=== PATIENT | male | born 1980 | race Caucasian/White ===

== ENCOUNTER 2017-05-15 09:42 | Inpatient (IN) | payer OTHER ==
--- NOTE | 2017-05-15 10:53 | Emergency Department Report ---
ED Headache HPI - General Chief Complaint: High BP Stated Complaint: HYPERTENSION,HEADACHE Time Seen by Provider: 05/15/17 10:36 Source: patient - History of Present Illness Timing/Duration: 4-6 hours Quality: moderate Head Injury Location: temporal, parietal Recent Head Trauma: frequent headaches, chronic headaches Associated Symptoms: weakness. denies: confusion, fatigue, facial pain, fever/ chills, flushing, loss of consciousness, nausea/vomiting, nasal congestion, nasal drainage, numbness in legs/feet, seizures, sinus infection, stiff neck, vision changes Allergies/Adverse Reactions: Allergies cefazolin Allergy (Severe, Verified 09/18/14 10:19) Anaphylaxis Home Medications: Ambulatory Orders Cinacalcet HCl [Sensipar] 90 mg PO HS 08/21/14 Labetalol [Normodyne TAB] 200 mg PO BID 08/21/14 Minoxidil [Loniten] 2.5 mg PO BID 08/21/14 NIFEdipine XL [Procardia Xl] 30 mg PO QDAY #30 tablet 11/19/14 cloNIDine [Catapres] 0.2 mg PO TID #90 tablet 11/19/14 Vancomycin/Ns 500 mg/100 ml 100 ml IV 3XW #1 bag 01/13/15 ED Review of Systems ROS: Stated complaint: HYPERTENSION,HEADACHE Other details as noted in HPI Comment: All other systems reviewed and negative ED Past Medical Hx - Past Medical History Previous Medical History?: Yes Hx Hypertension: Yes Hx Congestive Heart Failure: No Hx Diabetes: No Hx Liver Disease: No Hx Renal Disease: Yes (ESRD, dialysis T, Th, Sat) Hx Seizures: No Hx Asthma: No Hx COPD: No - Surgical History Past Surgical History?: Yes Additional Surgical History: Left upper extremity fistula (no longer uses). Vas -Cath (right subclavicular) - Social History Smoking Status: Current Some Day Smoker Substance Use Type: None - Medications Home Medications: Home Medications Medication Instructions Recorded Confirmed Last Taken Type Cinacalcet HCl [Sensipar] 90 mg PO HS 08/21/14 01/07/15 01/06/15 History Labetalol [Normodyne TAB] 200 mg PO BID 08/21/14 01/07/15 01/07/15 History Minoxidil [Loniten] 2.5 mg PO BID 08/21/14 01/07/15 01/07/15 History NIFEdipine XL [Procardia Xl] 30 mg PO QDAY #30 tablet 11/19/14 01/07/15 Rx cloNIDine [Catapres] 0.2 mg PO TID #90 tablet 11/19/14 01/07/15 01/07/15 Rx Vancomycin/Ns 500 mg/100 ml 100 ml IV 3XW #1 bag 01/13/15 Unknown Rx ED Physical Exam - General Limitations: No Limitations General appearance: alert, in no apparent distress - Head Head exam: Present: atraumatic, normocephalic - Eye Eye exam: Present: normal appearance, PERRL, EOMI - ENT ENT exam: Present: normal exam, mucous membranes moist - Neck Neck exam: Present: normal inspection - Respiratory Respiratory exam: Present: normal lung sounds bilaterally. Absent: respiratory distress, wheezes, rales, rhonchi, stridor, chest wall tenderness, accessory muscle use, decreased breath sounds - Cardiovascular Cardiovascular Exam: Present: regular rate, normal rhythm. Absent: systolic murmur, diastolic murmur, rubs, gallop - GI/Abdominal GI/Abdominal exam: Present: soft, normal bowel sounds. Absent: distended, tenderness, guarding, rebound - Rectal Rectal exam: Present: deferred - Extremities Exam Extremities exam: Present: full ROM, normal capillary refill, pedal edema. Absent: tenderness, calf tenderness - Back Exam Back exam: Present: normal inspection - Neurological Exam Neurological exam: Present: alert, oriented X3 - Psychiatric Psychiatric exam: Present: normal affect, normal mood - Skin Skin exam: Present: warm, dry, intact, normal color. Absent: rash ED Course Vital Signs 05/15/17 05/15/17 05/15/17 09:45 09:50 09:56 Temperature 97.9 F Pulse Rate 88 83 Respiratory 23 21 Rate Blood Pressure 250/136 250/136 250/136 O2 Sat by Pulse 95 97 Oximetry 05/15/17 05/15/17 05/15/17 10:00 10:10 10:20 Temperature Pulse Rate 68 66 68 Respiratory 23 25 H 23 Rate Blood Pressure 250/136 227/137 221/133 O2 Sat by Pulse 100 98 99 Oximetry 05/15/17 05/15/17 05/15/17 10:30 10:40 11:14 Temperature Pulse Rate 71 75 80 Respiratory 23 15 28 H Rate Blood Pressure 227/137 227/137 230/142 O2 Sat by Pulse 97 97 100 Oximetry 05/15/17 05/15/17 05/15/17 11:20 11:25 11:27 Temperature Pulse Rate 70 Respiratory 21 Rate Blood Pressure 212/126 230/142 230/142 O2 Sat by Pulse 96 Oximetry 05/15/17 05/15/17 05/15/17 11:30 11:40 11:50 Temperature Pulse Rate 67 67 72 Respiratory 22 20 23 Rate Blood Pressure 211/138 211/138 230/140 O2 Sat by Pulse 97 99 98 Oximetry ED Medical Decision Making - Lab Data Result diagrams: 05/15/17 10:36 05/15/17 10:36 - EKG Data Interpretation: unchanged when compared t - Radiology Data Radiology results: report reviewed, image reviewed - Medical Decision Making patient will need admission for emergent dialysis, i have given him labetalol and clonidine with not much success , discuss case with nephrology and IM and agree with plan for admission. Hyperkalemia , being treated with inuslin and albuterol, no HCO3 available , Mild volume overload and pulmonary edema. Critical care time in (mins) excluding proc time.: 35 Critical care attestation.: If time is entered above; I have spent that time in minutes in the direct care of this critically ill patient, excluding procedure time. ED Disposition Clinical Impression: Hypertension, ESRD (end stage renal disease) on dialysis, HTN (hypertension), malignant, Hyperkalemia, Pulmonary edema Disposition: OP ADMIT IP TO THIS HOSP Is pt being admited?: Yes Does the pt Need Aspirin: No Condition: Good Instructions: Hypertension (ED), Pulmonary Edema (ED) Referrals: PRIMARY CARE, [Primary Care Provider] - 3-5 Days Time of Disposition: 12:08
[2017-05-15 10:55] LABS: Hematocrit 27.9 % (35.5-45.6); Hemoglobin 9.3 gm/dl (11.8-15.2); Mean Corpuscular HGB Conc 34 % (32-34); Mean Corpuscular Hemoglobin 30 pg (28-32); Mean Corpuscular Volume 90 fl (84-94); Platelet Count 156 K/mm3 (140-440); Red Cell Distribution Width 14.9 % (13.2-15.2); White Blood Count 10.8 K/mm3 (4.5-11.0)
[2017-05-15] MEDS ORDERED: NORMODYNE IV ONE (10:56)
[2017-05-15] MEDS ORDERED: CATAPRES PO ONE (10:56)
[2017-05-15 11:10] LABS: Albumin 3.6 g/dL (3.9-5); Albumin/Globulin Ratio 1.1 %; Alkaline Phosphatase 74 units/L (35-129); Anion Gap 27 mmol/L; BUN/Creatinine Ratio 5.77; Blood Urea Nitrogen 71 mg/dL (9-20); Carbon Dioxide 20 mmol/L (22-30); Chloride 94.3 mmol/L (98-107); Glucose 98 mg/dL (75-100); Potassium 5.9 mmol/L (3.6-5.0); Sodium 135 mmol/L (137-145); Total Protein 6.8 g/dL (6.3-8.2)
[2017-05-15 11:16] LABS: Alanine Aminotransferase < 5 units/L (7-56)
--- NOTE | 2017-05-15 11:26 | Cat Scan Report ---
CT HEAD WITHOUT CONTRAST INDICATION: Headache. COMPARISON: None similar. FINDINGS: Noncontrast head CT demonstrates normal ventricles and sulci without acute or recent infarct, hemorrhage, mass effect or midline shift. No abnormal extra-axial fluid collections. Benign bilateral basal ganglia calcifications. Posterior fossa structures and basilar cisterns appear within normal limits. Symmetric eye globes. Nasal septal deviation. Clear paranasal sinuses and mastoid air cells. Intact calvarium. Normal overlying scalp soft tissues. CONCLUSION: No acute intracranial CT abnormality, as described. Thank you for the opportunity to participate in this patient's care.
[2017-05-15] MEDS ORDERED: PROVENTIL IH ONE (11:27)
--- NOTE | 2017-05-15 12:03 | XRay Report ---
PORTABLE CHEST INDICATION: Weakness. COMPARISON: 01/05/2015 FINDINGS: Portable, frontal chest radiograph demonstrates interval right sided central catheter removal. Stable cardiomediastinal silhouette. Subtle left pleural effusion now not excluded with new minimal fluid or thickening along the right minor fissure and mild bilateral bronchovascular prominence/redistribution. Intact bones. EKG leads. CONCLUSION: Mild pulmonary vascular congestion developing with few other findings, as above. Please correlate. Thank you for the opportunity to participate in this patient's care.
[2017-05-15] MEDS ORDERED: ZOFRAN IV PRN (12:10)
[2017-05-15] MEDS ORDERED: PROVENTIL IH PRN (12:10)
[2017-05-15] MEDS ORDERED: TYLENOL PO PRN (12:10)
[2017-05-15] MEDS ORDERED: DULCOLAX PR PRN (12:10)
--- NOTE | 2017-05-15 12:31 | History and Physical Report ---
<JT YANEZ - Last Filed: 05/15/17 14:40> History of Present Illness Date of examination: 05/15/17 Date of admission: 05/15/2017 Chief complaint: headache History of present illness: Patient is a 37 years old [place] male with the past medical history of hypertension and ESRD on Monday, and Monday. Patient complains a frequent bilateral headache since Monday (05/13/17).He described the pain as tightness and a gradual onset. The patient had difficulty of sleeping on Monday because of the pain. The pain continued to gradually increase in severity to an 8/10 today. The pain was exacerbated with movement, talking or working. Patient take Tylenol but was not significantly relieved. Patient states, he has a chronic headaches but not this intense. He denies confusion, fatigue, facial pain, fever/chills, flushing, loss of consciousness, nausea/vomiting, nasal congestion, nasal drainage, numbness in legs/feet, seizures, sinus infection, stiff neck, vision changes. Patient noncompliance with dialysis last hemodialysis that he had was on Monday05/15/17. CT of the head shows no acute intracranial abnormality. Chest x-ray reveals mild pulmonary vascular congestion. Past History Past Medical History: ESRD (on Hemodialysis), hypertension, other Past Surgical History: Other (Vascath placement) Social history: Lives alone Family history: hypertension Medications and Allergies Allergies Allergy/AdvReac Type Severity Reaction Status Date / Time cefazolin Allergy Severe Anaphylaxis Verified 09/18/14 10:19 Home Medications Medication Instructions Recorded Confirmed Last Taken Type Minoxidil [Loniten] 2.5 mg PO BID 08/21/14 05/15/17 05/14/17 History Cinacalcet [Sensipar] 30 mg PO QHS 05/15/17 05/15/17 05/14/17 History Clonidine HCl [Catapres] 0.3 mg PO TID 05/15/17 05/15/17 05/14/17 History Lisinopril [Zestril] 40 mg PO BID 05/15/17 05/15/17 05/14/17 History Vit B Cplx #11/FA/C/Biot/Zn Ox 1 each PO DAILY 05/15/17 05/15/17 05/14/17 History [Dialyvite with Zinc Tablet] amLODIPine [Norvasc] 10 mg PO QHS 05/15/17 05/15/17 05/14/17 History Active Meds: Active Medications Acetaminophen (Tylenol) 650 mg PO Q4H PRN PRN Reason: Pain MILD(1-3)/Fever >100.5/HOLLEY Albuterol (Proventil) 2.5 mg IH Q4HRT PRN PRN Reason: Shortness Of Breath Amlodipine Besylate (Norvasc) 10 mg PO QHS DAO Bisacodyl (Dulcolax) 10 mg [place] QDAY PRN PRN Reason: [place] [facility] [place]acalcet (Sensipar) 30 mg PO QHS DAO Clonidine HCl (Catapres) 0.2 mg PO TID DAO Clonidine HCl (Catapres) 0.1 mg PO TID DAO Lisinopril (Zestril) 40 mg PO BID DAO Minoxidil (Loniten) 2.5 mg PO BID DAO Multivit/Ca Carb/B Cmplx/FA/Prenat (Renal Caps) 1 cap PO QDAY DAO Ondansetron HCl (Zofran) 4 mg IV Q8H PRN PRN Reason: N/V unrelieved by Reglan Review of Systems Constitutional: no weight loss, no weight gain, no fever Ears, nose, mouth and throat: headache, no ear pain, no ear discharge, no tinnitis, no decreased hearing, no nose pain Cardiovascular: no chest pain, no orthopnea, no palpitations Respiratory: cough, no cough with sputum, no excessive sputum, no hemoptysis, no shortness of breath, no dyspnea on exertion Gastrointestinal: no abdominal pain, no nausea, no vomiting, no diarrhea Genitourinary Male: no dysuria, no hematuria, no flank pain, no discharge, no urinary frequency Rectal: no pain, no incontinence Musculoskeletal: no neck stiffness, no neck pain, no shooting arm pain, no arm numbness/tingling Integumentary: no rash, no pruritis, no redness, no sores Neurological: no transient paralysis, no paralysis, no weakness, no parathesias , no numbness Psychiatric: no anxiety, no memory loss, no change in sleep habits Endocrine: no cold intolerance, no heat intolerance, no polyphagia Hematologic/Lymphatic: no easy bruising, no easy bleeding Allergic/Immunologic: no urticaria, no allergic rhinitis Exam - Constitutional Vitals: Temp Pulse Resp BP Pulse Ox 97.9 F 72 23 230/140 98 05/15/17 09:56 05/15/17 11:50 05/15/17 11:50 05/15/17 11:50 05/15/17 11:50 General appearance: Present: no acute distress - EENT Eyes: Present: PERRL ENT: hearing intact - Respiratory Respiratory: bilateral: CTA - Cardiovascular Heart rate: 72 Rhythm: regular Heart Sounds: Present: S1 & S2 - Extremities Extremities: no ischemia Peripheral Pulses: within normal limits - Abdominal General gastrointestinal: Present: soft, non-tender Male genitourinary: Present: deferred - Rectal Rectal Exam: deferred - Integumentary Integumentary: Present: clear, warm, dry - Musculoskeletal Musculoskeletal: strength equal bilaterally - Psychiatric Psychiatric: appropriate mood/affect - Neurologic Neurologic: CNII-XII intact - Allied Health Allied health notes reviewed: nursing Results - Labs CBC & Chem 7: 05/15/17 10:36 05/15/17 10:36 Labs: Laboratory Last Values WBC 10.8 K/mm3 (4.5-11.0) 05/15/17 10:36 RBC 3.10 M/mm3 (3.65-5.03) L 05/15/17 10:36 Hgb 9.3 gm/dl (11.8-15.2) L 05/15/17 10:36 Hct 27.9 % (35.5-45.6) L 05/15/17 10:36 MCV 90 fl (84-94) 05/15/17 10:36 MCH 30 pg (28-32) 05/15/17 10:36 MCHC 34 % (32-34) 05/15/17 10:36 RDW 14.9 % (13.2-15.2) 05/15/17 10:36 Plt Count 156 K/mm3 (140-440) 05/15/17 10:36 Sodium 135 mmol/L (137-145) L 05/15/17 10:36 Potassium 5.9 mmol/L (3.6-5.0) H 05/15/17 10:36 Chloride 94.3 mmol/L (98-107) L 05/15/17 10:36 Carbon Dioxide 20 mmol/L (22-30) L 05/15/17 10:36 Anion Gap 27 mmol/L 05/15/17 10:36 BUN 71 mg/dL (9-20) H 05/15/17 10:36 Creatinine 12.3 mg/dL (0.8-1.5) H 05/15/17 10:36 Estimated GFR 5 ml/min 05/15/17 10:36 BUN/Creatinine Ratio 5.77 % 05/15/17 10:36 Glucose 98 mg/dL (75-100) 05/15/17 10:36 Calcium 11.0 mg/dL (8.4-10.2) H 05/15/17 10:36 Total Bilirubin 0.30 mg/dL (0.1-1.2) 05/15/17 10:36 AST 7 units/L (5-40) 05/15/17 10:36 ALT < 5 units/L (7-56) L 05/15/17 10:36 Alkaline Phosphatase 74 units/L (35-129) 05/15/17 10:36 Total Protein 6.8 g/dL (6.3-8.2) 05/15/17 10:36 Albumin 3.6 g/dL (3.9-5) L 05/15/17 10:36 Albumin/Globulin Ratio 1.1 % 05/15/17 10:36 - Imaging and Cardiology Chest x-ray: image reviewed (mild pulmonary vascular congestion) CT Scan - head: image reviewed Assessment and Plan Assessment and plan: ASSESSMENT/PLAN Patient is a 37 years old Finnish male with the past medical history of hypertension and ESRD on Monday, and Monday. Patient complains a frequent bilateral headache since Monday (05/13/17). CT of the head shows no acute intracranial abnormality. Chest x-ray reveals mild pulmonary vascular congestion. Patient have found that on hypertensive crisis, fluid overload, hyperkalemia and hyponatremia. Patient noncompliance with dialysis. Acute on chronic end-stage renal disease (ESRD) needing hemodialysis Patient will have emergent hemodialysis today Nephrology consulted Hyperkalemia Patient given Albuterol and insulin in the ED Patient will have dialysis that will correct potassium level We will repeat the BMP Closely monitor electrolytes Anemia related to chronic kidney disease Stable at this time Closely monitor CBC Noncompliance Discussed with patient about why the treatment plan and dialysis is important and Patient agreed upon course of action. Hypertension urgency We will resume home antihypertensive meds Hydralazine IV as needed for blood pressure systolic>160 Hyponatremia Most likely due to volume overload, patient will have Dialysis today that will be correct it. We will repeat BMP after HD Headache CT of the head shows no acute intracranial abnormality Most likely from hypertension DVT prophylaxis Heparin <SHAYLA IVORY M - Last Filed: 05/15/17 20:43> History of Present Illness Date of admission: 05/15/17 12:10 Medications and Allergies Active Meds: Active Medications Acetaminophen (Tylenol) 650 mg PO Q4H PRN PRN Reason: Pain MILD(1-3)/Fever >100.5/HOLLEY Last Admin: 05/15/17 18:00 Dose: 650 mg Albuterol (Proventil) 2.5 mg IH Q4HRT PRN PRN Reason: Shortness Of Breath Amlodipine Besylate (Norvasc) 10 mg PO QHS [facility] Last Admin: 05/15/17 20:17 Dose: 10 mg Bisacodyl (Dulcolax) 10 mg SC QDAY PRN PRN Reason: [place] [facility] [place]acalcet (Sensipar) 30 mg PO QHS [facility] Clonidine HCl (Catapres) 0.2 mg PO TID [facility] Last Admin: 05/15/17 20:16 Dose: 0.2 mg Clonidine HCl (Catapres) 0.1 mg PO TID [facility] Last Admin: 05/15/17 20:16 Dose: 0.1 mg Hydralazine HCl (Apresoline) 20 mg IV Q4HR PRN PRN Reason: BP >160/100 Lisinopril (Zestril) 40 mg PO BID [facility] Minoxidil (Loniten) 2.5 mg PO BID [facility] Multivit/Ca Carb/B Cmplx/FA/Prenat (Renal Caps) 1 cap PO QDAY [facility] Ondansetron HCl (Zofran) 4 mg IV Q8H PRN PRN Reason: N/V unrelieved by Reglan Exam - Constitutional Vitals: Temp Pulse Resp BP Pulse Ox 97.8 F 72 20 202/125 97 05/15/17 19:56 05/15/17 19:56 05/15/17 19:56 05/15/17 20:16 05/15/17 19:56 Results - Labs CBC & Chem 7: 05/15/17 10:36 05/15/17 10:36 Labs: Laboratory Last Values WBC 10.8 K/mm3 (4.5-11.0) 05/15/17 10:36 RBC 3.10 M/mm3 (3.65-5.03) L 05/15/17 10:36 Hgb 9.3 gm/dl (11.8-15.2) L 05/15/17 10:36 Hct 27.9 % (35.5-45.6) L 05/15/17 10:36 MCV 90 fl (84-94) 05/15/17 10:36 MCH 30 pg (28-32) 05/15/17 10:36 MCHC 34 % (32-34) 05/15/17 10:36 RDW 14.9 % (13.2-15.2) 05/15/17 10:36 Plt Count 156 K/mm3 (140-440) 05/15/17 10:36 Sodium 135 mmol/L (137-145) L 05/15/17 10:36 Potassium 5.9 mmol/L (3.6-5.0) H 05/15/17 10:36 Chloride 94.3 mmol/L (98-107) L 05/15/17 10:36 Carbon Dioxide 20 mmol/L (22-30) L 05/15/17 10:36 Anion Gap 27 mmol/L 05/15/17 10:36 BUN 71 mg/dL (9-20) H 05/15/17 10:36 Creatinine 12.3 mg/dL (0.8-1.5) H 05/15/17 10:36 Estimated GFR 5 ml/min 05/15/17 10:36 BUN/Creatinine Ratio 5.77 % 05/15/17 10:36 Glucose 98 mg/dL (75-100) 05/15/17 10:36 POC Glucose 105 (70-105) 05/15/17 12:59 Calcium 11.0 mg/dL (8.4-10.2) H 05/15/17 10:36 Total Bilirubin 0.30 mg/dL (0.1-1.2) 05/15/17 10:36 AST 7 units/L (5-40) 05/15/17 10:36 ALT < 5 units/L (7-56) L 05/15/17 10:36 Alkaline Phosphatase 74 units/L (35-129) 05/15/17 10:36 Total Protein 6.8 g/dL (6.3-8.2) 05/15/17 10:36 Albumin 3.6 g/dL (3.9-5) L 05/15/17 10:36 Albumin/Globulin Ratio 1.1 % 05/15/17 10:36
[2017-05-15] MEDS ORDERED: D50W (25GM) IV ONE (13:10)
--- NOTE | 2017-05-15 13:26 | Admit Criteria Form ---
Admission Criteria Documentation: HYPERTENSION Clinical Indications for Admission to Inpatient Care ( yurok/check or initial the applicable condition/criteria) Admission is indicated for 1 or more of the following(1)(2)(3)(4)(5)(6)(7)(8)(9) (10): []I. Hypertensive emergency, with evidence of acute and progressing target organ disease as indicated by 1 or more of the following: [ ]a) Hypertensive encephalopathy (e.g., confusion, altered mental status) (11) [ ]b) Cerebral infarction [ ]c) Intracranial hemorrhage [ ]d) Myocardial ischemia or infarction [ ]e) Heart failure (eg. Pulmonary edema) [ ]f) Aortic dissection [ ]g) Increased creatinine (new) with reduction of more than 50% in estimated glomerular filtration rate from baseline [ ]h) Seizure [ ]i) Papilledema [ ]j) Retinal hemorrhage [ ]k) Microangiopathic hemolytic anemia [ ]l) Other significant finding secondary to hypertension [ ]II. Adrenergic or sympathomimetic crisis (e.g., severe hypertension due to pheochromocytoma crisis, cocaine, phencyclindine, or amphetamine intoxication, or clonidine withdrawal) [X]III. Severe hypertension (SBP greater than 180 mmHg or DBP greater than 110 mmHg or greater than the 95th percentile for age, gender, and height in pediatric patients) that cannot be controlled (e.g., to SBP less than 160 mmHg and DBP less than 100 mmHg in adults) by treatment with oral medication in emergency department or observation care (12) Extended stay beyond goal length of staymay be needed for(21)(22): [ ]a) Persistent hypertensive encephalopathy [ ]b) Continuation of pulmonary edema [ ]c) Recurring or persistent severe hypertension [ ]d) Target organ damage (eg, angina, stroke, aortic dissection) The original [employer] content created by [employer] has been revised. The portions of the content which have been revised are identified through the use of italic text or in bold, and [employer] has neither reviewed nor approved the modified material. All other unmodified content is copyright [employer]. Please see references footnoted in the original [employer] edition 2016 Admission Criteria Met: Yes
[2017-05-15] MEDS ORDERED: NON-FORMULARY (Clonidine Hcl [Catapres] 0.3 MG) PO SCH (14:00)
[2017-05-15] MEDS: CATAPRES PO SCH ×4 (14:07→20:16)
[2017-05-15] MEDS ORDERED: NACL 0.9 (PRIMING MACHINE ONLY DIALYSIS) MC ONE (17:09)
[2017-05-15] MEDS: NORVASC PO SCH ×2 (20:17→21:50)
[2017-05-15] MEDS: LONITEN PO SCH (21:34)
[2017-05-15] MEDS: ZESTRIL PO SCH (21:49)
[2017-05-15] MEDS ORDERED: SENSIPAR PO SCH (22:00)
[2017-05-16] MEDS: APRESOLINE IV PRN ×2 (00:22→04:55)
[2017-05-16 04:12] LABS: Basophils % (Auto) 1.5 % (0.0-1.8); Hematocrit 29.3 % (35.5-45.6); Hemoglobin 10.1 gm/dl (11.8-15.2); Mean Corpuscular HGB Conc 34 % (32-34); Mean Corpuscular Hemoglobin 31 pg (28-32); Mean Corpuscular Volume 89 fl (84-94); Platelet Count 175 K/mm3 (140-440); Red Blood Count 3.29 M/mm3 (3.65-5.03); Red Cell Distribution Width 14.8 % (13.2-15.2); White Blood Count 9.5 K/mm3 (4.5-11.0)
[2017-05-16 04:26] LABS: BUN/Creatinine Ratio 4.92; Calcium 9.5 mg/dL (8.4-10.2); Chloride 91.3 mmol/L (98-107); Potassium 4.2 mmol/L (3.6-5.0)
[2017-05-16] MEDS: CATAPRES PO SCH ×4 (08:47→15:05)
--- NOTE | 2017-05-16 09:06 | Consultation ---
History of Present Illness - Reason for Consult Consult date: 05/16/17 end stage renal disease, hyperkalemia, accelerated hypertension Requesting physician: SHAYLA IVORY - History of Present Illness Patient is a 37 years old English male with the past medical history of hypertension and ESRD on Monday, and Monday. Patient complains a frequent bilateral headache since Monday (05/13/17).He described the pain as tightness and a gradual onset. The patient had difficulty of sleeping on Monday because of the pain. The pain continued to gradually increase in severity to an 8/10 today. The pain was exacerbated with movement, talking or working. Patient take Tylenol but was not significantly relieved. Patient states, he has a chronic headaches but not this intense. He denies confusion, fatigue, facial pain, fever/chills, flushing, loss of consciousness, nausea/vomiting, nasal congestion, nasal drainage, numbness in legs/feet, seizures, sinus infection, stiff neck, vision changes. Patient noncompliance with dialysis last hemodialysis that he had was on Monday05/15/17. CT of the head shows no acute intracranial abnormality. Chest x-ray reveals mild pulmonary vascular congestion. Past History Past Medical History: anemia, dialysis, ESRD (on Hemodialysis), hypertension, renal failure, other Past Surgical History: Other (Vascath placement) Social history: Lives alone Family history: hypertension Medications and Allergies Allergies Allergy/AdvReac Type Severity Reaction Status Date / Time cefazolin Allergy Severe Anaphylaxis Verified 09/18/14 10:19 Home Medications Medication Instructions Recorded Confirmed Last Taken Type Minoxidil [Loniten] 2.5 mg PO BID 08/21/14 05/15/17 05/14/17 History Cinacalcet [Sensipar] 30 mg PO QHS 05/15/17 05/15/17 05/14/17 History Clonidine HCl [Catapres] 0.3 mg PO TID 05/15/17 05/15/17 05/14/17 History Lisinopril [Zestril] 40 mg PO BID 05/15/17 05/15/17 05/14/17 History Vit B Cplx #11/FA/C/Biot/Zn Ox 1 each PO DAILY 05/15/17 05/15/17 05/14/17 History [Dialyvite with Zinc Tablet] amLODIPine [Norvasc] 10 mg PO QHS 05/15/17 05/15/17 05/14/17 History Active Meds: Active Medications Acetaminophen (Tylenol) 650 mg PO Q4H PRN PRN Reason: Pain MILD(1-3)/Fever >100.5/[place]OLLEY Last Admin: 05/15/17 18:00 Dose: 650 mg Albuterol (Proventil) 2.5 mg IH Q4HRT PRN PRN Reason: Shortness Of Breath Amlodipine Besylate (Norvasc) 10 mg PO QHS [facility] Last Admin: 05/15/17 21:50 Dose: Not Given Bisacodyl (Dulcolax) 10 mg [place] QDAY PRN PRN Reason: Constipation unrelieved by MOM Cinacalcet (Sensipar) 30 mg PO QHS [facility] Last Admin: 05/15/17 21:34 Dose: 30 mg Clonidine HCl (Catapres) 0.2 mg PO TID [facility] Last Admin: 05/16/17 08:47 Dose: 0.2 mg Clonidine HCl (Catapres) 0.1 mg PO TID [facility] Last Admin: 05/16/17 08:47 Dose: 0.1 mg Hydralazine HCl (Apresoline) 20 mg IV Q4HR PRN PRN Reason: BP >160/100 Last Admin: 05/16/17 04:55 Dose: 20 mg Lisinopril (Zestril) 40 mg PO BID [facility] Last Admin: 05/15/17 21:49 Dose: 40 mg Minoxidil (Loniten) 2.5 mg PO BID [facility] Last Admin: 05/15/17 21:34 Dose: 2.5 mg Multivit/Ca Carb/B Cmplx/FA/Prenat (Renal Caps) 1 cap PO QDAY [facility] Ondansetron HCl (Zofran) 4 mg IV Q8H PRN PRN Reason: N/V unrelieved by Reglan Review of Systems Constitutional: fatigue, weakness, malaise Exam - Vital Signs Vital signs: Vital Signs BP 250/136 05/15/17 09:45 - Physical Exam Narrative exam: General appearance: Present: no acute distress - EENT Eyes: Present: PERRL ENT: hearing intact - Respiratory Respiratory: bilateral: CTA - Cardiovascular Heart rate: 72 Rhythm: regular Heart Sounds: Present: S1 & S2 - Extremities Extremities: no ischemia Peripheral Pulses: within normal limits - Abdominal General gastrointestinal: Present: soft, non-tender Male genitourinary: Present: deferred - Rectal Rectal Exam: deferred - Integumentary Integumentary: Present: clear, warm, dry - Musculoskeletal Musculoskeletal: strength equal bilaterally - Psychiatric Psychiatric: appropriate mood/affect - Neurologic Neurologic: CNII-XII intact Results - Lab Results 05/16/17 03:37 05/16/17 03:37 Most recent lab results Calcium 9.5 mg/dL (8.4-10.2) 05/16/17 03:37 Assessment and Plan Impression: * ESRD * ACC HTN * hyperkalemia * anemia in esrd * Sec Hyperparathyroidism Plan: * s/p stat hd and HD TTHSAT * uf as tolerated * control bp * stress compliance with bp meds and dialysis * strict i/os * renal diet * fluid restriction * home after hd today from renal standpoint
--- NOTE | 2017-05-16 09:20 | Discharge Summary ---
Providers - Providers Date of Admission: 05/15/17 12:10 Attending physician: SHAYLA IVORY MD 05/15/17 12:25 Consult to Physician [CONS] Routine Consulting Provider: CLEVELAND DELGADO Reason For Exam: ESRD, on HD Place consult to:: yes Notified:: yes Phone number called:: yes Primary care physician: VIANEY MO MD Hospitalization Condition: Good Hospital course: 37-year-old male with a past medical history of uncontrolled hypertension, end- stage renal disease and admits to missing dialysis. Presented with headache and elevated blood pressure, he was found to have hyperkalemia and was taken to urgent hemodialysis. He was treated with IV blood pressure medications and his oral medications were restarted, he also admitted to poor compliance with them. After receiving hemodialysis patient improved, his blood pressure also improved. On hyperkalemia resolved. After being counseled about improving compliance was discharged home in an improved condition Discharge diagnoses Hypertensive urgency End-stage renal disease Hyperkalemia Metabolic acidosis Disposition: TO HOME OR SELFCARE Time spent for discharge: 33 minutes Core Measure Documentation - Palliative Care Palliative Care/ Comfort Measures: Not Applicable - Core Measures Any of the following diagnoses?: none Exam - Constitutional Vitals: Temp Pulse Resp BP Pulse Ox 97.9 F 80 21 179/111 98 05/16/17 04:43 05/16/17 06:00 05/16/17 04:43 05/16/17 04:55 05/16/17 04:43 General appearance: Present: no acute distress, well-nourished - EENT Eyes: Present: PERRL ENT: hearing intact, clear oral mucosa - Neck Neck: Present: supple, normal ROM - Respiratory Respiratory effort: normal Respiratory: bilateral: CTA - Cardiovascular Heart Sounds: Present: S1 & S2. Absent: rub, click - Extremities Extremities: pulses symmetrical, No edema Peripheral Pulses: within normal limits - Abdominal General gastrointestinal: Present: soft, non-tender, non-distended, normal bowel sounds Male genitourinary: Present: normal - Integumentary Integumentary: Present: clear, warm, dry - Musculoskeletal Musculoskeletal: gait normal, strength equal bilaterally - Psychiatric Psychiatric: appropriate mood/affect, intact judgment & insight - Neurologic Neurologic: CNII-XII intact, moves all extremities Plan Follow up with: PRIMARY CAREMD [Primary Care Provider] - 3-5 Days Prescriptions: Clonidine HCl [Catapres] 0.3 mg PO TID #90 tablet Lisinopril [Zestril] 40 mg PO DAILY #30 tablet Minoxidil [Loniten] 2.5 mg PO BID #60 tablet NIFEdipine XL [Procardia Xl] 60 mg PO Q12HR #60 tablet
[2017-05-16] MEDS ORDERED: NON-FORMULARY (Vit B Cplx #11/Fa/C/Biot/Zn Ox [Dialyvite With Zinc Tablet] 1 EACH) PO SCH (10:00)
[2017-05-16] MEDS ORDERED: Renal Caps PO SCH (10:00)
[2017-05-16] MEDS ORDERED: PROCARDIA XL PO SCH (10:00)
[2017-05-16 14:36] VITALS: BP 171/111
[2017-05-16] MEDS: LONITEN PO SCH (15:04)
[2017-05-16] MEDS: ZESTRIL PO SCH (15:05)
== END 2017-05-16 17:32 | disposition home or self-care (01) | DRG 682 ==
LOC: ED 09:42 → 4A 12:10
PROVIDERS: ADMIT Internal Medicine; ATTEND Internal Medicine
PROC: 5A1D60Z (ICD-10-PCS; principal; 2017-05-15)
DX: I12.0 Hypertensive chronic kidney disease with stage 5 chronic kidney disease or end stage renal disease (principal); N18.6 End stage renal disease; I16.1 Hypertensive emergency; E87.1 Hypo-osmolality and hyponatremia; I16.9 Hypertensive crisis, unspecified; E87.5 Hyperkalemia; Z60.2 Problems related to living alone; D63.1 Anemia in chronic kidney disease; I16.0 Hypertensive urgency; E87.70 Fluid overload, unspecified; E21.3 Hyperparathyroidism, unspecified; I87.8 Other specified disorders of veins; R09.89 Other specified symptoms and signs involving the circulatory and respiratory systems; Z88.1 Allergy status to other antibiotic agents; Z91.15 Patient's noncompliance with renal dialysis; Z99.2 Dependence on renal dialysis; Z71.89 Other specified counseling; Z82.49 Family history of ischemic heart disease and other diseases of the circulatory system
CPT/HCPCS: 36415; 70450; 71010; 80048; 80053; 82962; 85025; 85027; 93005; 93010; 94640; 96374; 96375; 99291; 99406; J0360; J1815; J7030

== ENCOUNTER 2017-07-15 11:47 | Emergency (ER) | payer SELFPAY ==
[2017-07-15 12:58] LABS: Hematocrit 40.1 % (35.5-45.6); Hemoglobin 13.1 gm/dl (11.8-15.2); Mean Corpuscular HGB Conc 33 % (32-34); Mean Corpuscular Hemoglobin 32 pg (28-32); Mean Corpuscular Volume 97 fl (84-94); Platelet Count 181 K/mm3 (140-440); Red Blood Count 4.15 M/mm3 (3.65-5.03); Red Cell Distribution Width 15.3 % (13.2-15.2); White Blood Count 7.1 K/mm3 (4.5-11.0)
[2017-07-15 13:46] LABS: Chloride 94.3 mmol/L (98-107)
[2017-07-15 14:31] LABS: Basophils % (Manual) 0 % (0.0-1.8); Blastocytes % (Manual) 0 %; Diff Status Complete; Platelet Estimate Consistent w Auto; Stomatocytes Few
[2017-07-15 14:32] LABS: Potassium 7.7 mmol/L (3.6-5.0)
[2017-07-15] MEDS ORDERED: CALCIUM GLUCONATE 2,000 MG in NACL 0.9% 100 ML IV ONE (14:52)
[2017-07-15] MEDS ORDERED: PROVENTIL IH ONE (14:52)
[2017-07-15] MEDS ORDERED: APRESOLINE IV ONE (15:01)
--- NOTE | 2017-07-15 15:15 | Emergency Department Report ---
ED General Adult HPI - General Chief complaint: Medical Clearance Stated complaint: missed hd today and Time Seen by Provider: 07/15/17 14:44 Source: patient, RN notes reviewed, old records reviewed Mode of arrival: Ambulatory Limitations: No Limitations - History of Present Illness -: Gradual Associated Symptoms: denies other symptoms. denies: confusion, chest pain, cough, diaphoresis, fever/chills, headaches, loss of appetite, malaise, nausea/ vomiting, rash, seizure, shortness of breath, syncope, weakness Treatments Prior to Arrival: none (missed hd today and . denies allergy to cefazolin. reports high k and on po kayex. for inc k. Production Engine Repairer is Dr Solitario.) - Related Data Home Medications Medication Instructions Recorded Confirmed Last Taken Cinacalcet [Sensipar] 30 mg PO QHS 05/15/17 05/15/17 05/14/17 Vit B Cplx #11/FA/C/Biot/Zn Ox 1 each PO DAILY 05/15/17 05/15/17 05/14/17 [Dialyvite with Zinc Tablet] Previous Rx's Medication Instructions Recorded Last Taken Type Clonidine HCl [Catapres] 0.3 mg PO TID #90 tablet 05/16/17 Unknown Rx Lisinopril [Zestril] 40 mg PO DAILY #30 tablet 05/16/17 Unknown Rx Minoxidil [Loniten] 2.5 mg PO BID #60 tablet 05/16/17 Unknown Rx NIFEdipine XL [Procardia Xl] 60 mg PO Q12HR #60 tablet 05/16/17 Unknown Rx Allergies Allergy/AdvReac Type Severity Reaction Status Date / Time cefazolin Allergy Severe Anaphylaxis Verified 09/18/14 10:19 ED Review of Systems ROS: Stated complaint: DYALISIS Other details as noted in HPI Comment: Unobtainable due to pts medical conditions Constitutional: no symptoms reported, see HPI Eyes: as per HPI ENT: as per HPI Respiratory: no symptoms reported, see HPI Cardiovascular: as per HPI Endocrine: no symptoms reported, see HPI Gastrointestinal: as per HPI Genitourinary: as per HPI Musculoskeletal: as per HPI Skin: as per HPI Neurological: as per HPI Psychiatric: as per HPI Hematological/Lymphatic: as per HPI ED Past Medical Hx - Past Medical History Hx Hypertension: Yes Hx CVA: No Hx Heart Attack/AMI: No Hx Congestive Heart Failure: No Hx Diabetes: No Hx Deep Vein Thrombosis: No Hx Pulmonary Embolism: No Hx GERD: No Hx Liver Disease: No Hx Renal Disease: Yes (ESRD, dialysis T, , Mon) Hx of Cancer: No Hx Sickle Cell Disease: No Hx Arthritis: No Hx Headaches / Migraines: Yes Hx Seizures: No Hx Psychiatric Treatment: No Hx Asthma: No Hx COPD: No Hx Tuberculosis: No Hx Dementia: No Hx HIV: No Additional medical history: arianne meds. senispar, vit b complex, clonidine, lisinopril, minoxidil, norvask, ran- renal; kaexalate - Surgical History Additional Surgical History: Left upper extremity fistula (no longer uses). Vas -Cath (right subclavicular) - Family History Family history: no significant - Social History Smoking Status: Current Every Day Smoker Substance Use Type: None - Medications Home Medications: Home Medications Medication Instructions Recorded Confirmed Last Taken Type Cinacalcet [Sensipar] 30 mg PO QHS 05/15/17 05/15/17 05/14/17 History Vit B Cplx #11/FA/C/Biot/Zn Ox 1 each PO DAILY 05/15/17 05/15/17 05/14/17 History [Dialyvite with Zinc Tablet] Clonidine HCl [Catapres] 0.3 mg PO TID #90 tablet 05/16/17 Unknown Rx Lisinopril [Zestril] 40 mg PO DAILY #30 tablet 05/16/17 Unknown Rx Minoxidil [Loniten] 2.5 mg PO BID #60 tablet 05/16/17 Unknown Rx NIFEdipine XL [Procardia Xl] 60 mg PO Q12HR #60 tablet 05/16/17 Unknown Rx ED Physical Exam - General Limitations: No Limitations ED Course Vital Signs 07/15/17 07/15/17 07/15/17 12:03 15:27 15:37 Temperature 98 F Pulse Rate 82 58 L Pulse Rate [ 74 Anterior Bilateral Throughout] Respiratory 18 16 Rate Respiratory 18 Rate [Anterior Bilateral Throughout] Blood Pressure 187/135 165/108 Blood Pressure 165/108 [Left] O2 Sat by Pulse 98 100 Oximetry 07/15/17 16:34 Temperature Pulse Rate Pulse Rate [ Anterior Bilateral Throughout] Respiratory Rate Respiratory 16 Rate [Anterior Bilateral Throughout] Blood Pressure Blood Pressure [Left] O2 Sat by Pulse Oximetry - Reevaluation(s) Reevaluation #1: 07/15/17 15:13 HD RN notified of pt presentation to ER Dr. Jorge aponte HD RN aware of pt being here. has asked us to call Dr. Casillas He was paged. labs ordered and p initial k 7.7 no cp no sob htn- a/c reports taking meds no french neuro intact hydralazine for bp. 07/15/17 16:28 Dr Casillas has not returned page Reevaluation #2: 07/15/17 16:42 Dr Casillas placing HD orders. Dr. Patel aware. VSS To HD ED Medical Decision Making - Lab Data Result diagrams: 07/15/17 12:43 07/15/17 15:15 - Medical Decision Making hd - Differential Diagnosis a/c kd with non compliance- missed last 1 hd Critical care attestation.: If time is entered above; I have spent that time in minutes in the direct care of this critically ill patient, excluding procedure time. ED Disposition Clinical Impression: ESRD (end stage renal disease) on dialysis, Hyperkalemia, HTN (hypertension), malignant, Non-adherence to medical treatment Disposition: OP ADMIT IP TO THIS HOSP Is pt being admited?: Yes Does the pt Need Aspirin: No Condition: Stable Referrals: PRIMARY CARE, [Primary Care Provider] - 3-5 Days Time of Disposition: 16:29
[2017-07-15 15:46] LABS: BUN/Creatinine Ratio 5.08; Calcium 9.4 mg/dL (8.4-10.2); Chloride 92.5 mmol/L (98-107)
[2017-07-15] MEDS ORDERED: NACL 0.9% 100 ML IV PRN (16:24)
--- NOTE | 2017-07-15 21:13 | History and Physical Report ---
History of Present Illness Chief complaint: I missed dialysis History of present illness: 37 YO Male with ESRD on HD(T,R,Sa), HTN, Migraine HOLLEY presents to ED for evaluation. Pt states that he missed 2 dialysis sessions, and presents for dialysis. Pt denies fever, chills, CP, Palpitations, Difficulty breathing, shortness of breath, leg swelling, calf pain, productive cough or recent ill contacts. Pt seen and evaluated in ED. Nephrology service consulted for dialysis orders. Pt sent to dialysis unit, and underwent dialysis. Pt returned to ED s/p dialysis. Pt medically optimized subsequently discharged home and instructed to f/u with PCP 1wk, and to resume dialysis schedule as per nephrology service. Pt to resume scheduled kayelelate. Pt discussed with Dr. Casillas. Past History Past Medical History: ESRD Past Surgical History: Other (L AVF, Vas Cath) Social history: single, smoking. denies: alcohol abuse, prescription drug abuse , IV drug use Family history: hypertension Medications and Allergies Allergies Allergy/AdvReac Type Severity Reaction Status Date / Time cefazolin Allergy Severe Anaphylaxis Verified 09/18/14 10:19 Home Medications Medication Instructions Recorded Confirmed Last Taken Type Cinacalcet [Sensipar] 30 mg PO QHS 05/15/17 07/15/17 05/14/17 History Vit B Cplx #11/FA/C/Biot/Zn Ox 1 each PO DAILY 05/15/17 07/15/17 05/14/17 History [Dialyvite with Zinc Tablet] Clonidine HCl [Catapres] 0.3 mg PO TID #90 tablet 05/16/17 07/15/17 Unknown Rx Lisinopril [Zestril] 40 mg PO DAILY #30 tablet 05/16/17 07/15/17 Unknown Rx Minoxidil [Loniten] 2.5 mg PO BID #60 tablet 05/16/17 07/15/17 Unknown Rx NIFEdipine XL [Procardia Xl] 60 mg PO Q12HR #60 tablet 05/16/17 07/15/17 Unknown Rx Active Meds: Active Medications Sodium Chloride (Nacl 0.9%) 100 mls @ 999 mls/hr IV TASHA PRN PRN Reason: Hypotension Review of Systems Constitutional: no weight loss, no weight gain, no fever, no chills Ears, nose, mouth and throat: no ear pain, no ear discharge, no tinnitis, no decreased hearing Cardiovascular: no chest pain, no orthopnea, no palpitations, no rapid/ irregular heart beat, no edema, no shortness of breath Respiratory: no cough, no cough with sputum, no excessive sputum, no hemoptysis , no shortness of breath, no dyspnea on exertion Gastrointestinal: no abdominal pain, no nausea, no vomiting, no diarrhea, no constipation Genitourinary Male: no dysuria, no hematuria, no flank pain, no discharge, no urinary frequency, no urinary hesitancy, no nocturia Rectal: no pain, no incontinence, no bleeding Musculoskeletal: no neck stiffness, no neck pain, no shooting arm pain, no arm numbness/tingling, no low back pain Integumentary: no deferred, no rash, no pruritis, no redness, no sores, no wounds, no jaundice Neurological: no head injury, no transient paralysis, no paralysis, no weakness , no parathesias, no numbness, no tingling Psychiatric: no anxiety, no memory loss, no change in sleep habits, no sleep disturbances, no insomnia, no hypersomnia Endocrine: no cold intolerance, no heat intolerance, no polyphagia, no excessive thirst, no polydipsia Hematologic/Lymphatic: no easy bruising, no easy bleeding Allergic/Immunologic: no urticaria, no allergic rhinitis, no wheezing Exam - Constitutional Vitals: Temp Pulse Resp BP Pulse Ox 97.8 F 96 H 18 155/96 100 07/15/17 20:45 07/15/17 20:45 07/15/17 20:45 07/15/17 20:45 07/15/17 15:27 General appearance: Present: no acute distress, well-nourished - EENT Eyes: Present: PERRL ENT: hearing intact, clear oral mucosa - Neck Neck: Present: supple, normal ROM - Respiratory Respiratory effort: normal Respiratory: bilateral: CTA - Cardiovascular Heart Sounds: Present: S1 & S2. Absent: rub, click - Extremities Extremities: pulses symmetrical, No edema Peripheral Pulses: within normal limits - Abdominal General gastrointestinal: Present: soft, non-tender, non-distended, normal bowel sounds Male genitourinary: Present: normal - Integumentary Integumentary: Present: clear, warm, dry - Musculoskeletal Musculoskeletal: gait normal, strength equal bilaterally - Psychiatric Psychiatric: appropriate mood/affect, intact judgment & insight - Neurologic Neurologic: CNII-XII intact, moves all extremities Results - Labs CBC & Chem 7: 07/15/17 12:43 07/15/17 15:15 Labs: Abnormal lab results 07/15/17 07/15/17 07/15/17 Range/Units 12:43 12:43 15:15 MCV 97 H (84-94) fl RDW 15.3 H (13.2-15.2) % Eosinophils % (Manual) 21.0 H (0.0-4.3) % Eosinophils # (Manual) 1.5 H (0.0-0.4) K/mm3 Sodium 134 L (137-145) mmol/L Potassium 7.7 H* 7.0 H* (3.6-5.0) mmol/L Chloride 94.3 L 92.5 L (98-107) mmol/L BUN 58 H (9-20) mg/dL Creatinine 11.4 H (0.8-1.5) mg/dL Glucose 110 H (75-100) mg/dL Magnesium (1.7-2.3) mg/dL 07/15/17 Range/Units 15:15 MCV (84-94) fl RDW (13.2-15.2) % Eosinophils % (Manual) (0.0-4.3) % Eosinophils # (Manual) (0.0-0.4) K/mm3 Sodium (137-145) mmol/L Potassium (3.6-5.0) mmol/L Chloride (98-107) mmol/L BUN (9-20) mg/dL Creatinine (0.8-1.5) mg/dL Glucose (75-100) mg/dL Magnesium 3.00 H (1.7-2.3) mg/dL Assessment and Plan - Patient Problems (1) ESRD (end stage renal disease) on dialysis Status: Acute Plan to address problem: Pt underwent dialysis. Pt medically optimized, Pt discharged home, Pt to resume dialysis as per nephrology, and F/U with nephrology on monday with potassium level. Pt to resume prehospital kayexelate dosing. (2) Noncompliance Status: Acute Plan to address problem: Pt counseled.
[2017-07-15 21:24] VITALS: BP 151/86
--- NOTE | 2017-07-15 22:06 | Consultation ---
Medications and Allergies Allergies Allergy/AdvReac Type Severity Reaction Status Date / Time cefazolin Allergy Severe Anaphylaxis Verified 09/18/14 10:19 Home Medications Medication Instructions Recorded Confirmed Last Taken Type Cinacalcet [Sensipar] 30 mg PO QHS 05/15/17 07/15/17 05/14/17 History Vit B Cplx #11/FA/C/Biot/Zn Ox 1 each PO DAILY 05/15/17 07/15/17 05/14/17 History [Dialyvite with Zinc Tablet] Clonidine HCl [Catapres] 0.3 mg PO TID #90 tablet 05/16/17 07/15/17 Unknown Rx Lisinopril [Zestril] 40 mg PO DAILY #30 tablet 05/16/17 07/15/17 Unknown Rx Minoxidil [Loniten] 2.5 mg PO BID #60 tablet 05/16/17 07/15/17 Unknown Rx NIFEdipine XL [Procardia Xl] 60 mg PO Q12HR #60 tablet 05/16/17 07/15/17 Unknown Rx Exam - Vital Signs Vital signs: Vital Signs Temp Pulse Resp BP Pulse Ox 98 F 82 18 187/135 98 07/15/17 12:03 07/15/17 12:03 07/15/17 12:03 07/15/17 12:03 07/15/17 12:03 Results - Lab Results 07/15/17 12:43 07/15/17 15:15 Most recent lab results Calcium 9.4 mg/dL (8.4-10.2) 07/15/17 15:15 Magnesium 3.00 mg/dL (1.7-2.3) H 07/15/17 15:15
== END 2017-07-15 21:24 | disposition admitted as inpatient to this hospital (09) ==
LOC: ED 11:47
DX: I12.0 Hypertensive chronic kidney disease with stage 5 chronic kidney disease or end stage renal disease (principal); N18.6 End stage renal disease; Z99.2 Dependence on renal dialysis; E87.5 Hyperkalemia; G43.909 Migraine, unspecified, not intractable, without status migrainosus; F17.200 Nicotine dependence, unspecified, uncomplicated; Z88.1 Allergy status to other antibiotic agents
CPT/HCPCS: 36415; 80048; 80051; 82550; 83735; 85007; 85025; 93005; 93010; 94644; 96374; 99284; J0360; J0610

== ENCOUNTER 2018-01-10 21:47 | Inpatient (IN) | payer OTHER ==
[2018-01-10] MEDS ORDERED: NACL 0.9% 500 ML 500 ML IV ONE (22:20)
[2018-01-10 22:42] LABS: Basophils % (Auto) 0.4 % (0.0-1.8); Eosinophils # (Auto) 0.7 K/mm3 (0.0-0.4); Eosinophils % (Auto) 6.4 % (0.0-4.3); Hemoglobin 9.3 gm/dl (11.8-15.2); Lymphocytes # (Auto) 0.6 K/mm3 (1.2-5.4); Lymphocytes % (Auto) 5.6 % (13.4-35.0); Mean Corpuscular HGB Conc 33 % (32-34); Mean Corpuscular Hemoglobin 31 pg (28-32); Mean Corpuscular Volume 93 fl (84-94); Monocytes # (Auto) 0.6 K/mm3 (0.0-0.8); Monocytes % (Auto) 5.5 % (0.0-7.3); Platelet Count 180 K/mm3 (140-440); Red Cell Distribution Width 13.3 % (13.2-15.2)
[2018-01-10 22:54] LABS: Albumin 3.9 g/dL (3.9-5); Calcium 9.1 mg/dL (8.4-10.2)
--- NOTE | 2018-01-10 23:40 | XRay Report ---
FINAL REPORT PROCEDURE: XR CHEST 1V AP TECHNIQUE: Chest radiograph anteroposterior view. CPT 96656 HISTORY: possible Sepsis COMPARISON: No prior studies are available for comparison. FINDINGS: Heart: Normal. Mediastinum/Vessels: Normal. Lungs/Pleural space: Mild bilateral lower lung atelectasis. No effusion or pneumothorax. Bony thorax: No acute osseous abnormality. Life support devices: None. IMPRESSION: Mild bilateral lower lung atelectasis.
[2018-01-10] MEDS ORDERED: HumuLIN R IV ONE (23:44)
[2018-01-10] MEDS ORDERED: D50W (25GM) Syringe IV ONE (23:44)
[2018-01-10] MEDS ORDERED: PROVENTIL IH ONE (23:44)
[2018-01-10] MEDS ORDERED: SODIUM BICARBONATE IV ONE (23:44)
--- NOTE | 2018-01-10 23:53 | Emergency Department Report ---
ED Chest Pain HPI - General Chief Complaint: Dyspnea/Respdistress Stated Complaint: GENERAL SICKNESS Time Seen by Provider: 01/10/18 22:21 Source: EMS Mode of arrival: Stretcher Limitations: Language Barrier - History of Present Illness Initial Comments: Mr. Verde has hx of ESRD on HD. Last HD session on Monday. Unable to obtain HD on Monday because "machines were not working". He has gradual onset of left sided chest pain, sharp, pleuritic. +fever +cough. +dyspnea MD Complaint: chest pain -: Gradual, days(s) (several days) Onset: during rest Pain Location: left chest Pain Radiation: none Severity: severe Quality: sharp Consistency: constant Improves With: nothing Worsens With: inspiration - Related Data Home Medications Medication Instructions Recorded Confirmed Last Taken B Complex 11/Folic/C/Biot/Zinc 1 each PO DAILY 05/15/17 07/15/17 05/14/17 [Dialyvite with Zinc Tablet] Cinacalcet [Sensipar] 30 mg PO QHS 05/15/17 07/15/17 05/14/17 Previous Rx's Medication Instructions Recorded Last Taken Type Clonidine HCl [Catapres] 0.3 mg PO TID #90 tablet 05/16/17 Unknown Rx Lisinopril [Zestril] 40 mg PO DAILY #30 tablet 05/16/17 Unknown Rx Minoxidil [Loniten] 2.5 mg PO BID #60 tablet 05/16/17 Unknown Rx NIFEdipine XL [Procardia Xl] 60 mg PO Q12HR #60 tablet 05/16/17 Unknown Rx Allergies Allergy/AdvReac Type Severity Reaction Status Date / Time cefazolin Allergy Severe Anaphylaxis Verified 09/18/14 10:19 Heart Score - HEART Score History: Slightly suspicious EKG: Normal Age: < 45 Risk factors: 1-2 risk factors Troponin: 1-3x normal limit HEART Score: 2 ED Review of Systems ROS: Stated complaint: GENERAL SICKNESS Other details as noted in HPI ED Past Medical Hx - Past Medical History Hx Hypertension: Yes Hx CVA: No Hx Heart Attack/AMI: No Hx Congestive Heart Failure: No Hx Diabetes: No Hx Deep Vein Thrombosis: No Hx Pulmonary Embolism: No Hx GERD: No Hx Liver Disease: No Hx Renal Disease: Yes (ESRD, dialysis T, , Mon) Hx Sickle Cell Disease: No Hx Arthritis: No Hx Headaches / Migraines: Yes Hx Seizures: No Hx Psychiatric Treatment: No Hx Asthma: No Hx COPD: No Hx Tuberculosis: No Hx Dementia: No Hx HIV: No Additional medical history: arianne meds. senispar, vit b complex, clonidine, lisinopril, minoxidil, norvask, ran- renal; kaexalate - Surgical History Additional Surgical History: Left upper extremity fistula (no longer uses). Vas -Cath (right subclavicular) - Social History Smoking Status: Current Every Day Smoker Substance Use Type: None - Medications Home Medications: Home Medications Medication Instructions Recorded Confirmed Last Taken Type B Complex 11/Folic/C/Biot/Zinc 1 each PO DAILY 05/15/17 07/15/17 05/14/17 History [Dialyvite with Zinc Tablet] Cinacalcet [Sensipar] 30 mg PO QHS 05/15/17 07/15/17 05/14/17 History Clonidine HCl [Catapres] 0.3 mg PO TID #90 tablet 05/16/17 07/15/17 Unknown Rx Lisinopril [Zestril] 40 mg PO DAILY #30 tablet 05/16/17 07/15/17 Unknown Rx Minoxidil [Loniten] 2.5 mg PO BID #60 tablet 05/16/17 07/15/17 Unknown Rx NIFEdipine XL [Procardia Xl] 60 mg PO Q12HR #60 tablet 05/16/17 07/15/17 Unknown Rx ED Physical Exam - General Limitations: Language Barrier General appearance: alert, in no apparent distress - Head Head exam: Present: atraumatic, normocephalic - Eye Eye exam: Present: normal appearance - ENT ENT exam: Present: normal orophraynx, mucous membranes moist - Neck Neck exam: Present: normal inspection. Absent: meningismus - Respiratory Respiratory exam: Present: normal lung sounds bilaterally. Absent: respiratory distress, wheezes, rales, rhonchi - Cardiovascular Cardiovascular Exam: Present: regular rate, normal rhythm, normal heart sounds. Absent: systolic murmur, diastolic murmur, rubs, gallop - GI/Abdominal GI/Abdominal exam: Present: soft, normal bowel sounds. Absent: distended, tenderness, guarding, rebound - Rectal Rectal exam: Present: deferred - Extremities Exam Extremities exam: Present: normal inspection - Back Exam Back exam: Present: normal inspection - Neurological Exam Neurological exam: Present: alert, oriented X3 - Psychiatric Psychiatric exam: Present: normal affect, normal mood - Skin Skin exam: Present: warm, dry, intact, normal color. Absent: rash ED Course Vital Signs 01/10/18 23:02 Temperature 98.7 F Pulse Rate 76 Blood Pressure 155/102 O2 Sat by Pulse 99 Oximetry ED Medical Decision Making - Lab Data Result diagrams: 01/10/18 22:24 01/10/18 22:24 Laboratory Results - last 24 hr 01/10/18 01/10/18 01/10/18 22:24 22:24 22:24 WBC 11.4 H RBC 3.00 L Hgb 9.3 L Hct 28.0 L MCV 93 MCH 31 MCHC 33 RDW 13.3 Plt Count 180 Lymph % (Auto) 5.6 L [place] % (Auto) 5.5 Eos % (Auto) 6.4 H Baso % (Auto) 0.4 Lymph # 0.6 L [place] # 0.6 Eos # 0.7 H Baso # 0.0 Seg Neutrophils % 82.1 H Seg Neutrophils # 9.4 H PT 13.7 INR 1.00 VBG pH Sodium 135 L Potassium 7.1 H* Chloride 89.9 L Carbon Dioxide 19 L Anion Gap 33 BUN 79 H Creatinine 13.2 H Estimated GFR 4 BUN/Creatinine Ratio 6 Glucose 104 H Lactic Acid Calcium 9.1 Total Bilirubin 0.30 AST 9 ALT 5 L Alkaline Phosphatase 164 H Total Protein 7.0 Albumin 3.9 Albumin/Globulin Ratio 1.3 01/10/18 01/10/18 22:24 22:24 WBC RBC Hgb Hct MCV MCH MCHC RDW Plt Count Lymph % (Auto) [place] % (Auto) Eos % (Auto) Baso % (Auto) Lymph # [place] # Eos # Baso # Seg Neutrophils % Seg Neutrophils # PT INR VBG pH 7.399 Sodium Potassium Chloride Carbon Dioxide Anion Gap BUN Creatinine Estimated GFR BUN/Creatinine Ratio Glucose Lactic Acid 0.60 L Calcium Total Bilirubin AST ALT Alkaline Phosphatase Total Protein Albumin Albumin/Globulin Ratio - EKG Data 01/10/18 23:53 EKG obtained at 2331 Rate 75 normal sinus rhythm normal axis no ST elevation increased amplitude T waves no signs of ischemia - Medical Decision Making chest pain and dyspnea. Atypical for ACS however patient will need further evaluation. Dr. Casillas tile grinder consulted for urgent dialysis. Critical Care Time: Yes Critical care time in (mins) excluding proc time.: 40 Critical care attestation.: If time is entered above; I have spent that time in minutes in the direct care of this critically ill patient, excluding procedure time. ED Disposition Clinical Impression: Hyperkalemia, Chest pain, ESRD (end stage renal disease) on dialysis Disposition: OP ADMIT IP TO THIS HOSP Is pt being admited?: Yes Condition: Stable Time of Disposition: 00:54
[2018-01-10] MEDS ORDERED: NACL 0.9% 100 ML IV PRN (23:56)
--- NOTE | 2018-01-10 23:59 | Event Note ---
received a call from the ER patient admitted, to the hospital medicine with missing dialysis treatment moderate to severe hyperkalemia 7.1 with fluid overload Needing dialysis treatment case was discussed with the ER physician at length Hemodialysis was ordered stat We'll follow up in the morning And discuss with patient about missing treatments and options about not missing treatment to be discussed
[2018-01-11] MEDS ORDERED: SODIUM CHLORIDE FLUSH SYRINGE 10 ML IV PRN (01:14)
[2018-01-11] MEDS ORDERED: PERCOCET 5/325 PO PRN (01:14)
[2018-01-11] MEDS ORDERED: ZOFRAN IV PRN (01:14)
[2018-01-11] MEDS ORDERED: TYLENOL PO PRN (01:14)
--- NOTE | 2018-01-11 01:30 | History and Physical Report ---
History of Present Illness Date of examination: 01/11/18 History of present illness: 34-year-old man with a history of hypertension, end-stage renal disease on dialysis Monday and Monday came to the emergency room missed on Monday because the machines were not working. Complaint of chest pain, left- sided over the last 2 days, sharp, only with cough, no radiation, intensity 3/10 , candidate and for relieving factors. Admission shortness of breath, no nausea vomiting, diaphoresis or palpitation Review Of Systems: Constitutional: no weight loss Ears, eyes, nose, mouth and throat: no nasal congestion, no nasal discharge, no sinus pressure, blurry vision, diplopia Neck: No neck pain or rigidity. Cardiovascular: no orthopnea, palpitations Respiratory: No cough Gastrointestinal: No abdominal pain, hematochezia Genitourinary : no dysuria, frequency , hematuria Musculoskeletal: no muscle ache Integumentary: no rash, no pruritis Neurological: no parathesias, focal weakness Endocrine: no cold or heat intolerance, no polyuria or polydipsia Hematologic/Lymphatic: no easy bruising, no easy bleeding, no gland swelling Allergic/Immunologic: no urticaria, no angioedema. PAST SURGICAL HISTORY: AV fistula, and foot surgery SOCIAL HISTORY: Denies alcohol, tobacco, drugs FAMILY HISTORY: Hypertension Medications and Allergies Allergies Allergy/AdvReac Type Severity Reaction Status Date / Time cefazolin Allergy Severe Anaphylaxis Verified 09/18/14 10:19 Home Medications Medication Instructions Recorded Confirmed Last Taken Type B Complex 11/Folic/C/Biot/Zinc 1 each PO DAILY 05/15/17 07/15/17 05/14/17 History [Dialyvite with Zinc Tablet] Cinacalcet [Sensipar] 30 mg PO QHS 05/15/17 07/15/17 05/14/17 History Clonidine HCl [Catapres] 0.3 mg PO TID #90 tablet 05/16/17 07/15/17 Unknown Rx Lisinopril [Zestril] 40 mg PO DAILY #30 tablet 05/16/17 07/15/17 Unknown Rx Minoxidil [Loniten] 2.5 mg PO BID #60 tablet 05/16/17 07/15/17 Unknown Rx NIFEdipine XL [Procardia Xl] 60 mg PO Q12HR #60 tablet 05/16/17 07/15/17 Unknown Rx Active Meds: Active Medications Acetaminophen (Tylenol) 650 mg PO Q4H PRN PRN Reason: Pain MILD(1-3)/Fever >100.5/[place]LEY Enoxaparin Sodium (Lovenox) 30 mg SUB-Q QDAY DAO Calcium Gluconate 1,000 mg/ (Sodium Chloride) 110 mls @ 660 mls/hr IV ONCE.ED ONE Stop: 01/11/18 23:53 Sodium Chloride (Nacl 0.9%) 100 mls @ 999 mls/hr IV TASHA PRN PRN Reason: Hypotension Ondansetron HCl (Zofran) 4 mg IV Q8H PRN PRN Reason: Nausea And Vomiting Oxycodone/Acetaminophen (Percocet 5/325) 1 tab PO Q6H PRN PRN Reason: Pain, Moderate (4-6) Sodium Chloride (Sodium Chloride Flush Syringe 10 Ml) 10 ml IV BID DAO Sodium Chloride (Sodium Chloride Flush Syringe 10 Ml) 10 ml IV PRN PRN PRN Reason: LINE FLUSH Exam - Constitutional Vitals: Temp Pulse Resp BP Pulse Ox 98.7 F 76 155/102 99 01/10/18 23:02 01/10/18 23:02 01/10/18 23:02 01/10/18 23:02 Results - Labs CBC & Chem 7: 01/10/18 22:24 01/10/18 22:24 Labs: Abnormal lab results 01/10/18 01/10/18 01/10/18 Range/Units 22:24 22:24 22:24 WBC 11.4 H (4.5-11.0) K/mm3 RBC 3.00 L (3.65-5.03) M/mm3 Hgb 9.3 L (11.8-15.2) gm/dl Hct 28.0 L (35.5-45.6) % Lymph % (Auto) 5.6 L (13.4-35.0) % Eos % (Auto) 6.4 H (0.0-4.3) % Lymph # 0.6 L (1.2-5.4) K/mm3 Eos # 0.7 H (0.0-0.4) K/mm3 Seg Neutrophils % 82.1 H (40.0-70.0) % Seg Neutrophils # 9.4 H (1.8-7.7) K/mm3 Sodium 135 L (137-145) mmol/L Potassium 7.1 H* (3.6-5.0) mmol/L Chloride 89.9 L (98-107) mmol/L Carbon Dioxide 19 L (22-30) mmol/L BUN 79 H (9-20) mg/dL Creatinine 13.2 H (0.8-1.5) mg/dL Glucose 104 H (75-100) mg/dL Lactic Acid 0.60 L (0.7-2.0) mmol/L ALT 5 L (7-56) units/L Alkaline Phosphatase 164 H (35-129) units/L Troponin T (0.00-0.029) ng/mL 01/11/18 Range/Units 00:08 WBC (4.5-11.0) K/mm3 RBC (3.65-5.03) M/mm3 Hgb (11.8-15.2) gm/dl Hct (35.5-45.6) % Lymph % (Auto) (13.4-35.0) % Eos % (Auto) (0.0-4.3) % Lymph # (1.2-5.4) K/mm3 Eos # (0.0-0.4) K/mm3 Seg Neutrophils % (40.0-70.0) % Seg Neutrophils # (1.8-7.7) K/mm3 Sodium (137-145) mmol/L Potassium (3.6-5.0) mmol/L Chloride (98-107) mmol/L Carbon Dioxide (22-30) mmol/L BUN (9-20) mg/dL Creatinine (0.8-1.5) mg/dL Glucose (75-100) mg/dL Lactic Acid (0.7-2.0) mmol/L ALT (7-56) units/L Alkaline Phosphatase (35-129) units/L Troponin T 0.071 H (0.00-0.029) ng/mL Assessment and Plan Assessment Acute on chronic renal failure Severe hyperkalemia Chest pain Hypertension Plan Consult renal for stat dialysis Check csrdiac enzymes, d-dimer Continue appropriate outpatient medications Start dvt prophalaxis
[2018-01-11 01:59] LABS: Creatine Kinase MB 1.8 ng/mL (0.0-4.0)
[2018-01-11 05:40] LABS: Chol/HDL Ratio 2.86 %
[2018-01-11 08:25] LABS: Creatine Kinase MB 1.6 ng/mL (0.0-4.0)
--- NOTE | 2018-01-11 09:01 | Consultation ---
History of Present Illness - History of Present Illness Thank you for the consultation patient was evaluated today. Source of information; patient himself as well as old records were also reviewed History of presenting illness; Patient is a 37-year-old male who has been admitted here after missing dialysis treatments, and patient was noted to have an extremely elevated potassium of 7.8. Patient also does complain of some generalized swelling ache and pain. Upon arrival he was noted to have a hemoglobin of 9.3 potassium was 7.1 bicarbonate 19. Primary reason for ER visit was left-sided chest pain which was mostly present upon taking deep breath and sometimes positional. Patient currently does have a functioning fistula in his forearm which has been working well no history of any cough cold congestion expectoration of any phlegm Otherwise feeling well is currently postdialysis and feeling much better patient is normally on dialysis Monday and Monday schedule Past medical history significant for End-stage renal disease currently on maintenance hemodialysis last dialysis treatment was on Monday Anemia and end-stage renal disease Secondary hyperparathyroidism Poor compliance Current allergies: Ancef Home medication: Medication reviewed Social history: Denies any history of alcohol drug tobacco use Family history: Noncontributory for renal related disorder Review of system, generalized fatigue ache and pain missing dialysis fluid overload left-sided chest pain which is currently much better post dialysis treatment Labs and x-rays: Were reviewed from the current chart Physical examination General: No acute distress HEENT: Oral mucosa moist no pharyngeal erythema no pallor or icterus , patient does have uremic order Neck: Supple no evidence of any thyromegaly trachea midline no JVD Chest: Clear to auscultation no crackles are also wheezes anteriorly Heart: Regular rate and rhythm S1-S2 heard no S3-S4 Abdomen: Soft nontender no renal bruit no CVA tenderness no suprapubic fullness no organomegaly Extremity: Minimal edema dry skin no peripheral cyanosis pulses palpable, fistula has good thrill and bruit Neurological: Alert awake follows command grossly nonfocal examination Back: Nontender thoracolumbar spine Musculoskeletal: No joint effusion noted Skin: No petechial rash/noted Assessment and plan end-stage renal disease: Patient is currently status post hemodialysis will require another dialysis treatment tomorrow Anemia and advanced degenerative disease: To monitor and follow Hyperkalemia moderately severe discussed counseled and educated Missing dialysis treatment patient was advised not to do so in future but that doesn't social media intern to see if other dialysis facilities could accommodate his request Poor compliance: Counseled and educated Secondary hyperparathyroidism: Counseled and educated about phosphorus and PTH level Will need hemodialysis treatment tomorrow morning fluid overload appears to be somewhat better After dialysis tomorrow morning he can be discharged to follow-up in office in a week or 2 Nature and severity of renal-related issues were discussed with patient, all questions were answered and simple Welsh Patient does have good understanding about renal-related issues. Counseled and educated to get further education from [employer] and related links, We'll continue to follow and make recommendations from renal standpoint. If you have any questions please feel free to contact me at [phone] Thank you for the consultation. Medications and Allergies Allergies Allergy/AdvReac Type Severity Reaction Status Date / Time cefazolin Allergy Severe Anaphylaxis Verified 09/18/14 10:19 Home Medications Medication Instructions Recorded Confirmed Last Taken Type B Complex 11/Folic/C/Biot/Zinc 1 each PO DAILY 05/15/17 07/15/17 05/14/17 History [Dialyvite with Zinc Tablet] Cinacalcet [Sensipar] 30 mg PO QHS 05/15/17 07/15/17 05/14/17 History Clonidine HCl [Catapres] 0.3 mg PO TID #90 tablet 05/16/17 07/15/17 Unknown Rx Lisinopril [Zestril] 40 mg PO DAILY #30 tablet 05/16/17 07/15/17 Unknown Rx Minoxidil [Loniten] 2.5 mg PO BID #60 tablet 05/16/17 07/15/17 Unknown Rx NIFEdipine XL [Procardia Xl] 60 mg PO Q12HR #60 tablet 05/16/17 07/15/17 Unknown Rx Active Meds: Active Medications Acetaminophen (Tylenol) 650 mg PO Q4H PRN PRN Reason: Pain MILD(1-3)/Fever >100.5/[place] Cinacalcet (Sensipar) 30 mg PO QHS DAO Enoxaparin Sodium (Lovenox) 30 mg SUB-Q QDAY DAO Calcium Gluconate 1,000 mg/ (Sodium Chloride) 110 mls @ 660 mls/hr IV ONCE.ED ONE Stop: 01/11/18 23:53 Sodium Chloride (Nacl 0.9%) 100 mls @ 999 mls/hr IV TASHA PRN PRN Reason: Hypotension Lisinopril (Zestril) 40 mg PO DAILY [facility] Minoxidil (Loniten) 2.5 mg PO BID [facility] Multivit/Ca Carb/B Cmplx/FA/Prenat (Renal Caps) 1 cap PO DAILY [facility] Nifedipine (Procardia Xl) 60 mg PO Q12HR DAO Ondansetron HCl (Zofran) 4 mg IV Q8H PRN PRN Reason: Nausea And Vomiting Oxycodone/Acetaminophen (Percocet 5/325) 1 tab PO Q6H PRN PRN Reason: Pain, Moderate (4-6) Sodium Chloride (Sodium Chloride Flush Syringe 10 Ml) 10 ml IV BID DAO Sodium Chloride (Sodium Chloride Flush Syringe 10 Ml) 10 ml IV PRN PRN PRN Reason: LINE FLUSH Exam - Vital Signs Vital signs: Vital Signs Temp Pulse BP Pulse Ox 98.7 F 76 155/102 99 01/10/18 23:02 01/10/18 23:02 01/10/18 23:02 01/10/18 23:02 Results - Lab Results 01/10/18 22:24 01/11/18 15:40 Most recent lab results Calcium 9.1 mg/dL (8.4-10.2) 01/10/18 22:24
[2018-01-11] MEDS: LOVENOX SUB-Q SCH (10:59)
[2018-01-11] MEDS: ZESTRIL PO SCH (11:00)
[2018-01-11] MEDS: LONITEN PO SCH ×2 (11:01→22:16)
[2018-01-11] MEDS: Renal Caps PO SCH (11:01)
[2018-01-11] MEDS: PROCARDIA XL PO SCH ×2 (11:01→22:16)
[2018-01-11] MEDS: SODIUM CHLORIDE FLUSH SYRINGE 10 ML IV SCH ×2 (11:04→23:20)
--- NOTE | 2018-01-11 15:47 | Progress Note ---
<WHIT RICO - Last Filed: 01/11/18 15:08> Assessment and Plan Assessment and plan: 34-year-old man with a history of hypertension, end-stage renal disease on dialysis Monday and Monday came to the emergency room missed on Monday because the machines were not working. Complaint of chest pain, left- sided over the last 2 days, sharp, only with cough, no radiation, intensity 3/10 , candidate and for relieving factors. Admission shortness of breath, no nausea vomiting, diaphoresis or palpitation Acute on chronic renal failure S/P HD yesterday, nephrology following Severe hyperkalemia S/P HD, recheck BMP Chest pain Elevated CE, likely chronic and nonspecific in setting of ESRD Cardiology consulted Hypertension Continue antihypertensives Dvt prophalaxis [facility] Hospital[facility] Physical - Constitutional Vitals: Temp Pulse Resp BP Pulse Ox 99.5 F 96 H 20 140/90 98 01/11/18 06:32 01/11/18 06:32 01/11/18 06:32 01/11/18 11:00 01/11/18 06:32 Results - Labs CBC & Chem 7: 01/10/18 22:24 01/10/18 22:24 Labs: Laboratory Last Values WBC 11.4 K/mm3 (4.5-11.0) H 01/10/18 22:24 RBC 3.00 M/mm3 (3.65-5.03) L 01/10/18 22:24 Hgb 9.3 gm/dl (11.8-15.2) L 01/10/18 22:24 Hct 28.0 % (35.5-45.6) L 01/10/18 22:24 MCV 93 fl (84-94) 01/10/18 22:24 MCH 31 pg (28-32) 01/10/18 22:24 MCHC 33 % (32-34) 01/10/18 22:24 RDW 13.3 % (13.2-15.2) 01/10/18 22:24 Plt Count 180 K/mm3 (140-440) 01/10/18 22:24 Lymph % (Auto) 5.6 % (13.4-35.0) L 01/10/18 22:24 [place] % (Auto) 5.5 % (0.0-7.3) 01/10/18 22:24 Eos % (Auto) 6.4 % (0.0-4.3) H 01/10/18 22:24 Baso % (Auto) 0.4 % (0.0-1.8) 01/10/18 22:24 Lymph # 0.6 K/mm3 (1.2-5.4) L 01/10/18 22:24 [place] # 0.6 K/mm3 (0.0-0.8) 01/10/18 22:24 Eos # 0.7 K/mm3 (0.0-0.4) H 01/10/18 22:24 Baso # 0.0 K/mm3 (0.0-0.1) 01/10/18 22:24 Seg Neutrophils % 82.1 % (40.0-70.0) H 01/10/18 22:24 Seg Neutrophils # 9.4 K/mm3 (1.8-7.7) H 01/10/18 22:24 PT 13.7 Sec. (12.2-14.9) 01/10/18 22:24 INR 1.00 (0.87-1.13) 01/10/18 22:24 D-Dimer 912.44 ng/mlDDU (0-234) H 01/11/18 01:22 VBG pH 7.399 (7.320-7.420) 01/10/18 22:24 Sodium 135 mmol/L (137-145) L 01/10/18 22:24 Potassium 7.1 mmol/L (3.6-5.0) H* 01/10/18 22:24 Chloride 89.9 mmol/L (98-107) L 01/10/18 22:24 Carbon Dioxide 19 mmol/L (22-30) L 01/10/18 22:24 Anion Gap 33 mmol/L 01/10/18 22:24 BUN 79 mg/dL (9-20) H 01/10/18 22:24 Creatinine 13.2 mg/dL (0.8-1.5) H 01/10/18 22:24 Estimated GFR 4 ml/min 01/10/18 22:24 BUN/Creatinine Ratio 6 % 01/10/18 22:24 Glucose 104 mg/dL (75-100) H 01/10/18 22:24 Lactic Acid 0.60 mmol/L (0.7-2.0) L 01/11/18 01:22 Calcium 9.1 mg/dL (8.4-10.2) 01/10/18 22:24 Total Bilirubin 0.30 mg/dL (0.1-1.2) 01/10/18 22:24 AST 9 units/L (5-40) 01/10/18 22:24 ALT 5 units/L (7-56) L 01/10/18 22:24 Alkaline Phosphatase 164 units/L (35-129) H 01/10/18 22:24 Total Creatine Kinase 109 units/L (55-170) 01/11/18 07:47 CK-MB (CK-2) 1.6 ng/mL (0.0-4.0) 01/11/18 07:47 CK-MB (CK-2) Rel Index 1.4 (0-4) 01/11/18 07:47 Troponin T 0.093 ng/mL (0.00-0.029) H 01/11/18 07:47 Total Protein 7.0 g/dL (6.3-8.2) 01/10/18 22:24 Albumin 3.9 g/dL (3.9-5) 01/10/18 22:24 Albumin/Globulin Ratio 1.3 % 01/10/18 22:24 Triglycerides 76 mg/dL (2-149) 01/11/18 00:08 Cholesterol 146 mg/dL (50-199) 01/11/18 00:08 LDL Cholesterol Direct 81 mg/dL (50-130) 01/11/18 00:08 HDL Cholesterol 51 mg/dL (40-59) 01/11/18 00:08 Cholesterol/HDL Ratio 2.86 % 01/11/18 00:08 <ROBERT SARGENT - Last Filed: 01/14/18 15:29> Assessment and Plan Assessment and plan: I saw and evaluated the patient. I agree with the findings and the plan of care as documented in the PA's~note, with the following corrections and additions. History Interval history: Patient seen and examined, in no acute distress Hospitalist Physical - Physical exam Narrative exam: General: No acute distress, resting comforatble HEENT: Oral mucosa moist no pharyngeal erythema no pallor or icterus Neck: Supple no evidence of any thyromegaly trachea midline no JVD Chest: Clear to auscultation no crackles, wheezing or rhonchi Heart: Regular rate and rhythm S1-S2 heard no S3-S4 Abdomen: Soft nontender no renal bruit no CVA tenderness no suprapubic fullness no organomegaly Extremity: Minimal edema dry skin no peripheral cyanosis pulses palpable, fistula has good thrill and bruit Neurological: Alert awake follows command grossly nonfocal examination Back: Nontender thoracolumbar spine Musculoskeletal: No joint effusion noted Skin: No petechial rash/noted - Constitutional Vitals: Temp Pulse Resp BP Pulse Ox 98.2 F 91 H 19 136/93 95 01/12/18 07:57 01/12/18 07:57 01/12/18 07:57 01/12/18 07:57 01/12/18 07:57 Results - Labs CBC & Chem 7: 01/12/18 04:36 01/12/18 04:36 Labs: Laboratory Last Values WBC 9.7 K/mm3 (4.5-11.0) 01/12/18 04:36 RBC 2.85 M/mm3 (3.65-5.03) L 01/12/18 04:36 Hgb 9.0 gm/dl (11.8-15.2) L 01/12/18 04:36 Hct 26.0 % (35.5-45.6) L 01/12/18 04:36 MCV 91 fl (84-94) 01/12/18 04:36 MCH 32 pg (28-32) 01/12/18 04:36 MCHC 35 % (32-34) H 01/12/18 04:36 RDW 13.0 % (13.2-15.2) L 01/12/18 04:36 Plt Count 149 K/mm3 (140-440) 01/12/18 04:36 Lymph % (Auto) 7.6 % (13.4-35.0) L 01/12/18 04:36 Stephens % (Auto) 8.5 % (0.0-7.3) H 01/12/18 04:36 Eos % (Auto) 3.8 % (0.0-4.3) 01/12/18 04:36 Baso % (Auto) 0.7 % (0.0-1.8) 01/12/18 04:36 Lymph # 0.7 K/mm3 (1.2-5.4) L 01/12/18 04:36 [place] # 0.8 K/mm3 (0.0-0.8) 01/12/18 04:36 Eos # 0.4 K/mm3 (0.0-0.4) 01/12/18 04:36 Baso # 0.1 K/mm3 (0.0-0.1) 01/12/18 04:36 Seg Neutrophils % 79.4 % (40.0-70.0) H 01/12/18 04:36 Seg Neutrophils # 7.7 K/mm3 (1.8-7.7) 01/12/18 04:36 PT 13.7 Sec. (12.2-14.9) 01/10/18 22:24 INR 1.00 (0.87-1.13) 01/10/18 22:24 D-Dimer 912.44 ng/mlDDU (0-234) H 01/11/18 01:22 VBG pH 7.399 (7.320-7.420) 01/10/18 22:24 Sodium 137 mmol/L (137-145) 01/12/18 04:36 Potassium 6.1 mmol/L (3.6-5.0) H* D 01/12/18 04:36 Chloride 92.6 mmol/L (98-107) L 01/12/18 04:36 Carbon Dioxide 21 mmol/L (22-30) L 01/12/18 04:36 Anion Gap 30 mmol/L 01/12/18 04:36 BUN 56 mg/dL (9-20) H 01/12/18 04:36 Creatinine 11.4 mg/dL (0.8-1.5) H 01/12/18 04:36 Estimated GFR 5 ml/min 01/12/18 04:36 BUN/Creatinine Ratio 5 % 01/12/18 04:36 Glucose 108 mg/dL (75-100) H 01/12/18 04:36 Lactic Acid 0.60 mmol/L (0.7-2.0) L 01/11/18 01:22 Calcium 8.6 mg/dL (8.4-10.2) 01/12/18 04:36 Total Bilirubin 0.30 mg/dL (0.1-1.2) 01/10/18 22:24 AST 9 units/L (5-40) 01/10/18 22:24 ALT 5 units/L (7-56) L 01/10/18 22:24 Alkaline Phosphatase 164 units/L (35-129) H 01/10/18 22:24 Total Creatine Kinase 109 units/L (55-170) 01/11/18 07:47 CK-MB (CK-2) 1.6 ng/mL (0.0-4.0) 01/11/18 07:47 CK-MB (CK-2) Rel Index 1.4 (0-4) 01/11/18 07:47 Troponin T 0.093 ng/mL (0.00-0.029) H 01/11/18 07:47 Total Protein 7.0 g/dL (6.3-8.2) 01/10/18 22:24 Albumin 3.9 g/dL (3.9-5) 01/10/18 22:24 Albumin/Globulin Ratio 1.3 % 01/10/18 22:24 Triglycerides 76 mg/dL (2-149) 01/11/18 00:08 Cholesterol 146 mg/dL (50-199) 01/11/18 00:08 LDL Cholesterol Direct 81 mg/dL (50-130) 01/11/18 00:08 HDL Cholesterol 51 mg/dL (40-59) 01/11/18 00:08 Cholesterol/HDL Ratio 2.86 % 01/11/18 00:08
[2018-01-11 16:39] LABS: Calcium 9.1 mg/dL (8.4-10.2)
[2018-01-11] MEDS ORDERED: NON-FORMULARY (Clonidine Hcl [Catapres] 0.3 MG) PO SCH (20:00)
[2018-01-11] MEDS ORDERED: SENSIPAR PO SCH (22:00)
[2018-01-11] MEDS: CATAPRES PO SCH ×2 (22:16→22:17)
[2018-01-11] MEDS ORDERED: CALCIUM GLUCONATE 1,000 MG in NACL 0.9% 100 ML IV ONE (23:44)
[2018-01-12] MEDS ORDERED: VANCOMYCIN/NS 1 GM/250 ML 1 GM/250 ML BAG IV SCH (01:00)
[2018-01-12] MEDS ORDERED: VANCOMYCIN/0.45 NS 1 GM/250 ML 1 GM/250 ML BAG IV ONE (01:00)
[2018-01-12 05:52] LABS: Basophils # (Auto) 0.1 K/mm3 (0.0-0.1); Basophils % (Auto) 0.7 % (0.0-1.8); Eosinophils # (Auto) 0.4 K/mm3 (0.0-0.4); Eosinophils % (Auto) 3.8 % (0.0-4.3); Lymphocytes # (Auto) 0.7 K/mm3 (1.2-5.4); Lymphocytes % (Auto) 7.6 % (13.4-35.0); Mean Corpuscular HGB Conc 35 % (32-34); Mean Corpuscular Hemoglobin 32 pg (28-32); Mean Corpuscular Volume 91 fl (84-94); Monocytes # (Auto) 0.8 K/mm3 (0.0-0.8); Monocytes % (Auto) 8.5 % (0.0-7.3); Platelet Count 149 K/mm3 (140-440); Red Blood Count 2.85 M/mm3 (3.65-5.03)
[2018-01-12 06:15] LABS: Calcium 8.6 mg/dL (8.4-10.2)
[2018-01-12] MEDS: CATAPRES PO SCH ×4 (09:42→14:25)
[2018-01-12] MEDS: LOVENOX SUB-Q SCH (09:42)
[2018-01-12] MEDS: Renal Caps PO SCH (09:46)
[2018-01-12] MEDS: PROCARDIA XL PO SCH (09:46)
[2018-01-12] MEDS: LONITEN PO SCH (09:46)
[2018-01-12] MEDS: ZESTRIL PO SCH (09:46)
--- NOTE | 2018-01-12 11:18 | Discharge Summary ---
Providers - Providers Date of Admission: 01/11/18 00:59 Attending physician: ROBERT SARGENT MD 01/10/18 23:54 Consult to Physician [CONS] Stat Consulting Provider: DELICIA CASILLAS Reason For Exam: dialysis Place consult to:: Dr. Selene Casillas Notified:: Answering Service Phone number called:: [phone] Was contact made?: Yes If yes, spoke with:: Dr. Selene Casillas Time called:: 23:51 Comment:: Dr. Rell Perez (er dr) spoke with Dr. Selene Casillas Primary care physician: ROHAN SWAN Hospitalization Reason for admission: missed dialysis Condition: Stable Hospital course: 34-year-old man with a history of hypertension, end-stage renal disease on dialysis Monday and Monday came to the emergency room missed on Monday because the machines were not working. Complaint of chest pain, left- sided over the last 2 days, sharp, only with cough, no radiation, intensity 3/10 , candidate and for relieving factors. Admission shortness of breath, no nausea vomiting, diaphoresis or palpitation. ON Admission patient was noted to have potassium of 7.1 and hemoglobin of 9.3. Patient currently does have a functioning fistula in his forearm which has been working well no history of any cough cold congestion expectoration of any phlegm, patient is normally on dialysis Monday and Monday schedule and although unfunded he gets his treatment with [facility]. The patient was seen by screw machine set up operator tool and given counselling not to do so in future but that doesn't director social to see if other dialysis facilities could accommodate his request Discharge diagnosis Severe hyperkalemia Chest pain-muscluloskeletal, likely chronic and nonspecific in setting of ESRD Hypertension End-stage renal disease currently on maintenance hemodialysis last dialysis treatment was on Monday Anemia and end-stage renal disease Secondary hyperparathyroidism Poor compliance Disposition: DC-01 TO HOME OR SELFCARE Time spent for discharge: 35 mins Core Measure Documentation - Palliative Care Palliative Care/ Comfort Measures: Not Applicable - Core Measures Any of the following diagnoses?: none - VTE Discharge Requirements Deep Vein Thrombosis/Pulmonary Embolism Present on Admission: No Exam - Physical Exam Narrative exam: General: No acute distress, resting comforatble HEENT: Oral mucosa moist no pharyngeal erythema no pallor or icterus Neck: Supple no evidence of any thyromegaly trachea midline no JVD Chest: Clear to auscultation no crackles, wheezing or rhonchi Heart: Regular rate and rhythm S1-S2 heard no S3-S4 Abdomen: Soft nontender no renal bruit no CVA tenderness no suprapubic fullness no organomegaly Extremity: Minimal edema dry skin no peripheral cyanosis pulses palpable, fistula has good thrill and bruit Neurological: Alert awake follows command grossly nonfocal examination Back: Nontender thoracolumbar spine Musculoskeletal: No joint effusion noted Skin: No petechial rash/noted - Constitutional Vitals: Temp Pulse Resp BP Pulse Ox 98.2 F 91 H 19 136/93 95 01/12/18 07:57 01/12/18 07:57 01/12/18 07:57 01/12/18 07:57 01/12/18 07:57 Plan Activity: advance as tolerated, fall precautions Diet: low fat, renal Special Instructions: record daily weights, record daily BP diary, record blood sugar diary Follow up with: ROHAN SWAN MD [Primary Care Provider] - 7 Days DELICIA CASILLAS MD [Staff Physician] - 7 Days Prescriptions: Cinacalcet [Sensipar] 30 mg PO QHS #30 tablet B Complex 11/Folic/C/Biot/Zinc [Dialyvite with Zinc Tablet] 1 each PO DAILY #30 tablet Clonidine HCl [Catapres] 0.3 mg PO TID #90 tablet Lisinopril [Zestril] 40 mg PO DAILY #30 tablet Minoxidil [Loniten] 2.5 mg PO BID #60 tablet NIFEdipine XL [Procardia Xl] 60 mg PO Q12HR #60 tablet
--- NOTE | 2018-01-12 11:18 | Progress Note ---
Hospitalist Physical - Constitutional Vitals: Temp Pulse Resp BP Pulse Ox 98.2 F 91 H 19 136/93 95 01/12/18 07:57 01/12/18 07:57 01/12/18 07:57 01/12/18 07:57 01/12/18 07:57 Results - Labs CBC & Chem 7: 01/12/18 04:36 01/12/18 04:36 Labs: Laboratory Last Values WBC 9.7 K/mm3 (4.5-11.0) 01/12/18 04:36 RBC 2.85 M/mm3 (3.65-5.03) L 01/12/18 04:36 Hgb 9.0 gm/dl (11.8-15.2) L 01/12/18 04:36 Hct 26.0 % (35.5-45.6) L 01/12/18 04:36 MCV 91 fl (84-94) 01/12/18 04:36 MCH 32 pg (28-32) 01/12/18 04:36 MCHC 35 % (32-34) H 01/12/18 04:36 RDW 13.0 % (13.2-15.2) L 01/12/18 04:36 Plt Count 149 K/mm3 (140-440) 01/12/18 04:36 Lymph % (Auto) 7.6 % (13.4-35.0) L 01/12/18 04:36 [place] % (Auto) 8.5 % (0.0-7.3) H 01/12/18 04:36 Eos % (Auto) 3.8 % (0.0-4.3) 01/12/18 04:36 Baso % (Auto) 0.7 % (0.0-1.8) 01/12/18 04:36 Lymph # 0.7 K/mm3 (1.2-5.4) L 01/12/18 04:36 [place] # 0.8 K/mm3 (0.0-0.8) 01/12/18 04:36 Eos # 0.4 K/mm3 (0.0-0.4) 01/12/18 04:36 Baso # 0.1 K/mm3 (0.0-0.1) 01/12/18 04:36 Seg Neutrophils % 79.4 % (40.0-70.0) H 01/12/18 04:36 Seg Neutrophils # 7.7 K/mm3 (1.8-7.7) 01/12/18 04:36 PT 13.7 Sec. (12.2-14.9) 01/10/18 22:24 INR 1.00 (0.87-1.13) 01/10/18 22:24 D-Dimer 912.44 ng/mlDDU (0-234) H 01/11/18 01:22 VBG pH 7.399 (7.320-7.420) 01/10/18 22:24 Sodium 137 mmol/L (137-145) 01/12/18 04:36 Potassium 6.1 mmol/L (3.6-5.0) H* D 01/12/18 04:36 Chloride 92.6 mmol/L (98-107) L 01/12/18 04:36 Carbon Dioxide 21 mmol/L (22-30) L 01/12/18 04:36 Anion Gap 30 mmol/L 01/12/18 04:36 BUN 56 mg/dL (9-20) H 01/12/18 04:36 Creatinine 11.4 mg/dL (0.8-1.5) H 01/12/18 04:36 Estimated GFR 5 ml/min 01/12/18 04:36 BUN/Creatinine Ratio 5 % 01/12/18 04:36 Glucose 108 mg/dL (75-100) H 01/12/18 04:36 Lactic Acid 0.60 mmol/L (0.7-2.0) L 01/11/18 01:22 Calcium 8.6 mg/dL (8.4-10.2) 01/12/18 04:36 Total Bilirubin 0.30 mg/dL (0.1-1.2) 01/10/18 22:24 AST 9 units/L (5-40) 01/10/18 22:24 ALT 5 units/L (7-56) L 01/10/18 22:24 Alkaline Phosphatase 164 units/L (35-129) H 01/10/18 22:24 Total Creatine Kinase 109 units/L (55-170) 01/11/18 07:47 CK-MB (CK-2) 1.6 ng/mL (0.0-4.0) 01/11/18 07:47 CK-MB (CK-2) Rel Index 1.4 (0-4) 01/11/18 07:47 Troponin T 0.093 ng/mL (0.00-0.029) H 01/11/18 07:47 Total Protein 7.0 g/dL (6.3-8.2) 01/10/18 22:24 Albumin 3.9 g/dL (3.9-5) 01/10/18 22:24 Albumin/Globulin Ratio 1.3 % 01/10/18 22:24 Triglycerides 76 mg/dL (2-149) 01/11/18 00:08 Cholesterol 146 mg/dL (50-199) 01/11/18 00:08 LDL Cholesterol Direct 81 mg/dL (50-130) 01/11/18 00:08 HDL Cholesterol 51 mg/dL (40-59) 01/11/18 00:08 Cholesterol/HDL Ratio 2.86 % 01/11/18 00:08
[2018-01-12] MEDS: SODIUM CHLORIDE FLUSH SYRINGE 10 ML IV SCH (11:20)
--- NOTE | 2018-01-12 12:49 | Progress Note ---
Assessment and Plan Impression: * ESRD * Hyperkalemia * HTN * noncompliance with hd Plan: * HD today * uf as tolerated with hd * renal diet * strict i/os * stress compliance with medical therapy * ok to dc home after hd today Subjective Date of service: 01/12/18 Principal diagnosis: hyperkalemia Interval history: resting well in bed today Objective - Exam Narrative Exam: General: No acute distress HEENT: Oral mucosa moist no pharyngeal erythema no pallor or icterus , patient does have uremic order Neck: Supple no evidence of any thyromegaly trachea midline no JVD Chest: Clear to auscultation no crackles are also wheezes anteriorly Heart: Regular rate and rhythm S1-S2 heard no S3-S4 Abdomen: Soft nontender no renal bruit no CVA tenderness no suprapubic fullness no organomegaly Extremity: Minimal edema dry skin no peripheral cyanosis pulses palpable, fistula has good thrill and bruit Neurological: Alert awake follows command grossly nonfocal examination Back: Nontender thoracolumbar spine Musculoskeletal: No joint effusion noted Skin: No petechial rash/noted - Vital Signs Vital signs: Vital Signs - 12hr 01/12/18 01/12/18 01/12/18 04:41 07:57 11:09 Temperature 99.0 F 98.2 F 98.1 F Pulse Rate 90 91 H 92 H Respiratory 20 19 19 Rate Blood Pressure 125/83 137/89 Blood Pressure 136/93 [Right] O2 Sat by Pulse 91 95 93 Oximetry - Lab 01/12/18 04:36 01/12/18 04:36 Most recent lab results Calcium 8.6 mg/dL (8.4-10.2) 01/12/18 04:36
[2018-01-12 17:03] VITALS: BP 173/94
[2018-01-12] MEDS ORDERED: NACL 0.9 (PRIMING MACHINE ONLY DIALYSIS) MC ONE (18:53)
== END 2018-01-12 20:10 | disposition home or self-care (01) | DRG 682 ==
LOC: ED 21:47 → 4A 01-11 00:59
PROVIDERS: ADMIT Internal Medicine; ATTEND Internal Medicine
PROC: 5A1D70Z Performance of Urinary Filtration, Intermittent, Less than 6 Hours Per Day (ICD-10-PCS; principal; 2018-01-11)
PROC: 5A1D70Z Performance of Urinary Filtration, Intermittent, Less than 6 Hours Per Day (ICD-10-PCS; 2018-01-12)
DX: I12.0 Hypertensive chronic kidney disease with stage 5 chronic kidney disease or end stage renal disease (principal); N18.6 End stage renal disease; N17.9 Acute kidney failure, unspecified; N25.81 Secondary hyperparathyroidism of renal origin; E87.5 Hyperkalemia; D64.9 Anemia, unspecified; G43.909 Migraine, unspecified, not intractable, without status migrainosus; Z82.49 Family history of ischemic heart disease and other diseases of the circulatory system; Z91.15 Patient's noncompliance with renal dialysis
CPT/HCPCS: 36415; 71045; 80048; 80053; 80061; 82140; 82550; 82553; 82805; 84484; 85025; 85379; 85610; 87040; 93005; 93010; 94640; 96374; 99291; J0610; J1650; J1815; J3370; J7030

== ENCOUNTER 2019-03-12 05:51 | Inpatient (IN) | payer SELFPAY ==
--- NOTE | 2019-03-12 06:38 | Emergency Department Report ---
ED Medical Clearance HPI - General Chief complaint: Recheck/Abnormal Lab/Rx Stated complaint: HIGH POTASSIUM/MISSED DIALYSIS Source: patient, EMS (ems notes not available at time of chart dictation), RN notes reviewed, old records reviewed Mode of arrival: Stretcher Limitations: No Limitations - History of Present Illness Initial comments: This is a 38-year-old gentleman. I have evaluated this patient in the past. His radiation control health physicist is Dr. Marie He is sent to the emergency room for complaint of painless hyperkalemia. Patient reports his last dialysis was this past Monday. One week ago. He denies physical pain at this time. He endorses generalized fatigue and muscle cramping. He denies headache, neck pain, chest pain, abdominal pain, shortness of breath, vomiting. MD Complaint: medical clearance request, other Reason for Medical Clearance: laboratory abnormality Alledged Intoxication: No Compliant with Home Medications: Yes Traumatic Symptoms: denies traumatic injury Home medications: Previous Rx's Medication Instructions Recorded Last Taken Type B Complex 11/Folic/C/Biot/Zinc 1 each PO DAILY #30 tablet 01/12/18 Unknown Rx [Dialyvite with Zinc Tablet] Acetaminophen [Acetaminophen TAB] 650 mg PO Q4H PRN #15 tablet 09/27/18 Unknown Rx Cinacalcet [Sensipar] 30 mg PO QHS #30 tablet 09/27/18 Unknown Rx Clonidine HCl [Catapres] 0.3 mg PO TID #90 tablet 09/27/18 Unknown Rx NIFEdipine XL [Procardia Xl] 60 mg PO Q12HR #60 tablet 09/27/18 Unknown Rx cloNIDine [Catapres] 0.1 mg PO TID #90 tablet 09/27/18 Unknown Rx hydrALAZINE [Apresoline TAB] 100 mg PO Q8HR 30 Days tablet 09/27/18 Unknown Rx Benzonatate [Tessalon Perles] 100 mg PO Q6H PRN #14 capsule 10/18/18 Unknown Rx DOXYCYCLINE Hyclate [Vibramycin 100 mg PO BID #7 capsule 10/18/18 Unknown Rx CAP] ISOSORBIDE MONOnitrate [Imdur ER] 60 mg PO DAILY #60 tablet 10/18/18 Unknown Rx Minoxidil [Loniten] 5 mg PO BID #60 tablet 10/18/18 Unknown Rx Allergies/Adverse reactions: Allergies Allergy/AdvReac Type Severity Reaction Status Date / Time cefazolin Allergy Severe Anaphylaxis Verified 09/19/18 02:16 ED Review of Systems ROS: Stated complaint: HIGH POTASSIUM/MISSED DIALYSIS Other details as noted in HPI Constitutional: malaise. denies: fever Eyes: denies: eye discharge ENT: denies: epistaxis Respiratory: denies: cough Cardiovascular: denies: chest pain Gastrointestinal: denies: abdominal pain Musculoskeletal: arthralgia Skin: denies: lesions Neurological: denies: weakness Psychiatric: denies: anxiety ED Past Medical Hx - Past Medical History Hx Hypertension: Yes Hx CVA: No Hx Heart Attack/AMI: No Hx Congestive Heart Failure: No (BNP >68398) Hx Diabetes: No Hx Deep Vein Thrombosis: No Hx Pulmonary Embolism: No (Pulmonary Edema) Hx GERD: No Hx Liver Disease: No Hx Renal Disease: Yes (ESRD, dialysis T, , Mon) Hx Sickle Cell Disease: No Hx Arthritis: No Hx Headaches / Migraines: Yes Hx Seizures: No Hx Psychiatric Treatment: No Hx Asthma: No Hx COPD: No Hx Tuberculosis: No Hx Dementia: No Hx HIV: No Additional medical history: arianne meds. senispar, vit b complex, clonidine, lisinopril, minoxidil, norvask, ran- renal; kaexalate - Surgical History Hx Coronary Stent: No Hx Pacemaker: No Hx Internal Defibrillator: No Additional Surgical History: Left upper extremity fistula (no longer uses). Vas-Cath (right subclavicular) - Social History Smoking Status: Current Every Day Smoker Substance Use Type: None - Medications Home Medications: Home Medications Medication Instructions Recorded Confirmed Last Taken Type B Complex 11/Folic/C/Biot/Zinc 1 each PO DAILY #30 tablet 01/12/18 10/18/18 Unknown Rx [Dialyvite with Zinc Tablet] Acetaminophen [Acetaminophen TAB] 650 mg PO Q4H PRN #15 tablet 09/27/18 10/18/18 Unknown Rx Cinacalcet [Sensipar] 30 mg PO QHS #30 tablet 09/27/18 10/18/18 Unknown Rx Clonidine HCl [Catapres] 0.3 mg PO TID #90 tablet 09/27/18 10/18/18 Unknown Rx NIFEdipine XL [Procardia Xl] 60 mg PO Q12HR #60 tablet 09/27/18 10/18/18 Unknown Rx cloNIDine [Catapres] 0.1 mg PO TID #90 tablet 09/27/18 10/18/18 Unknown Rx hydrALAZINE [Apresoline TAB] 100 mg PO Q8HR 30 Days tablet 09/27/18 10/18/18 Unknown Rx Benzonatate [Tessalon Perles] 100 mg PO Q6H PRN #14 capsule 10/18/18 Unknown Rx DOXYCYCLINE Hyclate [Vibramycin 100 mg PO BID #7 capsule 10/18/18 Unknown Rx CAP] ISOSORBIDE MONOnitrate [Imdur ER] 60 mg PO DAILY #60 tablet 10/18/18 Unknown Rx Minoxidil [Loniten] 5 mg PO BID #60 tablet 10/18/18 Unknown Rx ED Physical Exam - General Limitations: No Limitations General appearance: alert, in no apparent distress - Head Head exam: Present: atraumatic, normocephalic - Eye Eye exam: Present: normal appearance, EOMI. Absent: nystagmus - ENT ENT exam: Present: normal exam, normal orophraynx, mucous membranes moist, normal external ear exam - Neck Neck exam: Present: normal inspection, full ROM. Absent: tenderness, meningismus - Respiratory Respiratory exam: Present: normal lung sounds bilaterally. Absent: respiratory distress - Cardiovascular Cardiovascular Exam: Present: normal rhythm, bradycardia, normal heart sounds. Absent: systolic murmur, diastolic murmur, rubs, gallop - GI/Abdominal GI/Abdominal exam: Present: soft. Absent: distended, tenderness, guarding, rebound, rigid, pulsatile mass - Rectal Rectal exam: Present: deferred - Extremities Exam Extremities exam: Present: normal inspection (there is a right upper extremity fistula, with no redness, pus or streaking. There is a left upper extremity nonfunctioning fistula), full ROM, other (2+ pulses noted in the bilateral upper, lower extremities. Compartments soft. No long bony tenderness. The pelvis is stable.). Absent: pedal edema, joint swelling, calf tenderness - Back Exam Back exam: Present: normal inspection, full ROM. Absent: tenderness, CVA tenderness (R), CVA tenderness (L), paraspinal tenderness, vertebral tenderness - Neurological Exam Neurological exam: Present: alert, other (Extraocular movements intact. Tongue midline. No facial droop. Facial sensation intact to light touch in the V1, V2, V3 distribution bilaterally. 5 and 5 strength in 4 extremities.. Sensation is intact to light touch in 4 extremities.). Absent: motor sensory deficit - Psychiatric Psychiatric exam: Present: flat affect - Skin Skin exam: Present: warm, dry, intact, normal color. Absent: rash ED Course Vital Signs 03/12/19 03/12/19 06:21 06:30 Temperature 98 F Pulse Rate 59 L Respiratory 18 18 Rate Blood Pressure 165/105 [Left] O2 Sat by Pulse 100 100 Oximetry - Reevaluation(s) Reevaluation #1: 03/12/19 07:58 Dr Hilton to follow in consultation Reevaluation #2: 03/12/19 08:00 Critical care time: 35 minutes Critical care time includes evaluation of laboratory studies, review of old medical records, physical examination, time spent managing patient's hyperkal emia, and discussion with multiple consulting services, including hospital medicine, and nephrology. This is not included appreciated time. ED Medical Decision Making - Lab Data Result diagrams: 03/12/19 06:47 03/12/19 06:47 Vital Signs 03/12/19 03/12/19 06:21 06:30 Temperature 98 F Pulse Rate 59 L Respiratory 18 18 Rate Blood Pressure 165/105 [Left] O2 Sat by Pulse 100 100 Oximetry Lab Results 03/12/19 03/12/19 Range/Units 06:47 06:47 WBC 9.6 (4.5-11.0) K/mm3 RBC 3.95 (3.65-5.03) M/mm3 Hgb 11.6 L (11.8-15.2) gm/dl Hct 35.6 (35.5-45.6) % MCV 90 (84-94) fl MCH 29 (28-32) pg MCHC 33 (32-34) % RDW 15.6 H (13.2-15.2) % Plt Count 261 (140-440) K/mm3 Sodium 129 L (137-145) mmol/L Chloride 93.8 L (98-107) mmol/L Carbon Dioxide 15 L (22-30) mmol/L Anion Gap 30 mmol/L BUN 101 H (9-20) mg/dL Creatinine 13.5 H (0.8-1.5) mg/dL Estimated GFR 4 ml/min BUN/Creatinine Ratio 7 % Glucose 101 H (75-100) mg/dL Calcium 9.0 (8.4-10.2) mg/dL Magnesium 3.20 H (1.7-2.3) mg/dL - EKG Data -: EKG Interpreted by Me Rate: bradycardia - EKG Data 03/12/19 07:49 This is a bradycardic rhythm, 57 beats for minute, normal axis, QTC within n ormal limits, high left ventricular voltage, ST elevation, concave up, inferior leads, ST depression/inversion, aVL, nonspecific ST abnormalities, no endorsement of chest pain, this is an abnormal EKG, this is not consistent with ST elevation myocardial infarction. - Medical Decision Making Differential diagnosis, including but not limited to: Hyperkalemia, uremia, azotemia, dialysis noncompliance Assessment and plan: 38-year-old gentleman sent to the emergency room by his radiation control health physicist for reported hyperkalemia. Laboratory studies demonstrate uremia, azotemia, metabolic acidosis, hyperkalemia, hypervolemic hyponatremia, all suggestive of dialysis noncompliance. The patient is afebrile with reassuring vital signs with the exception of bradycardia, which is not acutely symptomatic. He will be treated medically for presumed hyperkalemia. Case presented to the Hospital physician, Dr. Hiram Pan, who has accepted the patient to his service. We have placed a page out to the patient's private radiation control health physicist, and we are waiting for them to call back. ED Disposition Clinical Impression: ESRD (end stage renal disease) on dialysis, Noncompliance, Hyperkalemia Disposition: 09 OP ADMIT IP TO THIS HOSP Is pt being admited?: Yes Condition: Critical Referrals: PRIMARY CARE, [Primary Care Provider] - 3-5 Days
[2019-03-12 06:59] LABS: Hematocrit 35.6 % (35.5-45.6); Hemoglobin 11.6 gm/dl (11.8-15.2); Mean Corpuscular HGB Conc 33 % (32-34); Mean Corpuscular Volume 90 fl (84-94); Platelet Count 261 K/mm3 (140-440); Red Blood Count 3.95 M/mm3 (3.65-5.03); Red Cell Distribution Width 15.6 % (13.2-15.2)
[2019-03-12 07:28] LABS: BUN/Creatinine Ratio 7; Blood Urea Nitrogen 101 mg/dL (9-20); Hemolysis Index 181
[2019-03-12] MEDS ORDERED: PROVENTIL IH ONE (07:36)
[2019-03-12] MEDS ORDERED: HumuLIN R IV ONE (07:36)
[2019-03-12] MEDS ORDERED: D50W (25GM) Syringe IV ONE (07:36)
[2019-03-12] MEDS ORDERED: KIONEX PO ONE (07:36)
--- NOTE | 2019-03-12 07:48 | History and Physical Report ---
History of Present Illness Date of examination: 03/12/19 Date of admission: 03/12/19 Chief complaint: Hyperkalemia History of present illness: 38-year-old man with a history of hypertension, tobacco dependancy, end-stage renal disease on dialysis Monday and Monday came to the emergency room following a week of missed dialysis and sent for evaluation of H yperkalemia. Arrived via EMS. He denies physical pain at this time. He endorses generalized fatigue and muscle cramping. He denies headache, neck pain, chest pain, abdominal pain, shortness of breath, vomiting. Currently the family he missed dialysis due to family emergency. However to the ED was found to be hyperkalemic and with significant uremia was given cocktail for potassium management. His database management specialist is Dr. Marie Past History Past Medical History: ESRD, hypertension, hyperlipidemia Past Surgical History: Other (upper extremity AV grafts) Social history: lives with family, smoking, full code Family history: no significant family history Medications and Allergies Allergies Allergy/AdvReac Type Severity Reaction Status Date / Time cefazolin Allergy Severe Anaphylaxis Verified 09/19/18 02:16 Home Medications Medication Instructions Recorded Confirmed Last Taken Type Clonidine HCl [Catapres] 0.3 mg PO TID #90 tablet 09/27/18 03/12/19 Unknown Rx Carvedilol [Coreg] 6.25 mg PO BID 03/12/19 03/12/19 Unknown History amLODIPine [Norvasc] 10 mg PO DAILY 03/12/19 03/12/19 Unknown History Active Meds: Active Medications Calcium Gluconate 1,000 mg/ (Sodium Chloride) 110 mls @ 220 mls/hr IV ONCE ONE Stop: 03/12/19 08:29 Review of Systems All systems: negative Constitutional: no weight loss, no weight gain, no fever, no chills, no sweats, no night sweats, no anorexia, no fatigue, no weakness, no lethargy Ears, nose, mouth and throat: no ear discharge, no nose pain, no dental pain, no hoarseness, no swelling in mouth, no odynophagia, no headache, no vertigo, no neck fullness/pressure, no neck lump Cardiovascular: no orthopnea, no palpitations, no rapid/irregular heart beat, no shortness of breath, no dyspnea on exertion, no paroxysmal nocturnal dyspnea, no high blood pressure, no decreased exercise tolerance Respiratory: no cough, no shortness of breath, no wheezing, no pain on inspiration, no respiratory infections, no home oxygen, no other Gastrointestinal: no vomiting, no hematemesis, no melena, no loss of appetite, no heartburn, no dyspepsia/bloating Genitourinary Male: no flank pain, no urinary frequency, no genital pain, no impotence, no polyuria, no urinary retention Musculoskeletal: no neck stiffness, no arm numbness/tingling, no shooting leg pain, no muscle weakness, no myalgias, no limitation of motion, no loss of height, no prior amputations Integumentary: no redness, no boils, no lesions, no darkening of skin, no color changes, no foot/leg ulcers Neurological: no transient paralysis, no weakness, no numbness, no syncope, no migraines, no aphasia, no confusion, no sensory deficit, no paralysis Psychiatric: no anxiety, no sleep disturbances, no hypersomnia, no hallucinations, no hopelessness, no confusion Endocrine: no polyphagia, no polydipsia, no flushing, no weight change, no low blood sugars Hematologic/Lymphatic: no easy bruising, no easy bleeding, no lymphadenopathy Allergic/Immunologic: no persistent infections, no angioedema Exam - Physical Exam Narrative exam: VITAL SIGNS: Reviewed. GENERAL: The patient appeared well nourished and normally developed, Vital signs as documented. HEAD: No signs of head trauma. EYES: Pupils are equal. Extraocular motions intact. EARS: Hearing grossly intact. MOUTH: Oropharynx is normal. NECK: No adenopathy, no JVD. Mildly tender on the right side. CHEST: Chest with clear breath sounds bilaterally. No wheezes, rales, or rhonchi. CARDIAC: Regular rate and rhythm. S1 and S2, without murmurs, gallops, or rubs. VASCULAR: No Edema. Peripheral pulses normal and equal in all extremities. ABDOMEN: Soft, non tender and non distended. No rebound or guarding, and no masses palpated. Bowel Sounds normal. MUSCULOSKELETAL: Good range of motion of all major joints. Extremities without clubbing, cyanosis or edema. NEUROLOGIC EXAM: Alert and oriented x 3 No focal sensory or strength defici ts. Speech normal. Follows commands. PSYCHIATRIC: Mood normal. SKIN: Upper extremity AV graft palpable through - Constitutional Vitals: Temp Pulse Resp BP Pulse Ox 98 F 59 L 18 165/105 100 03/12/19 06:21 03/12/19 06:21 03/12/19 06:30 03/12/19 06:21 03/12/19 06:30 Results - Labs CBC & Chem 7: 03/12/19 06:47 03/12/19 14:39 Labs: Laboratory Last Values WBC 9.6 K/mm3 (4.5-11.0) 03/12/19 06:47 RBC 3.95 M/mm3 (3.65-5.03) 03/12/19 06:47 Hgb 11.6 gm/dl (11.8-15.2) L 03/12/19 06:47 Hct 35.6 % (35.5-45.6) 03/12/19 06:47 MCV 90 fl (84-94) 03/12/19 06:47 MCH 29 pg (28-32) 03/12/19 06:47 MCHC 33 % (32-34) 03/12/19 06:47 RDW 15.6 % (13.2-15.2) H 03/12/19 06:47 Plt Count 261 K/mm3 (140-440) 03/12/19 06:47 Sodium 129 mmol/L (137-145) L 03/12/19 06:47 Potassium TNR 03/12/19 06:47 Chloride 93.8 mmol/L (98-107) L 03/12/19 06:47 Carbon Dioxide 15 mmol/L (22-30) L 03/12/19 06:47 30 mmol/L 03/12/19 06:47 BUN 101 mg/dL (9-20) H 03/12/19 06:47 13.5 mg/dL (0.8-1.5) H 03/12/19 06:47 Estimated GFR 4 ml/min 03/12/19 06:47 7 % 03/12/19 06:47 Glucose 101 mg/dL (75-100) H 03/12/19 06:47 Calcium 9.0 mg/dL (8.4-10.2) 03/12/19 06:47 Magnesium 3.20 mg/dL (1.7-2.3) H 03/12/19 06:47 TNR 03/12/19 06:47 Assessment and Plan Assessment and plan: 38-year-old man with a history of hypertension, tobacco dependancy, end-stage renal disease on dialysis Monday and Monday came to the emergency room following a week of missed dialysis and sent for evaluation of Hyper kalemia. Arrived via EMS. He denies physical pain at this time. He endorses generalized fatigue and muscle cramping. He denies headache, neck pain, chest pain, abdominal pain, shortness of breath, vomiting. According to the patient he missed dialysis due to family emergency. His database management specialist is Dr. Marie He is sent to the emergency room for complaint of painless hyperkalemia. Patient reports his last dialysis was this past Monday. One week ago. Severe Hyperkalemia Hypertensive urgency ESRD Non Complaince Tobacco dependance Bradycardia Hyponatremia Anemia Azotemia Metabolic Acidosis stable diastolic dysfunction last noted ef in 2017- 50-60% with severely dilated left atrium, mild dilated right atrim severe pulmonary hypertension Plan Admit to ICU until potassium this resolved Consult already placed a database management specialist and will also consult to dairy husbandry worker Patient planned for dialysis today Counselling on complaince discussed in detail Resume appropraite home meds Discussed with ED doc and also Spindle Maker DVT/GI prophy Tobacco cessasion counselling provided in detail 15mins spent on counselling The high probability of a clinically significant, sudden or life threatening deterioration of the [REANL] system(s) required my full and direct attention, intervention and personal management. The aggregate critical care time was [75] minutes. This time is in addition to time spent performing reported procedures but includes the following: [X] Data Review and interpretation [X] Patient assessment and monitoring of vital signs [X] Documentation [X] Medication orders and management Advance Directives: Yes Plan of care discussed with patient/family: Yes
[2019-03-12] MEDS ORDERED: MORPHINE IV PRN (07:54)
[2019-03-12] MEDS ORDERED: SODIUM CHLORIDE FLUSH SYRINGE 10 ML IV PRN ×2 (07:54→07:56)
[2019-03-12] MEDS ORDERED: TYLENOL PO PRN (07:54)
[2019-03-12] MEDS ORDERED: ZOFRAN IV PRN (07:54)
[2019-03-12] MEDS ORDERED: CALCIUM GLUCONATE 1,000 MG in NACL 0.9% 100 ML IV ONE (08:00)
[2019-03-12] MEDS ORDERED: PROVENTIL IH PRN (08:00)
[2019-03-12 08:30] LABS: Albumin 3.3 g/dL (3.9-5); BUN/Creatinine Ratio 8; Blood Urea Nitrogen 104 mg/dL (9-20); Hemolysis Index 17
[2019-03-12 08:49] LABS: Alanine Aminotransferase < 5 units/L (7-56)
[2019-03-12] MEDS ORDERED: NACL 0.9% 100 ML IV PRN (08:49)
--- NOTE | 2019-03-12 09:22 | Consultation ---
History of Present Illness - Reason for Consult Consult date: 03/12/19 end stage renal disease, hyperkalemia - History of Present Illness Mr. Verde is a 38yo with ESRD on HD TTS. He last dialyzed on . He was advised to go to the ED on Monday due to persistent hyperkalemia. Patient's outpatient dialysis labs are notable for persistent hyperkalemia - K 6.4-7.1. Patient reports adherence to diet. Dialysis time was recently increased. He completes his full treatments. He is uninsured, and as such, he has not had a fistulogram in quite some time. In the ED, patient was bradycardic w/ K 8.2. Emergent HD ordered. Past History Past Medical History: ESRD, hypertension Past Surgical History: Other (RFA AVF) Social history: no significant social history Family history: no significant family history Medications and Allergies Allergies Allergy/AdvReac Type Severity Reaction Status Date / Time cefazolin Allergy Severe Anaphylaxis Verified 09/19/18 02:16 Home Medications Medication Instructions Recorded Confirmed Last Taken Type Clonidine HCl [Catapres] 0.3 mg PO TID #90 tablet 09/27/18 03/12/19 Unknown Rx Carvedilol [Coreg] 6.25 mg PO BID 03/12/19 03/12/19 Unknown History amLODIPine [Norvasc] 10 mg PO DAILY 03/12/19 03/12/19 Unknown History Active Meds: Active Medications Acetaminophen (Tylenol) 650 mg PO Q4H PRN PRN Reason: Pain MILD(1-3)/Fever >100.5/HOLLEY Albuterol (Proventil) 2.5 mg IH Q4HRT PRN PRN Reason: Shortness Of Breath Famotidine (Pepcid) 10 mg PO BID DAO Sodium Chloride (Nacl 0.9%) 100 mls @ 999 mls/hr IV TASHA PRN PRN Reason: Hypotension Morphine Sulfate (Morphine) 2 mg IV Q4H PRN PRN Reason: Pain, Moderate (4-6) Ondansetron HCl (Zofran) 4 mg IV Q8H PRN PRN Reason: Nausea And Vomiting Sodium Chloride (Sodium Chloride Flush Syringe 10 Ml) 10 ml IV BID DAO Sodium Chloride (Sodium Chloride Flush Syringe 10 Ml) 10 ml IV PRN PRN PRN Reason: LINE FLUSH Review of Systems All systems: negative Exam - Vital Signs Vital signs: Vital Signs Temp Pulse Resp BP Pulse Ox 98 F 59 L 18 165/105 100 03/12/19 06:21 03/12/19 06:21 03/12/19 06:21 03/12/19 06:21 03/12/19 06:21 - General Appearance General appearance: well-developed, well-nourished EENT: ATNC Respiratory: Clear to Ascultation Heart: regular, S1S2 Gastrointestinal: Present: normal. Absent: tenderness, distended Integumentary: no rash, warm and dry Musculoskeletal: Present: other (no edema) Psychiatric: cooperative Results - Lab Results 03/12/19 06:47 03/12/19 14:39 Most recent lab results Calcium 9.0 mg/dL (8.4-10.2) 03/12/19 07:56 Magnesium 3.20 mg/dL (1.7-2.3) H 03/12/19 06:47 Assessment and Plan Impression: * End stage renal disease * Hyperkalemia, severe * Uremia * Hypertension * Anemia secondary to ESRD * Secondary hyperparathyroidism Plan: * STAT HD treatment ordered * UF as tolerated * Have consulted Dr. Alves for AV access evaluation * Continue home antiHTN medications * Renal diet * Binders with meals
[2019-03-12] MEDS ORDERED: SODIUM CHLORIDE FLUSH SYRINGE 10 ML IV SCH (10:00)
[2019-03-12] MEDS: SODIUM CHLORIDE FLUSH SYRINGE 10 ML IV SCH ×2 (10:21→22:57)
[2019-03-12] MEDS: PEPCID PO SCH ×2 (10:21→22:57)
--- NOTE | 2019-03-12 14:21 | Event Note ---
Date: 03/12/[address] Hilton earlier. Patient has persistent hyperkalemia. She is concerned about poor functioning of his fistula. We will make patient nothing by mouth and plan on fistulogram tomorrow.
[2019-03-12 15:11] LABS: Calcium 8.9 mg/dL (8.4-10.2)
[2019-03-13 06:47] LABS: Basophils # (Auto) 0.1 K/mm3 (0.0-0.1); Basophils % (Auto) 1.5 % (0.0-1.8); Eosinophils # (Auto) 0.7 K/mm3 (0.0-0.4); Eosinophils % (Auto) 11.9 % (0.0-4.3); Hematocrit 37.5 % (35.5-45.6); Hemoglobin 12.7 gm/dl (11.8-15.2); Mean Corpuscular HGB Conc 34 % (32-34); Mean Corpuscular Volume 88 fl (84-94); Monocytes # (Auto) 0.6 K/mm3 (0.0-0.8); Monocytes % (Auto) 9.8 % (0.0-7.3); Platelet Count 265 K/mm3 (140-440); Red Blood Count 4.26 M/mm3 (3.65-5.03); Red Cell Distribution Width 14.9 % (13.2-15.2)
[2019-03-13 07:09] LABS: Calcium 8.9 mg/dL (8.4-10.2)
[2019-03-13] MEDS: RENVELA PO SCH ×4 (08:05→18:16)
[2019-03-13] MEDS: SODIUM CHLORIDE FLUSH SYRINGE 10 ML IV SCH ×2 (10:09→23:11)
[2019-03-13] MEDS: PEPCID PO SCH ×2 (10:22→23:10)
--- NOTE | 2019-03-13 10:26 | Consultation ---
History of Present Illness - Reason for Consult Consult date: 03/13/19 - History of Present Illness He is a 38-year-old male who normally dialyzes via a right arm radiocephalic fistula. He is currently experienced difficulties with hyperkalemia. He states that the fistulas been collapsing during dialysis. As admitted due to hyperkalemia although he previously missed dialysis several times due to a family emergency. We were asked to evaluate him to assess fistula function. Past History Past Medical History: ESRD, hypertension Past Surgical History: Other (RFA AVF) Social history: no significant social history Family history: no significant family history Medications and Allergies Allergies Allergy/AdvReac Type Severity Reaction Status Date / Time cefazolin Allergy Severe Anaphylaxis Verified 09/19/18 02:16 Home Medications Medication Instructions Recorded Confirmed Last Taken Type Clonidine HCl [Catapres] 0.3 mg PO TID #90 tablet 09/27/18 03/12/19 Unknown Rx Carvedilol [Coreg] 6.25 mg PO BID 03/12/19 03/12/19 Unknown History amLODIPine [Norvasc] 10 mg PO DAILY 03/12/19 03/12/19 Unknown History Active Meds: Active Medications Acetaminophen (Tylenol) 650 mg PO Q4H PRN PRN Reason: Pain MILD(1-3)/Fever >100.5/[place]OLLEY Albuterol (Proventil) 2.5 mg IH Q4HRT PRN PRN Reason: Shortness Of Breath Famotidine (Pepcid) 10 mg PO BID [facility] Last Admin: 03/12/19 22:57 Dose: 10 mg Documented by: Sodium Chloride (Nacl 0.9%) 100 mls @ 999 mls/hr IV TASHA PRN PRN Reason: Hypotension Morphine Sulfate (Morphine) 2 mg IV Q4H PRN PRN Reason: Pain, Moderate (4-6) Ondansetron HCl (Zofran) 4 mg IV Q8H PRN PRN Reason: Nausea And Vomiting Sevelamer Carbonate (Renvela) 1,600 mg PO AC [facility] Last Admin: 03/13/19 08:05 Dose: Not Given Documented by: Sodium Chloride (Sodium Chloride Flush Syringe 10 Ml) 10 ml IV BID [facility] Last Admin: 03/13/19 10:09 Dose: 10 ml Documented by: Sodium Chloride (Sodium Chloride Flush Syringe 10 Ml) 10 ml IV PRN PRN PRN Reason: LINE FLUSH Review of Systems All systems: negative (hypertension renal failure. fistula seems to collapse at times during dialysis.) Exam - Constitutional Vitals: Temp Pulse Resp BP Pulse Ox 98.5 F 63 20 174/108 97 03/13/19 06:17 03/13/19 06:17 03/13/19 06:17 03/13/19 06:17 03/13/19 06:17 General appearance: Present: no acute distress - Additional findings Additional findings: He has a functioning Florentin fistula in his right wrist with a nice thrill and bruit near the arterial anastomosis further up the arm the fistula becomes rather soft and easily collapsible. Compression of the fissure in the upper forearm results in prompt distention which suggest that there is not an outflow stenosis. Posterior palpation reveals that the fistula feels full and robust close to the arterial anastomosis but approximately 1 cm above that level the fistula becomes soft. Suspected there is a high-grade stenosis near the arterial end of the AV access there are he has diminished radial flow. Results - Labs CBC & Chem 7: 03/13/19 06:05 03/13/19 06:05 Labs: Abnormal lab results 03/12/19 03/13/19 03/13/19 Range/Units 14:39 06:05 06:05 [place] % (Auto) 9.8 H (0.0-7.3) % Eos % (Auto) 11.9 H (0.0-4.3) % Lymph # 1.0 L (1.2-5.4) K/mm3 Eos # 0.7 H (0.0-0.4) K/mm3 Potassium 5.3 H D (3.6-5.0) mmol/L Chloride 94.3 L 93.4 L (98-107) mmol/L BUN 25 H 38 H (9-20) mg/dL Creatinine 5.5 H D 7.3 H (0.8-1.5) mg/dL Glucose 180 H (75-100) mg/dL Assessment and Plan - Patient Problems (1) Mechanical complication of arteriovenous fistula surgically created Current Visit: Yes Status: Acute Qualifiers: Encounter type: initial encounter Qualified Code(s): T82.590A - Other mechanical complication of surgically created arteriovenous fistula, initial encounter Plan to address problem: Patient will need a fistulogram and if abnormalities identified angioplasty. Possibility of radial artery disease also exists. I explained the planned procedure to the patient. He's been made nothing by mouth. We're awaiting confirmation of the availability of time in the systems testing laboratory technician. Hopefully can proceeded a reasonable time later today.
--- NOTE | 2019-03-13 17:08 | Progress Note ---
Assessment and Plan Impression: * End stage renal disease * Hyperkalemia, severe * Uremia * Hypertension * Anemia secondary to ESRD * Secondary hyperparathyroidism Plan: * Hemodiaylsis tomorrow * UF as tolerated * Have consulted Dr. Alves for AV access evaluation * Resume home antiHTN medications * Renal diet * Binders with meals Subjective Date of service: 03/13/19 Interval history: Patient without complaint. Objective - Vital Signs Vital signs: Vital Signs - 12hr 03/13/19 03/13/19 03/13/19 06:17 11:07 13:33 Temperature 98.5 F 98.3 F Pulse Rate 63 62 Respiratory 20 20 Rate Blood Pressure 174/108 203/122 205/118 O2 Sat by Pulse 97 99 Oximetry - General Appearance General appearance: well-developed, well-nourished EENT: ATNC Respiratory: Present: Clear to Ascultation Cardiology: regular, S1S2 Gastrointestinal: normal, no tenderness, no distended Integumentary: no rash, warm and dry Musculoskeletal: other (no edema) Psychiatric: cooperative - Lab 03/13/19 06:05 03/13/19 06:05 Most recent lab results Calcium 8.9 mg/dL (8.4-10.2) 03/13/19 06:05 Magnesium 3.20 mg/dL (1.7-2.3) H 03/12/19 06:47 Medications & Allergies - Medications Allergies/Adverse Reactions: Allergies cefazolin Allergy (Severe, Verified 09/19/18 02:16) Anaphylaxis Home Medications: Home Medications Medication Instructions Recorded Confirmed Last Taken Type Clonidine HCl [Catapres] 0.3 mg PO TID #90 tablet 09/27/18 03/12/19 Unknown Rx Carvedilol [Coreg] 6.25 mg PO BID 03/12/19 03/12/19 Unknown History amLODIPine [Norvasc] 10 mg PO DAILY 03/12/19 03/12/19 Unknown History Active Medications: Generic Name Dose Route Start Last Admin Trade Name Freq PRN Reason Stop Dose Admin Acetaminophen 650 mg 03/12/19 07:54 Tylenol PO Q4H PRN Pain MILD(1-3)/Fever >100.5/HOLLEY Albuterol 2.5 mg 03/12/19 08:00 Proventil IH Q4HRT PRN Shortness Of Breath Famotidine 10 mg 03/12/19 10:00 03/13/19 10:22 Pepcid PO 10 mg BID DAO Administration Sodium Chloride 100 mls @ 999 mls/hr 03/12/19 08:49 Nacl 0.9% IV TASHA PRN Hypotension Morphine Sulfate 2 mg 03/12/19 07:54 Morphine IV Q4H PRN Pain, Moderate (4-6) Ondansetron HCl 4 mg 03/12/19 07:54 Zofran IV Q8H PRN Nausea And Vomiting Sevelamer Carbonate 1,600 mg 03/13/19 07:30 03/13/19 12:31 Renvela PO Not Given AC DAO Sodium Chloride 10 ml 03/12/19 10:00 03/13/19 10:09 Sodium Chloride Flush Syringe 10 Ml IV 10 ml BID DAO Administration Sodium Chloride 10 ml 03/12/19 07:56 Sodium Chloride Flush Syringe 10 Ml IV PRN PRN LINE FLUSH
[2019-03-13] MEDS: NORVASC PO SCH (17:34)
[2019-03-13] MEDS: CATAPRES PO SCH (17:35)
[2019-03-13] MEDS: COREG PO SCH ×2 (17:38→23:10)
--- NOTE | 2019-03-13 19:32 | Consultation ---
History of Present Illness Consult date: 03/13/19 History of present illness: PULMONARY AND CRITICAL CARE CONSULTATION. DR. SARGENT THANK YOU FOR ASKING US TO PARTICIPATE IN THE CARE OF THIS PATIENT. 38-year-old man with a history of hypertension, tobacco dependancy, end-stage renal disease on dialysis Monday and Monday came to the emergency room following a week of missed dialysis and sent for evaluation of Hyperkalemia. Arrived via EMS. He denies physical pain at this time. He endorses generalized fatigue and muscle cramping. He denies headache, neck pain, chest pain, abdominal pain, shortness of breath, vomiting. Currently the family he missed dialysis due to family emergency. However to the ED was found to be hyperkalemic and with significant uremia was given cocktail for potassium management. Past History Past Medical History: ESRD, hypertension Past Surgical History: Other (RFA AVF) Social history: no significant social history Family history: no significant family history Medications and Allergies Allergies Allergy/AdvReac Type Severity Reaction Status Date / Time cefazolin Allergy Severe Anaphylaxis Verified 09/19/18 02:16 Home Medications Medication Instructions Recorded Confirmed Last Taken Type Clonidine HCl [Catapres] 0.3 mg PO TID #90 tablet 09/27/18 03/12/19 Unknown Rx Carvedilol [Coreg] 6.25 mg PO BID 03/12/19 03/12/19 Unknown History amLODIPine [Norvasc] 10 mg PO DAILY 03/12/19 03/12/19 Unknown History Active Meds: Active Medications Acetaminophen (Tylenol) 650 mg PO Q4H PRN PRN Reason: Pain MILD(1-3)/Fever >100.5/HOLLEY Albuterol (Proventil) 2.5 mg IH Q4HRT PRN PRN Reason: Shortness Of Breath Amlodipine Besylate (Norvasc) 10 mg PO QDAY [facility] Last Admin: 03/13/19 17:34 Dose: 10 mg Documented by: Carvedilol (Coreg) 6.25 mg PO BID [facility] Last Admin: 03/13/19 17:38 Dose: 6.25 mg Documented by: Clonidine HCl (Catapres) 0.3 mg PO Q8H [facility] Last Admin: 03/13/19 17:35 Dose: 0.3 mg Documented by: Famotidine (Pepcid) 10 mg PO BID [facility] Last Admin: 03/13/19 10:22 Dose: 10 mg Documented by: Hydralazine HCl (Apresoline) 10 mg IV Q4HR PRN PRN Reason: Hypertension Sodium Chloride (Nacl 0.9%) 100 mls @ 999 mls/hr IV TASHA PRN PRN Reason: Hypotension Morphine Sulfate (Morphine) 2 mg IV Q4H PRN PRN Reason: Pain, Moderate (4-6) Ondansetron HCl (Zofran) 4 mg IV Q8H PRN PRN Reason: Nausea And Vomiting Sevelamer Carbonate (Renvela) 1,600 mg PO AC [facility] Last Admin: 03/13/19 18:16 Dose: 1,600 mg Documented by: Sodium Chloride (Sodium Chloride Flush Syringe 10 Ml) 10 ml IV BID [facility] Last Admin: 03/13/19 10:09 Dose: 10 ml Documented by: Sodium Chloride (Sodium Chloride Flush Syringe 10 Ml) 10 ml IV PRN PRN PRN Reason: LINE FLUSH Review of Systems All systems: negative Physical Examination Vital signs: Vital Signs Temp Pulse Resp BP Pulse Ox 98 F 59 L 18 165/105 100 03/12/19 06:21 03/12/19 06:21 03/12/19 06:21 03/12/19 06:21 03/12/19 06:21 Results - Laboratory Findings CBC and BMP: 03/13/19 06:05 03/13/19 06:05 Abnormal lab findings: Abnormal Labs 03/12/19 03/12/19 03/12/19 06:47 06:47 07:56 Hgb 11.6 L RDW 15.6 H [place] % (Auto) Eos % (Auto) Lymph # Eos # Sodium 129 L 131 L Potassium 8.2 H* Chloride 93.8 L 94.3 L Carbon Dioxide 15 L 16 L BUN 101 H 104 H Creatinine 13.5 H 13.7 H Glucose 101 H POC Glucose Magnesium 3.20 H ALT < 5 L Albumin 3.3 L 03/12/19 03/12/19 03/13/19 08:29 14:39 06:05 Hgb RDW [place] % (Auto) 9.8 H Eos % (Auto) 11.9 H Lymph # 1.0 L Eos # 0.7 H Sodium Potassium Chloride 94.3 L Carbon Dioxide BUN 25 H Creatinine 5.5 H D Glucose 180 H POC Glucose 148 H Magnesium ALT Albumin 03/13/19 06:05 Hgb RDW [place] % (Auto) Eos % (Auto) Lymph # Eos # Sodium Potassium 5.3 H D Chloride 93.4 L Carbon Dioxide BUN 38 H Creatinine 7.3 H Glucose POC Glucose Magnesium ALT Albumin Assessment and Plan - Patient Problems (1) Acute bronchitis Current Visit: No Status: Acute (2) Chest pain Current Visit: No Status: Acute Qualifiers: Chest pain type: unspecified Qualified Code(s): R07.9 - Chest pain, unspecified (3) Cough Current Visit: No Status: Acute (4) ESRD (end stage renal disease) on dialysis Current Visit: No Status: Chronic (5) HTN (hypertension), malignant Current Visit: No Status: Chronic (6) Hypertension Current Visit: No Status: Chronic
--- NOTE | 2019-03-13 19:58 | Progress Note ---
Assessment and Plan 38-year-old man with a history of hypertension, tobacco dependancy, end-stage renal disease on dialysis Monday and Monday came to the emergency room following a week of missed dialysis and sent for evaluation of Hyperkalemia. Arrived via EMS. He denies physical pain at this time. He endorses generalized fatigue and muscle cramping. He denies headache, neck pain, chest pain, abdominal pain, shortness of breath, vomiting. According to the patient he missed dialysis due to family emergency. His cardiac specialist is Dr. Marie He is sent to the emergency room for complaint of painless hyperkalemia. Patient reports his last dialysis was this past Monday. One week ago. Severe Hyperkalemia--Nearly resolved--K 5.3 Hypertensive urgency--BP still high -hence held discharge ESRD--Cont HD Non Complaince--Counselled again Tobacco dependance Bradycardia--better Hyponatremia- improved--137 Na Anemia Azotemia Metabolic Acidosis--Improved stable diastolic dysfunction last noted ef in 2017- 50-60% with severely dilated left atrium, mild dilated right atrim severe pulmonary hypertension Will d/c tomorrow if BP normal Subjective Date of service: 03/13/19 Principal diagnosis: Hyperkalemia and Hypertensive emergency Interval history: Had HD-Symptomatically better Objective - Constitutional Vitals: Vital Signs - 12hr 03/13/19 03/13/19 03/13/19 11:07 13:33 17:34 Temperature 98.3 F Pulse Rate 62 59 L Respiratory 20 Rate Blood Pressure 203/122 205/118 218/128 O2 Sat by Pulse 99 Oximetry 03/13/19 03/13/19 03/13/19 17:35 17:38 17:58 Temperature 98.3 F Pulse Rate 59 L 59 L 61 Respiratory 20 Rate Blood Pressure 218/128 206/121 O2 Sat by Pulse 98 Oximetry General appearance: Present: no acute distress, well-nourished - EENT Eyes: PERRL, EOM intact ENT: hearing intact, clear oral mucosa Ears: bilateral: normal - Neck Neck: supple, normal ROM - Respiratory Respiratory effort: normal Respiratory: bilateral: CTA - Breasts Breasts: normal - Cardiovascular Heart rate: 78 Rhythm: regular Heart Sounds: Present: S1 & S2. Absent: gallop, rub Extremities: pulses intact, No edema, normal color, Full ROM - Gastrointestinal General gastrointestinal: Present: soft, non-tender, non-distended, normal bowel sounds - Genitourinary Male genitourinary: normal - Integumentary Integumentary: clear, warm, dry - Musculoskeletal Musculoskeletal: 1, strength equal bilaterally - Neurologic Neurologic: moves all extremities - Psychiatric Psychiatric: memory intact, appropriate mood/affect, intact judgment & insight - Labs CBC & Chem 7: 03/13/19 06:05 03/13/19 06:05 Labs: Abnormal lab results 03/13/19 03/13/19 Range/Units 06:05 06:05 [place] % (Auto) 9.8 H (0.0-7.3) % Eos % (Auto) 11.9 H (0.0-4.3) % Lymph # 1.0 L (1.2-5.4) K/mm3 Eos # 0.7 H (0.0-0.4) K/mm3 Potassium 5.3 H D (3.6-5.0) mmol/L Chloride 93.4 L (98-107) mmol/L BUN 38 H (9-20) mg/dL Creatinine 7.3 H (0.8-1.5) mg/dL
--- NOTE | 2019-03-13 20:12 | Discharge Summary ---
Providers - Providers Date of Admission: 03/12/19 07:52 Date of discharge: 03/13/19 Attending physician: MARJORIE CORTEZ 03/12/19 06:37 Consult to Physician [CONS] Urgent Comment: Dr. Khan spoke with Dr. Hilton @ [id number] Consulting Provider: ADELSO MARIE Physician Instructions: Reason For Exam: esrd hyperkalemia 03/12/19 07:56 Consult to Dietitian/Nutrition [CONS] Routine Physician Instructions: Reason For Exam: Reason for Consult: Malnutrition 03/12/19 07:59 Consult to Physician [CONS] Routine Comment: Consulting Provider: GERARD MENSAH Physician Instructions: Reason For Exam: hyperkalemia, bradycardia 03/12/19 10:18 Consult to Physician [CONS] Routine Comment: Office notified @ 1210 Consulting Provider: ANAIS DAUGHERTY Physician Instructions: Reason For Exam: Fistulogram, persistent hyperkalemia Primary care physician: IT SUPPORT ANALYST Hospitalization Condition: Critical Hospital course: 38-year-old man with a history of hypertension, tobacco dependancy, end-stage renal disease on dialysis Monday and Monday came to the emergency room following a week of missed dialysis and sent for evaluation of Hyperkalemia. Arrived via EMS. He denies physical pain at this time. He endorses generalized fatigue and muscle cramping. He denies headache, neck pain, chest pain, abdominal pain, shortness of breath, vomiting. According to the patient he missed dialysis due to family emergency. His picker/puller is Dr. Marie He is sent to the emergency room for complaint of painless hyperkalemia. Patient reports his last dialysis was this past Monday. One week ago. Severe Hyperkalemia--Nearly resolved--K 5.3 Hypertensive urgency--resolved-BP at discharge 154/101,Added Losartan 100 mg po qd ESRD--Cont HD Non Complaince--Counselled again Tobacco dependance Bradycardia--better Hyponatremia- improved--137 Na Anemia Azotemia Metabolic Acidosis--Improved stable diastolic dysfunction last noted ef in 2017- 50-60% with severely dilated left atrium, mild dilated right atrim severe pulmonary hypertensio Disposition: - TO HOME OR SELFCARE Core Measure Documentation - Palliative Care Palliative Care/ Comfort Measures: Not Applicable - Core Measures Any of the following diagnoses?: none Exam - Constitutional Vitals: Temp Pulse Resp BP Pulse Ox 98.0 F 70 20 154/101 96 03/13/19 20:02 03/13/19 20:02 03/13/19 20:02 03/13/19 20:02 03/13/19 20:02 General appearance: Present: no acute distress, well-nourished - EENT Eyes: Present: PERRL ENT: hearing intact, clear oral mucosa - Neck Neck: Present: supple, normal ROM - Respiratory Respiratory effort: normal Respiratory: bilateral: CTA - Cardiovascular Heart rate: 78 Rhythm: regular Heart Sounds: Present: S1 & S2. Absent: rub, click - Extremities Extremities: pulses symmetrical, No edema Peripheral Pulses: within normal limits - Abdominal General gastrointestinal: Present: soft, non-tender, non-distended, normal bowel sounds Male genitourinary: Present: normal - Integumentary Integumentary: Present: clear, warm, dry - Musculoskeletal Musculoskeletal: gait normal, strength equal bilaterally - Psychiatric Psychiatric: appropriate mood/affect, intact judgment & insight - Neurologic Neurologic: CNII-XII intact, moves all extremities - Allied Health Allied health notes reviewed: nursing, case management Plan Activity: no restrictions Diet: renal Follow up with: PRIMARY CAREMD [Primary Care Provider] - 3-5 Days
--- NOTE | 2019-03-13 20:59 | Event Note ---
Date: 03/13/19 PULMONARY NOTE Patient denies chest pain, cough or shortness of breath. Patient denies history of smoking. O2 saturation 96% on room air. No acute respiratory distress. No chest xray in the chart. Recommend to get chest xray. Since patient has no complaints from pulmonary butts at this time. Signing off the case. If any pulmonary help needed call us back.
[2019-03-13] MEDS: COZAAR PO SCH (23:09)
--- NOTE | 2019-03-13 23:15 | Event Note ---
Date: 03/13/19 D/c cancelled For Fistulogram in a[facility]
[2019-03-14] MEDS: CATAPRES PO SCH ×3 (02:32→18:36)
[2019-03-14] MEDS ORDERED: NACL 0.9% 100 ML IV PRN (09:20)
--- NOTE | 2019-03-14 09:22 | Progress Note ---
Assessment and Plan Impression: * End stage renal disease * Hyperkalemia, severe * Uremia * Hypertension * Anemia secondary to ESRD * Secondary hyperparathyroidism Plan: * Awaiting AV access evaluation * Hemodialysis to follow - continue TTS schedule * UF as tolerated * Resume home antiHTN medications * Renal diet * Binders with meals * BMP ordered Subjective Date of service: 03/14/19 Principal diagnosis: Hyperkalemia and Hypertensive emergency Interval history: Patient has no complaints today. Objective - Vital Signs Vital signs: Vital Signs - 12hr 03/13/19 03/13/19 03/14/19 23:06 23:10 02:26 Temperature 98.2 F Pulse Rate 75 76 79 Respiratory 20 Rate Blood Pressure 158/116 158/116 163/120 Blood Pressure [Left] O2 Sat by Pulse 98 97 Oximetry 03/14/19 03/14/19 03/14/19 02:32 05:11 08:44 Temperature 98.0 F Pulse Rate 63 55 L Respiratory 22 Rate Blood Pressure 167/114 147/114 Blood Pressure 157/105 [Left] O2 Sat by Pulse 98 Oximetry - General Appearance General appearance: well-developed, well-nourished EENT: ATNC Respiratory: Present: Clear to Ascultation Cardiology: regular, S1S2 Gastrointestinal: normal Integumentary: no rash, warm and dry Neurologic: alert and oriented x3 Psychiatric: cooperative - Lab 03/13/19 06:05 03/14/19 09:39 Most recent lab results Calcium 8.9 mg/dL (8.4-10.2) 03/13/19 06:05 Magnesium 3.20 mg/dL (1.7-2.3) H 03/12/19 06:47 Medications & Allergies - Medications Allergies/Adverse Reactions: Allergies cefazolin Allergy (Severe, Verified 09/19/18 02:16) Anaphylaxis Home Medications: Home Medications Medication Instructions Recorded Confirmed Last Taken Type Carvedilol [Coreg] 6.25 mg PO BID 03/12/19 03/12/19 Unknown History Carvedilol [Coreg] 6.25 mg PO BID #60 tablet 03/13/19 Unknown Rx Clonidine HCl [Catapres] 0.3 mg PO TID #90 tablet 03/13/19 Unknown Rx Losartan [Cozaar] 100 mg PO QDAY #30 tablet 03/13/19 Unknown Rx Sevelamer Carbonate [Renvela] 1,600 mg PO AC #90 tablet 03/13/19 Unknown Rx amLODIPine [Norvasc] 10 mg PO DAILY #30 tablet 03/13/19 Unknown Rx Active Medications: Generic Name Dose Route Start Last Admin Trade Name Freq PRN Reason Stop Dose Admin Acetaminophen 650 mg 03/12/19 07:54 Tylenol PO Q4H PRN Pain MILD(1-3)/Fever >100.5/[place]LEY Albuterol 2.5 mg 03/12/19 08:00 Proventil IH Q4HRT PRN Shortness Of Breath Amlodipine Besylate 10 mg 03/13/19 17:09 03/13/19 17:34 Norvasc PO 10 mg QDAY DAO Administration Carvedilol 6.25 mg 03/13/19 17:10 03/13/19 23:10 Coreg PO 6.25 mg BID DAO Administration Clonidine HCl 0.3 mg 03/13/19 17:09 03/14/19 02:32 Catapres PO 0.3 mg Q8H DAO Administration Famotidine 10 mg 03/12/19 10:00 03/13/19 23:10 Pepcid PO 10 mg BID DAO Administration Hydralazine HCl 10 mg 03/13/19 17:42 Apresoline IV Q4HR PRN Hypertension Sodium Chloride 100 mls @ 999 mls/hr 03/12/19 08:49 Nacl 0.9% IV TASHA PRN Hypotension Sodium Chloride 100 mls @ 999 mls/hr 03/14/19 09:20 Nacl 0.9% IV TASHA PRN Hypotension Losartan Potassium 100 mg 03/13/19 20:00 03/13/19 23:09 Cozaar PO 100 mg QDAY DAO Administration Morphine Sulfate 2 mg 03/12/19 07:54 Morphine IV Q4H PRN Pain, Moderate (4-6) Ondansetron HCl 4 mg 03/12/19 07:54 Zofran IV Q8H PRN Nausea And Vomiting Sevelamer Carbonate 1,600 mg 03/13/19 07:30 03/13/19 18:16 Renvela PO 1,600 mg AC DAO Administration Sodium Chloride 10 ml 03/12/19 10:00 03/13/19 23:11 Sodium Chloride Flush Syringe 10 Ml IV 10 ml BID DAO Administration Sodium Chloride 10 ml 03/12/19 07:56 Sodium Chloride Flush Syringe 10 Ml IV PRN PRN LINE FLUSH
[2019-03-14 10:46] LABS: Calcium 9.3 mg/dL (8.4-10.2)
[2019-03-14] MEDS: RENVELA PO SCH ×3 (10:49→18:36)
[2019-03-14] MEDS: COREG PO SCH ×2 (10:50→22:46)
[2019-03-14] MEDS: PEPCID PO SCH ×2 (10:50→22:46)
[2019-03-14] MEDS: COZAAR PO SCH (10:50)
[2019-03-14] MEDS: NORVASC PO SCH ×2 (10:50→17:12)
[2019-03-14] MEDS: APRESOLINE IV PRN (12:04)
[2019-03-14] MEDS: SODIUM CHLORIDE FLUSH SYRINGE 10 ML IV SCH ×2 (12:05→22:48)
--- NOTE | 2019-03-14 14:22 | Progress Note ---
Assessment and Plan Assessment and plan: 38-year-old man with a history of hypertension, tobacco dependancy, end-stage renal disease on dialysis Monday and Monday came to the emergency room following a week of missed dialysis and sent for evaluation of Hyperkalemia. Arrived via EMS. He denies physical pain at this time. He endorses generalized fatigue and muscle cramping. He denies headache, neck pain, chest pain, abdominal pain, shortness of breath, vomiting. According to the patient he missed dialysis due to family emergency. His senior test engineer is Dr. Marie Severe Hyperkalemia--recurrent and resistant. Hypertensive urgency--resolved-BP at ESRD--Cont HD Non Complaince--Counselled again Tobacco dependance Bradycardia--better Hyponatremia- improved--137 Na Anemia Azotemia Metabolic Acidosis--Improved stable diastolic dysfunction last noted ef in 2017- 50-60% with severely dilated left atrium, mild dilated right atrim severe pulmonary hypertensio Plan Continue supportive care awaiting fistulogram to be done today Added Losartan 100 mg po qd Nephrology and Vascular input noted Patient planned for dialysis today Counselling on complaince discussed in detail Monitor electrolyte for correction with dialysis Resume appropraite home meds DVT/GI prophy Tobacco cessasion counselling provided in detail 15mins spent on counselling Anticipate discharge in am if K better following fistulogram adn dialysis History Interval history: Patient seen and examined in no acute distress at this time Hospitalist Physical - Physical exam Narrative exam: VITAL SIGNS: Reviewed. GENERAL: The patient appeared well nourished and normally developed, Vital signs as documented. HEAD: No signs of head trauma. EYES: Pupils are equal. Extraocular motions intact. EARS: Hearing grossly intact. MOUTH: Oropharynx is normal. NECK: No adenopathy, no JVD. Mildly tender on the right side. CHEST: Chest with clear breath sounds bilaterally. No wheezes, rales, or rhonchi. CARDIAC: Regular rate and rhythm. S1 and S2, without murmurs, gallops, or rubs. VASCULAR: No Edema. Peripheral pulses normal and equal in all extremities. ABDOMEN: Soft, non tender and non distended. No rebound or guarding, and no masses palpated. Bowel Sounds normal. MUSCULOSKELETAL: Good range of motion of all major joints. Extremities without clubbing, cyanosis or edema. NEUROLOGIC EXAM: Alert and oriented x 3 No focal sensory or strength deficits. Speech normal. Follows commands. PSYCHIATRIC: Mood normal. SKIN: Upper extremity AV graft palpable through - Constitutional Vitals: Temp Pulse Resp BP Pulse Ox 98.3 F 57 L 14 181/114 100 03/14/19 11:48 03/14/19 12:04 03/14/19 11:48 03/14/19 12:04 03/14/19 11:48 General appearance: Present: no acute distress, well-nourished Results - Labs CBC & Chem 7: 03/13/19 06:05 03/14/19 09:39 Labs: Laboratory Last Values WBC 6.2 K/mm3 (4.5-11.0) 03/13/19 06:05 RBC 4.26 M/mm3 (3.65-5.03) 03/13/19 06:05 Hgb 12.7 gm/dl (11.8-15.2) 03/13/19 06:05 Hct 37.5 % (35.5-45.6) 03/13/19 06:05 MCV 88 fl (84-94) 03/13/19 06:05 MCH 30 pg (28-32) 03/13/19 06:05 MCHC 34 % (32-34) 03/13/19 06:05 RDW 14.9 % (13.2-15.2) 03/13/19 06:05 Plt Count 265 K/mm3 (140-440) 03/13/19 06:05 Lymph % (Auto) 16.0 % (13.4-35.0) 03/13/19 06:05 [place] % (Auto) 9.8 % (0.0-7.3) H 03/13/19 06:05 Eos % (Auto) 11.9 % (0.0-4.3) H 03/13/19 06:05 Baso % (Auto) 1.5 % (0.0-1.8) 03/13/19 06:05 Lymph # 1.0 K/mm3 (1.2-5.4) L 03/13/19 06:05 [place] # 0.6 K/mm3 (0.0-0.8) 03/13/19 06:05 Eos # 0.7 K/mm3 (0.0-0.4) H 03/13/19 06:05 Baso # 0.1 K/mm3 (0.0-0.1) 03/13/19 06:05 Seg Neutrophils % 60.8 % (40.0-70.0) 03/13/19 06:05 Seg Neutrophils # 3.7 K/mm3 (1.8-7.7) 03/13/19 06:05 Sodium 135 mmol/L (137-145) L 03/14/19 09:39 Potassium 6.4 mmol/L (3.6-5.0) H* D 03/14/19 09:39 Chloride 91.7 mmol/L (98-107) L 03/14/19 09:39 Carbon Dioxide 23 mmol/L (22-30) 03/14/19 09:39 27 mmol/L 03/14/19 09:39 BUN 56 mg/dL (9-20) H 03/14/19 09:39 10.4 mg/dL (0.8-1.5) H 03/14/19 09:39 Estimated GFR 6 ml/min 03/14/19 09:39 5 % 03/14/19 09:39 Glucose 87 mg/dL (75-100) 03/14/19 09:39 POC Glucose 148 (70-105) H 03/12/19 08:29 Calcium 9.3 mg/dL (8.4-10.2) 03/14/19 09:39 Magnesium 3.20 mg/dL (1.7-2.3) H 03/12/19 06:47 0.20 mg/dL (0.1-1.2) 03/12/19 07:56 AST 5 units/L (5-40) 03/12/19 07:56 ALT < 5 units/L (7-56) L 03/12/19 07:56 118 units/L (35-129) 03/12/19 07:56 74 units/L (55-170) 03/12/19 07:56 6.9 g/dL (6.3-8.2) 03/12/19 07:56 3.3 g/dL (3.9-5) L 03/12/19 07:56 0.9 % 03/12/19 07:56 Active Medications - Current Medications Current Medications: Generic Name Dose Route Start Last Admin Trade Name Freq PRN Reason Stop Dose Admin Acetaminophen 650 mg 03/12/19 07:54 Tylenol PO Q4H PRN Pain MILD(1-3)/Fever >100.5/HOLLEY Albuterol 2.5 mg 03/12/19 08:00 Proventil IH Q4HRT PRN Shortness Of Breath Amlodipine Besylate 10 mg 03/13/19 17:09 03/14/19 10:50 Norvasc PO Not Given QDAY [facility] Carvedilol 6.25 mg 03/13/19 17:10 03/14/19 10:50 Coreg PO Not Given BID [facility] Clonidine HCl 0.3 mg 03/13/19 17:09 03/14/19 10:49 Catapres PO Not Given Q8H [facility] Famotidine 10 mg 03/12/19 10:00 03/14/19 10:50 Pepcid PO Not Given BID [facility] Hydralazine HCl 10 mg 03/13/19 17:42 03/14/19 12:04 Apresoline IV 10 mg Q4HR PRN Administration Hypertension Sodium Chloride 100 mls @ 999 mls/hr 03/12/19 08:49 Nacl 0.9% IV TASHA PRN Hypotension Sodium Chloride 100 mls @ 999 mls/hr 03/14/19 09:20 Nacl 0.9% IV TASHA PRN Hypotension Losartan Potassium 100 mg 03/13/19 20:00 03/14/19 10:50 Cozaar PO Not Given QDAY [facility] Morphine Sulfate 2 mg 03/12/19 07:54 Morphine IV Q4H PRN Pain, Moderate (4-6) Ondansetron HCl 4 mg 03/12/19 07:54 Zofran IV Q8H PRN Nausea And Vomiting Sevelamer Carbonate 1,600 mg 03/13/19 07:30 03/14/19 10:49 Renvela PO Not Given DAO Sodium Chloride 10 ml 03/12/19 10:00 03/14/19 12:05 Sodium Chloride Flush Syringe 10 Ml IV 10 ml BID DAO Administration Sodium Chloride 10 ml 03/12/19 07:56 Sodium Chloride Flush Syringe 10 Ml IV PRN PRN LINE FLUSH Nutrition/Malnutrition Assess - Dietary Evaluation Nutrition/Malnutrition Findings: Nutrition Notes Start: 03/12/19 15:48 Freq: Status: Active Protocol: Document 03/13/19 09:26 JANUARY (Rec: 03/13/19 09:30 JANUARY SRW- [email or web address]) Nutrition Notes Initial or Follow up Assessment Current Diagnosis CKD (stage V CKD),Hypertension ,Hyperlipidemia Other Pertinent Diagnosis Severe hyperkalemia Current Diet NPO Labs/Tests K 5.3 BUN 38 Cr 7.3 Pertinent Medications Renvela Height 5 ft 4 in Weight 62 kg [place] Body Weight (kg) 59.09 BMI 23.4 Subjective/Other Information Pt NPO for fistulogram today. Per records, he missed one wk of HD [employer]. Burn Absent Trauma Absent #1 Nutrition Diagnosis Inadequate oral intake Etiology scheduled procedure As Evidenced by Signs and Symptoms pt NPO Is patient on ventilator? No Is Patient Ambulatory and/or Out of Bed Yes [facility]OOB) [ 1886.300 [id number]] Calculation Used for Recommendations [facility] or Additional Notes Pro needs 1.2-1.4g/k-87g/ day Fluid needs 1-1.5L/day Nutrition Intervention Change Diet Order: Advance to Renal diet when medically feasible Goal #1 Diet advancement to [place]ju[place] nutrient needs Anticipated Discharge Needs: Renal diet Follow-Up By: 03/15/19 Additional Comments F/U: diet advancement/intakes
[2019-03-14] MEDS ORDERED: HEPARIN 10,000 UNITS/10 ML ONE ×2 (15:01→16:00)
[2019-03-14] MEDS ORDERED: NACL 0.9% 500 ML 500 ML ONE (15:01)
[2019-03-14] MEDS ORDERED: HEPARIN/NS 5000 UNIT/500ML(CATH LAB) 1,000 ML IR ONE (15:01)
[2019-03-14] MEDS: XYLOCAINE 2% INFILTRATI ONE ×3 (15:50→16:35)
[2019-03-14] MEDS: VERSED ONE ×2 (15:50→16:17)
[2019-03-14] MEDS: SUBLIMAZE ONE ×2 (15:51→16:17)
--- NOTE | 2019-03-14 16:51 | Operative Report ---
Operative Report Operative Report: Date of procedure: 03/14/2019 Pre-operative diagnosis: Mechanical complication of hemodialysis fistula right arm Post-operative diagnosis: Same Procedure name(s): Insertion of catheter with fistulogram of brachiocephalic AV fistula right arm and balloon angioplasty of the peripheral dialysis circuit Surgeon: Izaiah Wall MD Chief Engineering Division: None Anesthesia: Moderate sedation: Beginning time 1545 to 1637 total sedation time 52 minutes EBL: None Specimen(s): None Complications: None Findings: High-grade stenosis of the AV fistula near the arterial anastomosis of approximately 70% successfully relieved by balloon angioplasty, medical stenosis of the radial artery just proximal to the arterial anastomosis of at least 95% successfully relieved with balloon angioplasty. AV fistula function dramatically improved. Fistula ready for cannulation. Procedure: Access was obtained in the AV fistula using ultrasound guidance and micropuncture technique and a retrograde that is towards the arterial anastomosis orientation. Microwire and sheath were placed contrast was injected which noted the above-mentioned findings of the tandem proximal lesions. Patient was given moderate sedation Versed and fentanyl and heparin and I upsized to a 7 [place] introducer. Using a vertebral catheter and a rim catheter I was able to manipulate a wire into the radial artery where contrast was again injected confirming above-mentioned findings. A few 18 wire was advanced into the radial artery and initially a 3 x 40 balloon followed by a 4 x 40 balloon was used to treat the radial artery lesion. It is not clear that there was outflow beyond the anastomosis to the distal radial artery but the hand remained viable. The fistula stenosis was treated with a 6 x 40 balloon. A contrast injection showed resolution of both lesions. The fistula developed a pronounced thrill and bruit which was dramatically more robust than preoperatively. Procedure was then terminated by removing all guidewires and catheters and the sheath was extracted over a pursestring chromic suture. The stasis was excel lent. Access is ready for use.
[2019-03-14] MEDS ORDERED: NACL 0.9 (PRIMING MACHINE ONLY DIALYSIS) MC ONE (20:01)
[2019-03-15] MEDS: CATAPRES PO SCH ×2 (01:21→12:16)
[2019-03-15 06:17] LABS: Calcium 9.8 mg/dL (8.4-10.2)
[2019-03-15] MEDS: APRESOLINE IV PRN ×2 (07:13→13:18)
[2019-03-15] MEDS: COZAAR PO SCH (09:10)
[2019-03-15] MEDS: SODIUM CHLORIDE FLUSH SYRINGE 10 ML IV SCH (09:11)
[2019-03-15] MEDS: NORVASC PO SCH (09:11)
[2019-03-15] MEDS: PEPCID PO SCH (09:11)
[2019-03-15] MEDS: COREG PO SCH (09:11)
[2019-03-15] MEDS: RENVELA PO SCH (09:11)
--- NOTE | 2019-03-15 10:06 | Progress Note ---
Assessment and Plan Impression: * End stage renal disease * Malfunctioning AVF --Fistulogram w/ balloon angioplasty: high-grade stenosis of the AV fistula near the arterial anastomosis; medical stenosis of the radial artery just proximal to the arterial anastomosis (March 14) * Hyperkalemia, severe * Uremia * Hypertension * Anemia secondary to ESRD * Secondary hyperparathyroidism Plan: * Continue HD TTS schedule * UF as tolerated * Continuehome antiHTN medications * Renal diet * Binders with meals * Stable for d/c from a renal standpoint Subjective Date of service: 03/15/19 Principal diagnosis: Hyperkalemia and Hypertensive emergency Interval history: Patient has no complaints today Objective - Vital Signs Vital signs: Vital Signs - 12hr 03/14/19 03/14/19 03/15/19 22:14 22:46 01:21 Temperature 98.8 F Pulse Rate 94 H 67 Respiratory 22 Rate Blood Pressure 178/126 150/90 187/115 O2 Sat by Pulse Oximetry 03/15/19 03/15/19 03/15/19 06:44 07:13 09:10 Temperature Pulse Rate 68 68 87 Respiratory 20 Rate Blood Pressure 170/104 170/104 167/117 O2 Sat by Pulse 96 Oximetry - General Appearance General appearance: well-developed, well-nourished EENT: ATNC Respiratory: Present: Clear to Ascultation Cardiology: regular, S1S2 Gastrointestinal: normal, no tenderness, no distended Integumentary: no rash, warm and dry Neurologic: no focal deficit Psychiatric: cooperative - Lab 03/13/19 06:05 03/15/19 05:23 Most recent lab results Calcium 9.8 mg/dL (8.4-10.2) 03/15/19 05:23 Magnesium 3.20 mg/dL (1.7-2.3) H 03/12/19 06:47 Medications & Allergies - Medications Allergies/Adverse Reactions: Allergies cefazolin Allergy (Severe, Verified 09/19/18 02:16) Anaphylaxis Home Medications: Home Medications Medication Instructions Recorded Confirmed Last Taken Type Carvedilol [Coreg] 6.25 mg PO BID 03/12/19 03/12/19 Unknown History Carvedilol [Coreg] 6.25 mg PO BID #60 tablet 03/13/19 Unknown Rx Clonidine HCl [Catapres] 0.3 mg PO TID #90 tablet 03/13/19 Unknown Rx Losartan [Cozaar] 100 mg PO QDAY #30 tablet 03/13/19 Unknown Rx Sevelamer Carbonate [Renvela] 1,600 mg PO AC #90 tablet 03/13/19 Unknown Rx amLODIPine [Norvasc] 10 mg PO DAILY #30 tablet 03/13/19 Unknown Rx Active Medications: Generic Name Dose Route Start Last Admin Trade Name Freq PRN Reason Stop Dose Admin Acetaminophen 650 mg 03/12/19 07:54 Tylenol PO Q4H PRN Pain MILD(1-3)/Fever >100.5/[place]OLLEY Albuterol 2.5 mg 03/12/19 08:00 Proventil IH Q4HRT PRN Shortness Of Breath Amlodipine Besylate 10 mg 03/13/19 17:09 03/15/19 09:11 Norvasc PO 10 mg QDAY DAO Administration Carvedilol 6.25 mg 03/13/19 17:10 03/15/19 09:11 Coreg PO 6.25 mg BID DAO Administration Clonidine HCl 0.3 mg 03/13/19 17:09 03/15/19 01:21 Catapres PO 0.3 mg Q8H DAO Administration Famotidine 10 mg 03/12/19 10:00 03/15/19 09:11 Pepcid PO 10 mg BID DAO Administration Hydralazine HCl 10 mg 03/13/19 17:42 03/15/19 07:13 Apresoline IV 10 mg Q4HR PRN Administration Hypertension Sodium Chloride 100 mls @ 999 mls/hr 03/12/19 08:49 Nacl 0.9% IV TASHA PRN Hypotension Sodium Chloride 100 mls @ 999 mls/hr 03/14/19 09:20 Nacl 0.9% IV TASHA PRN Hypotension Losartan Potassium 100 mg 03/13/19 20:00 03/15/19 09:10 Cozaar PO 100 mg QDAY DAO Administration Morphine Sulfate 2 mg 03/12/19 07:54 Morphine IV Q4H PRN Pain, Moderate (4-6) Ondansetron HCl 4 mg 03/12/19 07:54 Zofran IV Q8H PRN Nausea And Vomiting Sevelamer Carbonate 1,600 mg 03/13/19 07:30 03/15/19 09:11 Renvela PO 1,600 mg AC DAO Administration Sodium Chloride 10 ml 03/12/19 10:00 03/15/19 09:11 Sodium Chloride Flush Syringe 10 Ml IV 10 ml BID DAO Administration Sodium Chloride 10 ml 03/12/19 07:56 Sodium Chloride Flush Syringe 10 Ml IV PRN PRN LINE FLUSH
--- NOTE | 2019-03-15 11:08 | Discharge Summary ---
Providers - Providers Date of Admission: 03/12/19 07:52 Attending physician: ROBERT SARGENT MD 03/12/19 06:37 Consult to Physician [CONS] Urgent Comment: Dr. Khan spoke with Dr. Hilton @ [id number] Consulting Provider: ADELSO MARIE Physician Instructions: Reason For Exam: esrd hyperkalemia 03/12/19 07:56 Consult to Dietitian/Nutrition [CONS] Routine Physician Instructions: Reason For Exam: Reason for Consult: Malnutrition 03/12/19 07:59 Consult to Physician [CONS] Routine Comment: Consulting Provider: GERARD MENSAH Physician Instructions: Reason For Exam: hyperkalemia, bradycardia 03/12/19 10:18 Consult to Physician [CONS] Routine Comment: Office notified @ 1210 Consulting Provider: ANAIS DAUGHERTY Physician Instructions: Reason For Exam: Fistulogram, persistent hyperkalemia Primary care physician: CHURN OPERATOR MARGARINE Hospitalization Reason for admission: hyperkalemia Condition: Stable Hospital course: 38-year-old man with a history of hypertension, tobacco dependancy, end-stage renal disease on dialysis Monday and Monday came to the emergency room following a week of missed dialysis and sent for evaluation of Hyperkalemia. Arrived via EMS. He denies physical pain at this time. He endorses generalized fatigue and muscle cramping. He denies headache, neck pain, chest pain, abdominal pain, shortness of breath, vomiting. According to the patient he missed dialysis due to family emergency. His portable pinch riveter is Dr. Marie On admission nephrology was consulted and patient underwent an emergent dialysis. There was also a request for vascular to evaluate patient's AV graft patient underwent successful insertion of catheter with fistulogram of brachioce phalic AV fistula right arm and balloon angioplasty of the peripheral dialysis circuit Findings: High-grade stenosis of the AV fistula near the arterial anastomosis of approximately 70% successfully relieved by balloon angioplasty, medical stenosis of the radial artery just proximal to the arterial anastomosis of at least 95% successfully relieved with balloon angioplasty. AV fistula function dr amatically improved. Fistula ready for cannulation. His BP was noted elevated, he had medication adjustment with noted improvement and is stable for discharge to follow with Nephrology. Extensive counseling was given to the patient about smoking cessation who verbalized understanding 50 minutes of counseling time was located done. Discharge diagnosis Severe Hyperkalemia--recurrent and resistant. Hypertensive urgency--resolved-BP at ESRD--Cont HD Non Complaince--Counselled again Tobacco dependance Bradycardia--better High gradde AV Fistula stenosis Hyponatremia Anemia Azotemia Metabolic Acidosis--Improved stable diastolic dysfunction last noted ef in 2017- 50-60% with severely dilated left atrium, mild dilated right atrim severe pulmonary hypertensio Disposition: DC-01 TO HOME OR SELFCARE Time spent for discharge: 35 mins Core Measure Documentation - Palliative Care Palliative Care/ Comfort Measures: Not Applicable - Core Measures Any of the following diagnoses?: none Exam - Physical Exam Narrative exam: VITAL SIGNS: Reviewed. GENERAL: The patient appeared well nourished and normally developed, Vital signs as documented. HEAD: No signs of head trauma. EYES: Pupils are equal. Extraocular motions intact. EARS: Hearing grossly intact. MOUTH: Oropharynx is normal. NECK: No adenopathy, no JVD. Mildly tender on the right side. CHEST: Chest with clear breath sounds bilaterally. No wheezes, rales, or rhonchi. CARDIAC: Regular rate and rhythm. S1 and S2, without murmurs, gallops, or rubs. VASCULAR: No Edema. Peripheral pulses normal and equal in all extremities. ABDOMEN: Soft, non tender and non distended. No rebound or guarding, and no masses palpated. Bowel Sounds normal. MUSCULOSKELETAL: Good range of motion of all major joints. Extremities without clubbing, cyanosis or edema. NEUROLOGIC EXAM: Alert and oriented x 3 No focal sensory or strength deficits. Speech normal. Follows commands. PSYCHIATRIC: Mood normal. SKIN: Upper extremity AV graft palpable through - Constitutional Vitals: Temp Pulse Resp BP Pulse Ox 98.8 F 87 20 167/117 96 03/14/19 22:14 03/15/19 09:10 03/15/19 06:44 03/15/19 09:10 03/15/19 06:44 Plan Activity: advance as tolerated, fall precautions Diet: renal Special Instructions: record daily weights, record daily BP diary Follow up with: VIANEY MO MD [Primary Care Provider] - 3-5 Days ROSAMARIA HILTON MD [Staff Physician] - 7 Days ANAIS DAUGHERTY MD [Staff Physician] - 7 Days Prescriptions: Clonidine HCl [Catapres] 0.3 mg PO TID #90 tablet Carvedilol [Coreg] 6.25 mg PO BID #60 tablet Losartan [Cozaar] 100 mg PO QDAY #30 tablet amLODIPine [Norvasc] 10 mg PO QDAY #30 tablet Famotidine [Pepcid] 10 mg PO BID #60 tablet Sevelamer Carbonate [Renvela] 1,600 mg PO AC #90 tablet
[2019-03-15 14:17] VITALS: BP 146/101
== END 2019-03-15 15:33 | disposition home or self-care (01) | DRG 252 ==
LOC: ED 05:51 → CC1 07:52 → 3A 21:30
PROVIDERS: ADMIT Internal Medicine; ATTEND Internal Medicine
PROC: 5A1D70Z Performance of Urinary Filtration, Intermittent, Less than 6 Hours Per Day (ICD-10-PCS; 2019-03-12)
PROC: 037B3ZZ Dilation of Right Radial Artery, Percutaneous Approach (ICD-10-PCS; principal; 2019-03-14)
PROC: 057D3ZZ Dilation of Right Cephalic Vein, Percutaneous Approach (ICD-10-PCS; 2019-03-14)
PROC: B51W1ZZ Fluoroscopy of Dialysis Shunt/Fistula using Low Osmolar Contrast (ICD-10-PCS; 2019-03-14)
PROC: B54MZZA Ultrasonography of Right Upper Extremity Veins, Guidance (ICD-10-PCS; 2019-03-14)
PROC: 5A1D70Z Performance of Urinary Filtration, Intermittent, Less than 6 Hours Per Day (ICD-10-PCS; 2019-03-14)
DX: T82.590A Other mechanical complication of surgically created arteriovenous fistula, initial encounter (principal); N18.6 End stage renal disease; I12.0 Hypertensive chronic kidney disease with stage 5 chronic kidney disease or end stage renal disease; E87.1 Hypo-osmolality and hyponatremia; E87.2 Acidosis; N25.81 Secondary hyperparathyroidism of renal origin; T82.858A Stenosis of other vascular prosthetic devices, implants and grafts, initial encounter; E87.5 Hyperkalemia; Y83.2 Surgical operation with anastomosis, bypass or graft as the cause of abnormal reaction of the patient, or of later complication, without mention of misadventure at the time of the procedure; F17.200 Nicotine dependence, unspecified, uncomplicated; I16.0 Hypertensive urgency; R00.1 Bradycardia, unspecified; D64.9 Anemia, unspecified; R79.89 Other specified abnormal findings of blood chemistry; I27.20 Pulmonary hypertension, unspecified; D63.1 Anemia in chronic kidney disease; Z91.19 Patient's noncompliance with other medical treatment and regimen; Y92.89 Other specified places as the place of occurrence of the external cause; Z71.89 Other specified counseling
CPT/HCPCS: 36415; 36902; 76937; 80048; 80053; 82550; 82962; 83735; 85025; 85027; 93005; 93010; 94640; 96374; G0378; C1725; C1769; C1894; J0360; J0610; J1644; J1815; J2250; J3010; J7030; J7040; Q9967

== ENCOUNTER 2021-08-12 06:38 | Observation (INO) | payer SELFPAY ==
[2021-08-12] MEDS ORDERED: cloNIDine 0.2 MG TAB PO ONE (07:36)
[2021-08-12] MEDS ORDERED: amLODIPine 5 MG TAB PO ONE (07:37)
--- NOTE | 2021-08-12 07:40 | Emergency Department Report ---
HPI - General Chief Complaint: Medical Clearance Time Seen by Provider: 08/12/21 07:13 - HPI HPI: 41-year-old male presents to the emergency department from dialysis with complaint of a low heart rate and elevated blood pressure that caused him not to be able to get dialysis. The patient gets hemodialysis on Monday//Monday and did receive dialysis on Monday, 2 days ago. He denies any fever, chest pain, shortness of breath, lower extremity swelling, but does complain of a 3-day history of a mixed dry and productive cough. Apparently patient's heart rate was in the 40s and, along with his elevated blood pressure, cause them to send him to the emergency department without dialysis. The patient takes amlodipine and clonidine for his hypertension but has not yet taken it today. The patient follows with [facility] nephrology. ED Past Medical Hx - Past Medical History Hx Hypertension: Yes Hx CVA: No Hx Heart Attack/AMI: No Hx Congestive Heart Failure: No (BNP >38707) Hx Diabetes: No Hx Deep Vein Thrombosis: No Hx Pulmonary Embolism: No (Pulmonary Edema) Hx GERD: No Hx Liver Disease: No Hx Renal Disease: Yes (ESRD, dialysis , , Mon) Hx Sickle Cell Disease: No Hx Arthritis: No Hx Headaches / Migraines: Yes Hx Seizures: No Hx Psychiatric Treatment: No Hx Asthma: No Hx COPD: No Hx Tuberculosis: No Hx Dementia: No Hx HIV: No Additional medical history: arianne meds. senispar, vit b complex, clonidine, lisinopril, minoxidil, norvask, ran- renal; kaexalate - Surgical History Hx Coronary Stent: No Hx Pacemaker: No Hx Internal Defibrillator: No Additional Surgical History: Left upper extremity fistula (no longer uses). Vas-Cath (right subclavicular) - Social History Smoking Status: Current Some Day Smoker - Medications Home Medications: Home Medications Medication Instructions Recorded Confirmed Last Taken Type Carvedilol [Coreg] 6.25 mg PO BID 03/12/19 03/12/19 Unknown History Sevelamer Carbonate [Renvela] 1,600 mg PO AC #90 tablet 03/13/19 Unknown Rx carvediloL [Coreg] 6.25 mg PO BID #60 tablet 03/13/19 Unknown Rx cloNIDine HCL [Catapres] 0.3 mg PO TID #90 tablet 03/13/19 Unknown Rx Famotidine [Pepcid] 10 mg PO BID #60 tablet 03/15/19 Unknown Rx Losartan [Cozaar] 100 mg PO QDAY #30 tablet 03/15/19 Unknown Rx amLODIPine 10 mg PO QDAY #30 tablet 03/15/19 Unknown Rx ED Review of Systems ROS: Stated complaint: SLOW HEART RATE Other details as noted in HPI Comment: All other systems reviewed and negative Constitutional: denies: chills, fever Eyes: denies: eye pain, vision change ENT: denies: ear pain, throat pain Respiratory: cough. denies: shortness of breath Cardiovascular: denies: chest pain, edema Gastrointestinal: denies: abdominal pain, vomiting Genitourinary: denies: dysuria, discharge Musculoskeletal: denies: back pain, arthralgia Skin: denies: rash, lesions Neurological: denies: headache, weakness Physical Exam - Physical Exam Vital Signs: Vital Signs 08/12/21 06:54 Temperature 97.8 F Pulse Rate 57 L Respiratory 18 Rate Blood Pressure 213/83 [Left] O2 Sat by Pulse 99 Oximetry Physical Exam: GENERAL: The patient is well-developed well-nourished. HENT: Normocephalic. Atraumatic. Patient has moist mucous membranes. EYES: Extraocular motions are intact. NECK: Supple. Trachea is midline. CHEST/LUNGS: Clear to auscultation. No cough heard during examination. There is no respiratory distress noted. HEART/CARDIOVASCULAR: Regular. There is mild bradycardia. There is no murmur. ABDOMEN: Abdomen is soft, nontender. Patient has normal bowel sounds. SKIN: Skin is warm and dry. NEURO: The patient is awake, alert, and oriented. The patient is cooperative. Normal speech. MUSCULOSKELETAL: There is no tenderness or deformity. There is no limitation range of motion. ED Course Vital Signs 08/12/21 06:54 Temperature 97.8 F Pulse Rate 57 L Respiratory 18 Rate Blood Pressure 213/83 [Left] O2 Sat by Pulse 99 Oximetry - Consultations Consultation #1: 08/12/21 08:[address] Marie, hand i thermal cutter on-call for [facility] nephrology. He is aware of the patient's consult and would like the patient admitted to the hospitalist service and they will arrange for dialysis this morning. ED Medical Decision Making - Lab Data Result diagrams: 08/12/21 07:32 08/12/21 07:32 Lab Results 08/12/21 08/12/21 Range/Units 07:32 07:32 WBC 6.6 (4.5-11.0) K/mm3 RBC 3.86 (3.65-5.03) M/mm3 Hgb 12.3 (11.8-15.2) gm/dl Hct 36.0 (35.5-45.6) % MCV 93 (84-94) fl MCH 32 (28-32) pg MCHC 34 (32-34) % RDW 13.6 (13.2-15.2) % Plt Count 152 (140-440) K/mm3 Lymph % (Auto) 17.3 (13.4-35.0) % [place] % (Auto) 7.2 (0.0-7.3) % Eos % (Auto) 13.7 H (0.0-4.3) % Baso % (Auto) 2.7 H (0.0-1.8) % Lymph # (Auto) 1.1 L (1.2-5.4) K/mm3 [place] # (Auto) 0.5 (0.0-0.8) K/mm3 Eos # (Auto) 0.9 H (0.0-0.4) K/mm3 Baso # (Auto) 0.2 H (0.0-0.1) K/mm3 Seg Neutrophils % 59.1 (40.0-70.0) % Seg Neutrophils # 3.9 (1.8-7.7) K/mm3 Sodium 134 L (137-145) mmol/L Potassium 6.2 H* (3.6-5.0) mmol/L Chloride 95.0 L (98-107) mmol/L Carbon Dioxide 23 (22-30) mmol/L Anion Gap 22 mmol/L BUN 43 H (9-20) mg/dL Creatinine 8.5 H (0.8-1.3) mg/dL Estimated GFR 7 ml/min BUN/Creatinine Ratio 5 % Glucose 96 (75-100) mg/dL Calcium 9.3 (8.4-10.2) mg/dL - Medical Decision Making This patient presented to the emergency department with uncontrolled blood pressure and some bradycardia at dialysis, and because of this he did not receive dialysis this morning. The patient does have significantly elevated blood pressure but did not take his blood pressure medications. He was given his amlodipine and Catapres with some improvement. Chest x-ray does not show any significant volume overload, pneumonia, or any other acute process. Labs shows renal insufficiency consistent with his end-stage renal disease, and hyperkalemia with a potassium of 6.2. Nephrology contacted and consulted. The patient will go for dialysis this morning. Accepted for admission by the hospitalist service. Critical Care Time: No Critical care attestation.: If time is entered above; I have spent that time in minutes in the direct care of this critically ill patient, excluding procedure time. ED Disposition Clinical Impression: ESRD needing dialysis, Hyperkalemia, Hypertensive urgency Disposition: ADMITTED INPATIENT Is pt being admited?: Yes Condition: Fair Time of Disposition: 08:43
[2021-08-12 07:47] LABS: Basophils # (Auto) 0.2 K/mm3 (0.0-0.1); Basophils % (Auto) 2.7 % (0.0-1.8); Eosinophils # (Auto) 0.9 K/mm3 (0.0-0.4); Eosinophils % (Auto) 13.7 % (0.0-4.3); Hemoglobin 12.3 gm/dl (11.8-15.2); Lymphocytes # (Auto) 1.1 K/mm3 (1.2-5.4); Lymphocytes % (Auto) 17.3 % (13.4-35.0); Mean Corpuscular HGB Conc 34 % (32-34); Mean Corpuscular Volume 93 fl (84-94); Monocytes # (Auto) 0.5 K/mm3 (0.0-0.8); Monocytes % (Auto) 7.2 % (0.0-7.3); Platelet Count 152 K/mm3 (140-440); Red Blood Count 3.86 M/mm3 (3.65-5.03); Red Cell Distribution Width 13.6 % (13.2-15.2)
[2021-08-12 08:03] LABS: Calcium 9.3 mg/dL (8.4-10.2)
--- NOTE | 2021-08-12 08:19 | XRay Report ---
CHEST 2 VIEWS INDICATION: Cough. COMPARISON: 10/16/2018 FINDINGS: Support devices: None. Heart: Heart size is at the upper limits of normal. Lungs/pleura: The lungs are clear. Central pulmonary edema has resolved since the previous exam. No pleural effusion or pneumothorax. Additional findings: None. IMPRESSION: No acute findings. Signer Name: Jorden Denis Jr, MD Signed: 08/12/2021 8:15 AM Workstation Name: [id number]
[2021-08-12] MEDS ORDERED: CALCIUM GLUCONATE 1,000 MG in SODIUM CHLORIDE 0.9% 100 ML IV ONE (09:00)
[2021-08-12] MEDS ORDERED: ACETAMINOPHEN 325 MG TAB PO PRN (09:25)
[2021-08-12] MEDS ORDERED: ONDANSETRON 4 MG/2 ML INJ IV PRN (09:25)
[2021-08-12] MEDS ORDERED: MORPHINE 4 MG/1 ML INJ IV PRN (09:25)
[2021-08-12] MEDS ORDERED: oxyCODONE /ACETAMINOPHEN 5-325MG TAB PO PRN (09:25)
--- NOTE | 2021-08-12 09:28 | History and Physical Report ---
History of Present Illness Date of examination: 08/12/21 Date of admission: 08/12/2021 Chief complaint: Elevated blood pressure and low heart rate prior to HD History of present illness: 41-year-old male with history of ES RD on HD and hypertension who presents with hypertension and bradycardia from dialysis center. The patient reports feeling well, besides slight weakness prior to admission. He said that upon vitals check at the dialysis center, his heart rate was too low and his blood pressure was too high to proceed. He denies lightheadedness, dizziness, chest pain, shortness of breath, and palpitations. He was referred to [facility] for further care. Lab findings on admission showed a potassium of 6.2, SCr 8.5. Chest x-ray was negative for acute findings. Nephrology was contacted for hemodialysis inpatient. The patient was placed on telemetry. Decision was made to admit patient for further work-up. Past History Past Medical History: hypertension Past Surgical History: Other (AVF fistula creation) Social history: smoking (1 cigar/day) Medications and Allergies Allergies Allergy/AdvReac Type Severity Reaction Status Date / Time cefazolin Allergy Severe Anaphylaxis Verified 08/12/21 06:54 Home Medications Medication Instructions Recorded Confirmed Last Taken Type Carvedilol [Coreg] 6.25 mg PO BID 03/12/19 03/12/19 Unknown History Sevelamer Carbonate [Renvela] 1,600 mg PO AC #90 tablet 03/13/19 Unknown Rx carvediloL [Coreg] 6.25 mg PO BID #60 tablet 03/13/19 Unknown Rx cloNIDine HCL [Catapres] 0.3 mg PO TID #90 tablet 03/13/19 Unknown Rx Famotidine [Pepcid] 10 mg PO BID #60 tablet 03/15/19 Unknown Rx Losartan [Cozaar] 100 mg PO QDAY #30 tablet 03/15/19 Unknown Rx amLODIPine 10 mg PO QDAY #30 tablet 03/15/19 Unknown Rx Active Meds: Active Medications Sodium Chloride (Nacl 0.9%) 100 mls @ 999 mls/hr IV TASHA PRN PRN Reason: Hypotension Review of Systems All systems: negative Exam - Physical Exam Narrative exam: GENERAL: Well-developed well-nourished. Lying in stretcher, no acute distress. HEENT: Normocephalic. Atraumatic. NECK: Supple. CHEST/LUNGS: CTAB on room air HEART/CARDIOVASCULAR: RRR. No murmur, rubs or gallops appreciated. ABDOMEN: +BS. NT/ND. NEURO: No focal motor deficit. Follows all commands. MUSCULOSKELETAL: No joint effusion EXTREMITIES: RUE fistula. No cyanosis, clubbing or edema. PSYCH: Cooperative. - Constitutional Vitals: Temp Pulse Resp BP Pulse Ox 97.8 F 81 18 166/96 99 08/12/21 06:54 08/12/21 08:15 08/12/21 06:54 08/12/21 08:15 08/12/21 06:54 Results - Labs CBC & Chem 7: 08/12/21 07:32 08/12/21 07:32 Labs: Laboratory Last Values WBC 6.6 K/mm3 (4.5-11.0) 08/12/21 07:32 RBC 3.86 M/mm3 (3.65-5.03) 08/12/21 07:32 Hgb 12.3 gm/dl (11.8-15.2) 08/12/21 07:32 Hct 36.0 % (35.5-45.6) 08/12/21 07:32 MCV 93 fl (84-94) 08/12/21 07:32 MCH 32 pg (28-32) 08/12/21 07:32 MCHC 34 % (32-34) 08/12/21 07:32 RDW 13.6 % (13.2-15.2) 08/12/21 07:32 Plt Count 152 K/mm3 (140-440) 08/12/21 07:32 Lymph % (Auto) 17.3 % (13.4-35.0) 08/12/21 07:32 [place] % (Auto) 7.2 % (0.0-7.3) 08/12/21 07:32 Eos % (Auto) 13.7 % (0.0-4.3) H 08/12/21 07:32 Baso % (Auto) 2.7 % (0.0-1.8) H 08/12/21 07:32 Lymph # (Auto) 1.1 K/mm3 (1.2-5.4) L 08/12/21 07:32 [place] # (Auto) 0.5 K/mm3 (0.0-0.8) 08/12/21 07:32 Eos # (Auto) 0.9 K/mm3 (0.0-0.4) H 08/12/21 07:32 Baso # (Auto) 0.2 K/mm3 (0.0-0.1) H 08/12/21 07:32 Seg Neutrophils % 59.1 % (40.0-70.0) 08/12/21 07:32 Seg Neutrophils # 3.9 K/mm3 (1.8-7.7) 08/12/21 07:32 Sodium 134 mmol/L (137-145) L 08/12/21 07:32 Potassium 6.2 mmol/L (3.6-5.0) H* 08/12/21 07:32 Chloride 95.0 mmol/L (98-107) L 08/12/21 07:32 Carbon Dioxide 23 mmol/L (22-30) 08/12/21 07:32 Anion Gap 22 mmol/L 08/12/21 07:32 BUN 43 mg/dL (9-20) H 08/12/21 07:32 Creatinine 8.5 mg/dL (0.8-1.3) H 08/12/21 07:32 Estimated GFR 7 ml/min 08/12/21 07:32 BUN/Creatinine Ratio 5 % 08/12/21 07:32 Glucose 96 mg/dL (75-100) 08/12/21 07:32 Calcium 9.3 mg/dL (8.4-10.2) 08/12/21 07:32 Assessment and Plan Assessment and plan: #Asymptomatic bradycardia -HR as low as 41, did improve to 81 -telemetry -Cardiology consult in the AM #Hyperkalemia -K 6.2 -will be corrected during HD today -will monitor while inpatient #ESRD on HD -TTS schedule -Nephrology following -HD today #Hypertensive urgency -BP 226/83 in ED -hx of hypertension, takes clonidine and amlodipine at home -will resume amlodipine Advance Directives: No VTE prophylaxis?: Chemical Plan of care discussed with patient/family: Yes
[2021-08-12] MEDS ORDERED: SODIUM CHLORIDE 0.9% 100 ML IV PRN (09:42)
--- NOTE | 2021-08-12 09:56 | Consultation ---
History of Present Illness - Reason for Consult Consult date: 08/12/21 end stage renal disease Requesting physician: ARY CLARKE - History of Present Illness 41-year-old male presents to the emergency department from dialysis with complaint of a low heart rate and elevated blood pressure that caused him not to be able to get dialysis. The patient gets hemodialysis on Monday//Monday and did receive dialysis on Monday, 2 days ago. He denies any fever, chest pain, shortness of breath, lower extremity swelling, but does complain of a 3-day history of a mixed dry and productive cough. Apparently patient's heart rate was in the 40s and, along with his elevated blood pressure, cause them to send him to the emergency department without dialysis. The patient takes amlodipine and clonidine for his hypertension but has not yet taken it today. The patient follows with [facility] nephrology. Patient is currently feeling well. Denies any shortness of breath. Patient seen in the emergency room Past History Past Medical History: dialysis, hypertension Past Surgical History: Other (History of creation of AV fistula) Social history: no significant social history Family history: no significant family history Medications and Allergies Allergies Allergy/AdvReac Type Severity Reaction Status Date / Time cefazolin Allergy Severe Anaphylaxis Verified 08/12/21 06:54 Home Medications Medication Instructions Recorded Confirmed Last Taken Type Carvedilol [Coreg] 6.25 mg PO BID 03/12/19 03/12/19 Unknown History Sevelamer Carbonate [Renvela] 1,600 mg PO AC #90 tablet 03/13/19 Unknown Rx carvediloL [Coreg] 6.25 mg PO BID #60 tablet 03/13/19 Unknown Rx cloNIDine HCL [Catapres] 0.3 mg PO TID #90 tablet 03/13/19 Unknown Rx Famotidine [Pepcid] 10 mg PO BID #60 tablet 03/15/19 Unknown Rx Losartan [Cozaar] 100 mg PO QDAY #30 tablet 03/15/19 Unknown Rx amLODIPine 10 mg PO QDAY #30 tablet 03/15/19 Unknown Rx Active Meds: Active Medications Acetaminophen (Acetaminophen 325 Mg Tab) 650 mg PO Q4H PRN PRN Reason: Pain MILD(1-3)/Fever >100.5/[place] Sodium Chloride (Nacl 0.9%) 100 mls @ 999 mls/hr IV TASHA PRN PRN Reason: Hypotension Morphine Sulfate (Morphine 4 Mg/1 Ml Inj) 4 mg IV Q4H PRN PRN Reason: Pain , Severe (7-10) Ondansetron HCl (Ondansetron 4 Mg/2 Ml Inj) 4 mg IV Q8H PRN PRN Reason: Nausea And Vomiting Oxycodone/Acetaminophen (Oxycodone /Acetaminophen 5-325mg Tab) 1 tab PO Q6H PRN PRN Reason: Pain, Moderate (4-6) Sodium Chloride (Sodium Chloride 0.9% 10 Ml Flush Syringe) 10 ml IV BID DAO Last Admin: 08/12/21 09:43 Dose: 10 ml Documented by: Sodium Chloride (Sodium Chloride 0.9% 10 Ml Flush Syringe) 10 ml IV PRN PRN PRN Reason: LINE FLUSH Review of Systems All systems: negative (Negative except as noted above) Exam - Vital Signs Vital signs: Vital Signs Temp Pulse Resp BP Pulse Ox 97.8 F 57 L 18 213/83 99 08/12/21 06:54 08/12/21 06:54 08/12/21 06:54 08/12/21 06:54 08/12/21 06:54 - General Appearance General appearance: well-developed, well-nourished, appears stated age EENT: PERRL, mucous membranes moist Neck: Present: neck supple, trachea midline. Absent: JVD/HJR, Masses Respiratory: Clear to Ascultation Heart: regular, normal heart rate, S1S2, no murmurs Gastrointestinal: Present: normal. Absent: tenderness, distended, masses, guarding Integumentary: other (No edema. AV fistula right forearm. Good bruit and thrill.) Results - Lab Results 08/12/21 07:32 08/12/21 07:32 Most recent lab results Calcium 9.3 mg/dL (8.4-10.2) 08/12/21 07:32 Assessment and Plan Impression * End-stage renal disease on maintenance hemodialysis * Accelerated hypertension * Hyperkalemia * Bradycardia * Anemia secondary to ESRD Recommendations * Shall arrange for hemodialysis treatment first shift this morning. Hopefully his hyperkalemia will be corrected * If his blood pressure still elevated after dialysis, would need to adjust his antihypertensive medications * Avoid nephrotoxins * Monitor fluid status and electrolytes closely * No IV, BP or venipuncture in his access arm * Adjust diet and meds for ESRD state * Avoid nephrotoxins * Epogen once his blood pressures under better control * Thank you very much for the consultation. Shall follow along with you
[2021-08-12 12:38] LABS: Hepatitis C Virus Antibody Non-Reactive (NonReactive)
[2021-08-12 12:57] LABS: Hepatitis B Surface Antigen Nonreactive (Negative)
[2021-08-13 02:44] LABS: Chol/HDL Ratio 3.93 %
[2021-08-13 06:51] LABS: Calcium 9.6 mg/dL (8.4-10.2)
[2021-08-13] MEDS ORDERED: NIFEdipine XL 30 MG TAB PO SCH (10:00)
[2021-08-13] MEDS ORDERED: LOSARTAN 50 MG TAB PO SCH (10:00)
[2021-08-13] MEDS: SEVELAMER CARBONATE 800 MG TAB PO SCH ×2 (11:19→16:59)
--- NOTE | 2021-08-13 13:18 | Consultation ---
History of Present Illness Consult date: 08/13/21 Consult reason: bradycardia History of present illness: The patient is a 41-year-old man with history of end-stage renal disease on hemodialysis and chronic hypertension. Among his antihypertensive therapy includes carvedilol 6.25 mg twice daily, and clonidine 0.3 mg 3 times daily. He was admitted to the hospital after he was noted with bradycardia while undergoing hemodialysis session. The heart rate was said to have been in the 40s. He was brought to the emergency room, evaluated and referred for admission. The patient however has no chest pain, no shortness of breath, no dizziness, fatigue or palpitations. No syncope was reported. Additional findings on presentation was a potassium of 6.2. Today, he is in normal sinus rhythm at 61. His carvedilol was held but the clonidine is still ongoing at 0.3 mg 3 times daily. Review of his records does not reveal any significant prior cardiac history. An echocardiogram done 3 years ago showed normal left ventricular systolic function, ejection fraction 55 to 60%. He was found with moderate to severe pulmonary hypertension with a pulmonary artery systolic pressure of 67. Past History Past Medical History: ESRD, hypertension Past Surgical History: Other (AVF fistula creation) Social history: smoking (1 cigar/day) Family history: no significant family history Medications and Allergies Allergies Allergy/AdvReac Type Severity Reaction Status Date / Time cefazolin Allergy Severe Anaphylaxis Verified 08/12/21 06:54 Home Medications Medication Instructions Recorded Confirmed Last Taken Type Carvedilol [Coreg] 6.25 mg PO BID 03/12/19 08/12/21 Unknown History Sevelamer Carbonate [Renvela] 1,600 mg PO AC #90 tablet 03/13/19 08/12/21 08/11/21 19:30 Rx 1,600 mg carvediloL [Coreg] 6.25 mg PO BID #60 tablet 03/13/19 08/12/21 Unknown Rx cloNIDine HCL [Catapres] 0.3 mg PO TID #90 tablet 03/13/19 08/12/21 08/11/21 20:00 Rx mg Famotidine [Pepcid] 10 mg PO BID #60 tablet 03/15/19 08/12/21 Unknown Rx Losartan [Cozaar] 100 mg PO QDAY #30 tablet 03/15/19 08/12/21 Unknown Rx amLODIPine 10 mg PO QDAY #30 tablet 03/15/19 08/12/21 Unknown Rx Active Meds: Active Medications Acetaminophen (Acetaminophen 325 Mg Tab) 650 mg PO Q4H PRN PRN Reason: Pain MILD(1-3)/Fever >100.5/[place] Sodium Chloride (Nacl 0.9%) 100 mls @ 999 mls/hr IV TASHA PRN PRN Reason: Hypotension Losartan Potassium (Losartan 50 Mg Tab) 100 mg PO QDAY [facility] Last Admin: 08/13/21 11:18 Dose: 100 mg Documented by: Morphine Sulfate (Morphine 4 Mg/1 Ml Inj) 4 mg IV Q4H PRN PRN Reason: Pain , Severe (7-10) Nifedipine (Nifedipine Xl 30 Mg Tab) 30 mg PO Q12HR [facility] Last Admin: 08/13/21 11:17 Dose: 30 mg Documented by: Ondansetron HCl (Ondansetron 4 Mg/2 Ml Inj) 4 mg IV Q8H PRN PRN Reason: Nausea And Vomiting Oxycodone/Acetaminophen (Oxycodone /Acetaminophen 5-325mg Tab) 1 tab PO Q6H PRN PRN Reason: Pain, Moderate (4-6) Sevelamer Carbonate (Sevelamer Carbonate 800 Mg Tab) 1,600 mg PO AC [facility] Last Admin: 08/13/21 11:19 Dose: 1,600 mg Documented by: Sodium Chloride (Sodium Chloride 0.9% 10 Ml Flush Syringe) 10 ml IV BID [facility] Last Admin: 08/13/21 11:19 Dose: 10 ml Documented by: Sodium Chloride (Sodium Chloride 0.9% 10 Ml Flush Syringe) 10 ml IV PRN PRN PRN Reason: LINE FLUSH Review of Systems Cardiovascular: no chest pain, no orthopnea, no palpitations, no rapid/irregular heart beat, no edema, no syncope, no lightheadedness, no shortness of breath Physical Examination Vital Signs Temp Pulse Resp BP Pulse Ox 97.8 F 57 L 18 213/83 99 08/12/21 06:54 08/12/21 06:54 08/12/21 06:54 08/12/21 06:54 08/12/21 06:54 General appearance: no acute distress HEENT: Positive: PERRL Neck: Positive: neck supple Cardiac: Positive: Reg Rate and Rhythm Lungs: Positive: Decreased Breath Sounds Neuro: Positive: Grossly Intact Abdomen: Positive: Soft Male genitourinary: Positive: deferred Extremities: Absent: edema Results 08/12/21 07:32 08/13/21 05:10 Lipids 08/13/21 Range/Units 01:25 Triglycerides 156 H (2-149) mg/dL Cholesterol 181 (50-199) mg/dL HDL Cholesterol 46 (40-59) mg/dL Cholesterol/HDL Ratio 3.93 % Comprehensive Metabolic Panel 08/13/21 Range/Units 05:10 Sodium 137 (137-145) mmol/L Potassium 4.5 D (3.6-5.0) mmol/L Chloride 94.9 L (98-107) mmol/L Carbon Dioxide 25 (22-30) mmol/L BUN 26 H (9-20) mg/dL Creatinine 5.6 H (0.8-1.3) mg/dL Glucose 84 (75-100) mg/dL Calcium 9.6 (8.4-10.2) mg/dL EKG interpretations - Telemetry EKG Rhythm: Sinus Bradycardia Assessment and Plan - Patient Problems (1) Bradycardia Current Visit: Yes Status: Acute Plan to address problem: The patient's reported bradycardia is likely iatrogenic, on a combination therapy with carvedilol and high-dose clonidine. Will recommend discontinue both of these medications. For his hypertension, I would recommend Procardia XL 30 mg twice daily, and also discontinue atenolol. Otherwise, no further cardiac work-up is indicated for iatrogenic bradycardia. We will follow intermittently.
[2021-08-13] MEDS ORDERED: cloNIDine 0.2 MG TAB PO SCH (14:00)
[2021-08-13] MEDS ORDERED: cloNIDine 0.1 MG TAB PO SCH (14:00)
--- NOTE | 2021-08-13 14:10 | Discharge Summary ---
Providers - Providers Date of Admission: 08/12/21 09:25 Date of discharge: 08/13/21 Attending physician: BREANNA JOHNSON MD 08/12/21 08:32 Consult to Physician [CONS] Routine Comment: Consulting Provider: ADELSO HARO Physician Instructions: Reason For Exam: ESRD needing dialysis, hyperkalemia 08/13/21 09:03 Consult to Physician [CONS] Routine Comment: Consulting Provider: MUKESH SPENCER Physician Instructions: Reason For Exam: asymptomatic bradycardia Primary care physician: WASHATERIA ATTENDANT Hospitalization Reason for admission: low heart rate Condition: Fair Hospital course: 41-year-old male with history of ESRD on HD and hypertension who presented with hypotension bradycardia cardia from dialysis center. He was admitted for further work-up. Labs notable for potassium of 6.2 and SCR 2.5. Nephrology was consulted for hemodialysis inpatient. Blood pressure medications were stopped as believed to be because of bradycardia. Cardiology was consulted. Bradycardia resolved. Patient was discharged home when stable. Disposition: 01 HOME / SELF CARE / HOMELESS Final Discharge Diagnosis (Prints w/discharge instructions): Asymptomatic bradycardia. Hyperkalemia. Hypertensive urgency Time spent for discharge: 10 minutes Core Measure Documentation - Palliative Care Palliative Care/ Comfort Measures: Not Applicable - Core Measures Any of the following diagnoses?: none Exam - Physical Exam Narrative exam: GENERAL: Well-developed well-nourished. Lying in stretcher, no acute distress. CHEST/LUNGS: CTAB on room air HEART/CARDIOVASCULAR: RRR. No murmur, rubs or gallops appreciated. ABDOMEN: +BS. NT/ND. NEURO: No focal motor deficit. Follows all commands. MUSCULOSKELETAL: No joint effusion EXTREMITIES: RUE fistula. No cyanosis, clubbing or edema. PSYCH: Cooperative. - Constitutional Vitals: Temp Pulse Resp BP Pulse Ox 97.7 F 54 L 18 171/111 99 08/13/21 11:11 08/13/21 11:18 08/13/21 11:11 08/13/21 11:18 08/13/21 11:11 Plan Care Plan Goals: Please stop taking carvedilol, clonidine and atenolol. These medications can cause low heart rate. Please follow-up with your primary care doctor for blood pressure monitoring. Continue dialysis Monday, , Monday schedule. Assessment: Stable. Potassium improved after dialysis. Heart rate remained in the 50s to 40s while inpatient. Cardiology consulted and recommended discontinuation of some home medications that can cause bradycardia. Patient discharged with up-to-date antihypertensive medications. Follow up with: PRIMARY CARE, [Primary Care Provider] - 3-5 Days Prescriptions: NIFEdipine XL [Procardia Xl] 30 mg PO Q12HR 30 Days #60 tablet
--- NOTE | 2021-08-13 15:10 | Progress Note ---
Assessment and Plan Impression * End-stage renal disease on maintenance hemodialysis * Accelerated hypertension * Hyperkalemia * Bradycardia * Anemia secondary to ESRD Recommendations * Patient had uneventful hemodialysis yesterday. * Hyperkalemia has been corrected * Bradycardia is also better. Cardiology notes appreciated * His blood pressure still elevated. Add hydralazine to his medication regimen * Avoid nephrotoxins * Monitor fluid status and electrolytes closely * No IV, BP or venipuncture in his access arm * Adjust diet and meds for ESRD state * Avoid nephrotoxins Subjective Date of service: 08/13/21 Interval history: Patient is comfortable today. Uneventful hemodialysis yesterday. Denies any shortness of breath. Objective - Vital Signs Vital signs: Vital Signs - 12hr 08/13/21 08/13/21 08/13/21 05:33 11:11 11:18 Temperature 98.6 F 97.7 F Pulse Rate 51 L 56 L 54 L Respiratory 18 18 Rate Blood Pressure 141/94 171/111 171/111 O2 Sat by Pulse 97 99 Oximetry - General Appearance General appearance: well-developed, well-nourished, appears stated age EENT: PERRL, mucous membranes moist Neck: no JVD, no thyromegaly, no carotid bruit, supple Respiratory: Present: Clear to Ascultation Cardiology: regular, normal heart rate Gastrointestinal: normal, normoactive bowel sounds Integumentary: other (No edema. AV fistula in his forearm. Good bruit and thrill.) - Lab 08/12/21 07:32 08/13/21 05:10 Most recent lab results Calcium 9.6 mg/dL (8.4-10.2) 08/13/21 05:10 Medications & Allergies - Medications Allergies/Adverse Reactions: Allergies cefazolin Allergy (Severe, Verified 08/12/21 06:54) Anaphylaxis Home Medications: Home Medications Medication Instructions Recorded Confirmed Last Taken Type Sevelamer Carbonate [Renvela] 1,600 mg PO AC #90 tablet 03/13/19 08/12/21 08/11/21 19:30 Rx 1,600 mg Famotidine [Pepcid] 10 mg PO BID #60 tablet 03/15/19 08/12/21 Unknown Rx Losartan [Cozaar] 100 mg PO QDAY #30 tablet 03/15/19 08/12/21 Unknown Rx Losartan [Cozaar] 100 mg PO QDAY tablet 08/13/21 Unknown Rx NIFEdipine XL [Procardia Xl] 30 mg PO Q12HR 30 Days #60 tablet 08/13/21 Unknown Rx Sevelamer Carbonate [Renvela] 1,600 mg PO AC tablet 08/13/21 Unknown Rx Active Medications: Generic Name Dose Route Start Last Admin Trade Name Freq PRN Reason Stop Dose Admin Acetaminophen 650 mg 08/12/21 09:25 Acetaminophen 325 Mg Tab PO Q4H PRN Pain MILD(1-3)/Fever >100.5/HOLLEY Sodium Chloride 100 mls @ 999 mls/hr 08/12/21 09:42 Nacl 0.9% IV TASHA PRN Hypotension Losartan Potassium 100 mg 08/13/21 10:00 08/13/21 11:18 Losartan 50 Mg Tab PO 100 mg QDAY DAO Administration Morphine Sulfate 4 mg 08/12/21 09:25 Morphine 4 Mg/1 Ml Inj IV Q4H PRN Pain , Severe (7-10) Nifedipine 30 mg 08/13/21 10:00 08/13/21 11:17 Nifedipine Xl 30 Mg Tab PO 30 mg Q12HR DAO Administration Ondansetron HCl 4 mg 08/12/21 09:25 Ondansetron 4 Mg/2 Ml Inj IV Q8H PRN Nausea And Vomiting Oxycodone/Acetaminophen 1 tab 08/12/21 09:25 Oxycodone /Acetaminophen 5-325mg Tab PO Q6H PRN Pain, Moderate (4-6) Sevelamer Carbonate 1,600 mg 08/13/21 11:30 08/13/21 11:19 Sevelamer Carbonate 800 Mg Tab PO 1,600 mg AC DAO Administration Sodium Chloride 10 ml 08/12/21 10:00 08/13/21 11:19 Sodium Chloride 0.9% 10 Ml Flush Syringe IV 10 ml BID DAO Administration Sodium Chloride 10 ml 08/12/21 09:25 Sodium Chloride 0.9% 10 Ml Flush Syringe IV PRN PRN LINE FLUSH
[2021-08-13 17:02] VITALS: BP 175/120
[2021-08-13] MEDS ORDERED: hydrALAZINE 25 MG TAB PO ONE (19:00)
[2021-08-13] MEDS ORDERED: hydrALAZINE 25 MG TAB PO SCH (22:00)
--- NOTE | 2021-08-18 14:42 | Electrocardiograph Report ---
[facility] Test Date: 2021-08-13 Test Time: 00:21:25 Pat Name: TRAVIS COLON Department: Room: A385 1 Gender: M Top Lifter: CCU NURSE : 1980 Requested By: BREANNA JOHNSON Order Number: [id number] Reading MD: Shayla Weaver Measurements Intervals [place] Rate: 52 P: 49 RI: 176 QRS: 43 QRSD: 110 T: 78 QT: 525 QTc: 491 Interpretive Statements Sinus bradycardia LVH with IVCD and secondary repol abnrm Borderline inferior Q waves Anterior ST elevation, probably due to LVH No previous ECG available for comparison Electronically Signed On 08-18-2021 14:42:22 EDT by Shayla Weaver
== END 2021-08-13 18:57 | disposition home or self-care (01) ==
LOC: ED 06:38 → 3A 09:25
PROVIDERS: ADMIT Student in an Organized Health Care Education/Training Program; ATTEND Student in an Organized Health Care Education/Training Program
DX: I16.0 Hypertensive urgency (principal); N18.6 End stage renal disease; E87.5 Hyperkalemia; G43.909 Migraine, unspecified, not intractable, without status migrainosus; D63.1 Anemia in chronic kidney disease; R00.1 Bradycardia, unspecified; F17.210 Nicotine dependence, cigarettes, uncomplicated; Z99.2 Dependence on renal dialysis
CPT/HCPCS: 36415; 71046; 80048; 80061; 80074; 84484; 85025; 93005; 96365; 99284; 99406; G0257; G0378; J0610

== ENCOUNTER 2021-10-26 02:01 | Inpatient (IN) | payer SELFPAY ==
[2021-10-26] MEDS ORDERED: ASPIRIN 81 MG TAB CHEW PO ONE (02:19)
[2021-10-26] MEDS ORDERED: MORPHINE 4 MG/1 ML INJ IV ONE (02:20)
[2021-10-26] MEDS ORDERED: hydrALAZINE 20 MG/1 ML INJ IV ONE (02:20)
[2021-10-26] MEDS ORDERED: ONDANSETRON 4 MG/2 ML INJ IV ONE (02:20)
--- NOTE | 2021-10-26 02:25 | Emergency Department Report ---
ED General Adult HPI - General Stated complaint: HYPERTENSION/CHEST PAIN Time Seen by Provider: 10/26/21 02:15 - History of Present Illness Initial comments: Patient is 41 years old male with history of end-stage renal disease on hemodialysis. Patient brought to the emergency room via EMS for evaluation of elevated blood pressure and chest pain. Patient stated that he missed his dialysis on Monday and yesterday. Patient describes his chest pain as pressure 10 out of 10 with no radiation. He denied any shortness of breath. Patient also denied any fever chills or cough. No nausea or vomiting. - Related Data Previous Rx's Medication Instructions Recorded Last Taken Type Sevelamer Carbonate [Renvela] 1,600 mg PO AC #90 tablet 03/13/19 08/11/21 19:30 Rx 1,600 mg Famotidine [Pepcid] 10 mg PO BID #60 tablet 03/15/19 Unknown Rx Losartan [Cozaar] 100 mg PO QDAY #30 tablet 03/15/19 Unknown Rx Losartan [Cozaar] 100 mg PO QDAY tablet 08/13/21 Unknown Rx NIFEdipine XL [Procardia Xl] 30 mg PO Q12HR 30 Days #60 tablet 08/13/21 Unknown Rx Sevelamer Carbonate [Renvela] 1,600 mg PO AC tablet 08/13/21 Unknown Rx Allergies Allergy/AdvReac Type Severity Reaction Status Date / Time cefazolin Allergy Severe Anaphylaxis Verified 10/26/21 02:29 ED Review of Systems ROS: Stated complaint: HYPERTENSION/CHEST PAIN Other details as noted in HPI Comment: All other systems reviewed and negative Constitutional: denies: chills, fever Respiratory: denies: cough, shortness of breath, SOB with exertion, SOB at rest Cardiovascular: chest pain. denies: palpitations, dyspnea on exertion Gastrointestinal: denies: abdominal pain, nausea, vomiting, diarrhea, constipation, hematemesis, melena Musculoskeletal: denies: back pain Neurological: denies: headache, weakness ED Past Medical Hx - Past Medical History Hx Hypertension: Yes Hx CVA: No Hx Heart Attack/AMI: No Hx Congestive Heart Failure: No (BNP >21148) Hx Diabetes: No Hx Deep Vein Thrombosis: No Hx Pulmonary Embolism: No (Pulmonary Edema) Hx GERD: No Hx Liver Disease: No Hx Renal Disease: Yes (ESRD, dialysis T, , Mon) Hx Sickle Cell Disease: No Hx Arthritis: No Hx Headaches / Migraines: Yes Hx Seizures: No Hx Psychiatric Treatment: No Hx Asthma: No Hx COPD: No Hx Tuberculosis: No Hx Dementia: No Hx HIV: No Additional medical history: arianne meds. senispar, vit b complex, clonidine, lisinopril, minoxidil, norvask, ran- renal; kaexalate - Surgical History Hx Coronary Stent: No Hx Pacemaker: No Hx Internal Defibrillator: No Additional Surgical History: Left upper extremity fistula (no longer uses). Vas-Cath (right subclavicular) - Social History Smoking Status: Current Every Day Smoker - Medications Home Medications: Home Medications Medication Instructions Recorded Confirmed Last Taken Type Sevelamer Carbonate [Renvela] 1,600 mg PO AC #90 tablet 03/13/19 08/12/21 08/11/21 19:30 Rx 1,600 mg Famotidine [Pepcid] 10 mg PO BID #60 tablet 03/15/19 08/12/21 Unknown Rx Losartan [Cozaar] 100 mg PO QDAY #30 tablet 03/15/19 08/12/21 Unknown Rx Losartan [Cozaar] 100 mg PO QDAY tablet 08/13/21 Unknown Rx NIFEdipine XL [Procardia Xl] 30 mg PO Q12HR 30 Days #60 tablet 08/13/21 Unknown Rx Sevelamer Carbonate [Renvela] 1,600 mg PO AC tablet 08/13/21 Unknown Rx ED Physical Exam - General General appearance: alert, in no apparent distress - Head Head exam: Present: atraumatic, normocephalic, normal inspection - Eye Eye exam: Present: normal appearance - ENT ENT exam: Present: normal exam, normal orophraynx, mucous membranes moist - Neck Neck exam: Present: normal inspection, full ROM. Absent: tenderness, meningismus - Respiratory Respiratory exam: Present: normal lung sounds bilaterally - Cardiovascular Cardiovascular Exam: Present: regular rate, normal rhythm, normal heart sounds - GI/Abdominal GI/Abdominal exam: Present: soft, normal bowel sounds. Absent: distended, tenderness, guarding, rebound, rigid, organomegaly, mass, bruit, pulsatile mass, hernia - Extremities Exam Extremities exam: Present: normal inspection - Back Exam Back exam: Present: normal inspection, full ROM. Absent: CVA tenderness (R), CVA tenderness (L) - Neurological Exam Neurological exam: Present: alert, oriented X3, CN II-XII intact - Psychiatric Psychiatric exam: Present: normal mood - Skin Skin exam: Present: warm, intact, normal color ED Course Vital Signs 10/26/21 10/26/21 10/26/21 02:16 02:27 02:30 Temperature 98.0 F Pulse Rate 83 79 Respiratory 28 H 26 H Rate Blood Pressure 205/131 Blood Pressure 199/128 [Left] O2 Sat by Pulse 100 100 100 Oximetry 10/26/21 10/26/21 02:40 02:45 Temperature Pulse Rate 80 82 Respiratory 22 Rate Blood Pressure 205/131 199/125 Blood Pressure [Left] O2 Sat by Pulse 100 Oximetry ED Medical Decision Making - Lab Data Result diagrams: 10/26/21 02:23 10/26/21 02:23 - Radiology Data Radiology results: report reviewed - Medical Decision Making Patient is 41 years old male with history of end-stage renal disease on hemodialysis. Patient brought to the emergency room via EMS for evaluation of elevated blood pressure and chest pain. Patient stated that he missed his dialysis on Monday and yesterday. Patient describes his chest pain as pressure 10 out of 10 with no radiation. He denied any shortness of breath. Patient also denied any fever chills or cough. No nausea or vomiting. Patient found to be significantly hypertensive with a blood pressure of 210/130. Patient received morphine, Zofran, hydralazine. Blood pressure improved. Chest x-ray showed pulmonary edema. Labs reviewed and showed a potassium of 6.4. Patient received albuterol, calcium chloride, insulin and dextrose. I discussed the patient with Dr. Lowry, inbound telemarketer on-call for the patient he stated that he will put dialysis order. Discussed the patient with Dr. Butler, he agreed to admit the patient to medical service for further management. Critical Care Time: Yes Critical care time in (mins) excluding proc time.: 35 Critical care attestation.: If time is entered above; I have spent that time in minutes in the direct care of this critically ill patient, excluding procedure time. ED Disposition Clinical Impression: Volume overload, Acute hyperkalemia, Hypertensive emergency, End-stage renal disease needing dialysis Disposition: 02 SHORT TERM HOSPITAL Is pt being admited?: Yes Condition: Stable Instructions: Hypertension (ED)
[2021-10-26 02:54] LABS: Basophils # (Auto) 0.1 K/mm3 (0.0-0.1); Eosinophils # (Auto) 0.1 K/mm3 (0.0-0.4); Eosinophils % (Auto) 1.2 % (0.0-4.3); Hematocrit 23.2 % (35.5-45.6); Hemoglobin 7.7 gm/dl (11.8-15.2); Lymphocytes # (Auto) 0.8 K/mm3 (1.2-5.4); Lymphocytes % (Auto) 9.1 % (13.4-35.0); Mean Corpuscular HGB Conc 33 % (32-34); Mean Corpuscular Volume 94 fl (84-94); Monocytes # (Auto) 0.5 K/mm3 (0.0-0.8); Platelet Count 171 K/mm3 (140-440); Red Blood Count 2.48 M/mm3 (3.65-5.03); Red Cell Distribution Width 14.8 % (13.2-15.2)
--- NOTE | 2021-10-26 03:00 | XRay Report ---
CHEST 1 VIEW 10/26/2021 1:44 AM INDICATION / CLINICAL INFORMATION: Chest Pain. COMPARISON: 09/26/2021 FINDINGS: SUPPORT DEVICES: None. HEART / MEDIASTINUM: No significant abnormality. LUNGS / PLEURA: Perihilar opacities with pulmonary vascular indistinctness. No pneumothorax. ADDITIONAL FINDINGS: No significant additional findings. IMPRESSION: 1. Moderate pulmonary edema. Signer Name: Jaren June DO Signed: 10/26/2021 2:55 AM Workstation Name: [id number]
[2021-10-26 03:06] LABS: INR 0.95 (0.87-1.13)
[2021-10-26 03:07] LABS: Partial Thromboplastin Time 38.2 Sec. (24.2-36.6)
[2021-10-26 03:11] LABS: Calcium 9.8 mg/dL (8.4-10.2)
[2021-10-26] MEDS ORDERED: ALBUTEROL 2.5 MG/3 ML NEBU IH ONE (03:18)
[2021-10-26] MEDS ORDERED: CALCIUM CHLORIDE 1,000 MG in SODIUM CHLORIDE 0.9% 100 ML IV ONE (03:18)
[2021-10-26] MEDS ORDERED: INSULIN REGULAR, HUMAN 100 UNITS/1 ML IV ONE (03:19)
[2021-10-26] MEDS ORDERED: DEXTROSE 50% IN WATER (25GM) 50 ML SYRINGE IV ONE (03:19)
[2021-10-26 03:43] LABS: Chol/HDL Ratio 3.03 %
[2021-10-26] MEDS ORDERED: ACETAMINOPHEN 325 MG TAB PO PRN ×2 (04:45)
[2021-10-26] MEDS ORDERED: MORPHINE 2 MG/1 ML INJ IV PRN (04:45)
[2021-10-26] MEDS ORDERED: ONDANSETRON 4 MG/2 ML INJ IV PRN (04:45)
[2021-10-26] MEDS ORDERED: traMADol 50 MG TAB PO PRN (04:45)
[2021-10-26] MEDS ORDERED: ALBUTEROL 2.5 MG/3 ML NEBU IH PRN (04:45)
[2021-10-26] MEDS ORDERED: HYDROmorphone 1 MG/1 ML INJ IV PRN (04:45)
[2021-10-26] MEDS ORDERED: NITROGLYCERIN 0.4 MG TAB SUBL SL PRN (04:45)
--- NOTE | 2021-10-26 04:54 | History and Physical Report ---
History of Present Illness Date of examination: 10/26/21 Date of admission: 10/26/21 Chief complaint: Chest pain High blood pressure History of present illness: 41 years old male with history of end-stage renal disease on hemodialysis was brought to the emergency room via EMS for evaluation of elevated blood pressure and chest pain. Patient missed his dialysis on Monday and yesterday. Patient describes his chest pain as pressure 10 out of 10 with no radiation. He denied any shortness of breath. Patient also denied any fever chills or cough. No nausea or vomiting. In the emergency room patient is found to have potassium of 6.4, BUN of 60 and creatinine 11.5 and troponin 0 0.575. Chest x-ray shows moderate pulmonary edema. Patient received albuterol, calcium chloride, insulin and dextrose. discussed with Dr. Lowry, biofuels production associate on-call for the patient he stated that he will put dialysis order. Past History Past Medical History: ESRD, hypertension, migraines, renal failure, other (Headache migraine) Medications and Allergies Allergies Allergy/AdvReac Type Severity Reaction Status Date / Time cefazolin Allergy Severe Anaphylaxis Verified 10/26/21 02:29 Home Medications Medication Instructions Recorded Confirmed Last Taken Type Sevelamer Carbonate [Renvela] 1,600 mg PO AC #90 tablet 03/13/19 08/12/21 08/11/21 19:30 Rx 1,600 mg Famotidine [Pepcid] 10 mg PO BID #60 tablet 03/15/19 08/12/21 Unknown Rx Losartan [Cozaar] 100 mg PO QDAY #30 tablet 03/15/19 08/12/21 Unknown Rx Losartan [Cozaar] 100 mg PO QDAY tablet 08/13/21 Unknown Rx NIFEdipine XL [Procardia Xl] 30 mg PO Q12HR 30 Days #60 tablet 08/13/21 Unknown Rx Sevelamer Carbonate [Renvela] 1,600 mg PO AC tablet 08/13/21 Unknown Rx Review of Systems All systems: negative Cardiovascular: chest pain, shortness of breath Respiratory: shortness of breath Exam - Constitutional Vitals: Temp Pulse Resp BP Pulse Ox 98.0 F 82 16 180/108 100 10/26/21 02:27 10/26/21 04:15 10/26/21 04:15 10/26/21 04:15 10/26/21 04:15 General appearance: Present: no acute distress, well-nourished - EENT Eyes: Present: PERRL ENT: hearing intact, clear oral mucosa - Neck Neck: Present: supple, normal ROM - Respiratory Respiratory effort: normal Respiratory: bilateral: CTA - Cardiovascular Heart Sounds: Present: S1 & S2. Absent: rub, click - Extremities Extremities: pulses symmetrical, No edema Peripheral Pulses: within normal limits - Abdominal General gastrointestinal: Present: soft, non-tender, non-distended, normal bowel sounds Male genitourinary: Present: normal - Integumentary Integumentary: Present: clear, warm, dry - Musculoskeletal Musculoskeletal: gait normal, strength equal bilaterally - Psychiatric Psychiatric: appropriate mood/affect, intact judgment & insight - Neurologic Neurologic: CNII-XII intact, moves all extremities HEART Score - HEART Score Troponin: Troponin T 0.575 ng/mL (0.00-0.029) H* 10/26/21 02:23 Results - Labs CBC & Chem 7: 10/26/21 02:23 10/26/21 02:23 Labs: Laboratory Last Values WBC 9.0 K/mm3 (4.5-11.0) 10/26/21 02:23 RBC 2.48 M/mm3 (3.65-5.03) L 10/26/21 02:23 Hgb 7.7 gm/dl (11.8-15.2) L 10/26/21 02:23 Hct 23.2 % (35.5-45.6) L 10/26/21 02:23 MCV 94 fl (84-94) 10/26/21 02:23 MCH 31 pg (28-32) 10/26/21 02:23 MCHC 33 % (32-34) 10/26/21 02:23 RDW 14.8 % (13.2-15.2) 10/26/21 02:23 Plt Count 171 K/mm3 (140-440) 10/26/21 02:23 Lymph % (Auto) 9.1 % (13.4-35.0) L 10/26/21 02:23 Chambers % (Auto) 6.0 % (0.0-7.3) 10/26/21 02:23 Eos % (Auto) 1.2 % (0.0-4.3) 10/26/21 02:23 Baso % (Auto) 1.0 % (0.0-1.8) 10/26/21 02:23 Lymph # (Auto) 0.8 K/mm3 (1.2-5.4) L 10/26/21 02:23 Chambers # (Auto) 0.5 K/mm3 (0.0-0.8) 10/26/21 02:23 Eos # (Auto) 0.1 K/mm3 (0.0-0.4) 10/26/21 02:23 Baso # (Auto) 0.1 K/mm3 (0.0-0.1) 10/26/21 02:23 Seg Neutrophils % 82.7 % (40.0-70.0) H 10/26/21 02:23 Seg Neutrophils # 7.5 K/mm3 (1.8-7.7) 10/26/21 02:23 PT 13.7 Sec. (12.2-14.9) 10/26/21 02:23 INR 0.95 (0.87-1.13) 10/26/21 02:23 APTT 38.2 Sec. (24.2-36.6) H 10/26/21 02:23 Sodium 139 mmol/L (137-145) 10/26/21 02:23 Potassium 6.4 mmol/L (3.6-5.0) H* 10/26/21 02:23 Chloride 96.9 mmol/L (98-107) L 10/26/21 02:23 Carbon Dioxide 20 mmol/L (22-30) L 10/26/21 02:23 Anion Gap 29 mmol/L 10/26/21 02:23 BUN 60 mg/dL (9-20) H 10/26/21 02:23 Creatinine 11.5 mg/dL (0.8-1.3) H 10/26/21 02:23 Estimated GFR 5 ml/min 10/26/21 02:23 BUN/Creatinine Ratio 5 % 10/26/21 02:23 Glucose 108 mg/dL (75-100) H 10/26/21 02:23 Calcium 9.8 mg/dL (8.4-10.2) 10/26/21 02:23 Troponin T 0.575 ng/mL (0.00-0.029) H* 10/26/21 02:23 Triglycerides 90 mg/dL (2-149) 10/26/21 02:23 Cholesterol 176 mg/dL (50-199) 10/26/21 02:23 LDL Cholesterol Direct 106 mg/dL (50-130) 10/26/21 02:23 HDL Cholesterol 58 mg/dL (40-59) 10/26/21 02:23 Cholesterol/HDL Ratio 3.03 % 10/26/21 02:23 Lipase 34 units/L (13-60) 10/26/21 02:23 - Imaging and Cardiology Chest x-ray: report reviewed Assessment and Plan VTE prophylaxis?: Chemical Plan of care discussed with patient/family: Yes - Patient Problems (1) ESRD needing dialysis Current Visit: Yes Status: Acute Plan to address problem: Admit to the medical telemetry. Avoid nephrotoxic drug. Renally dose medication. Continue home medication. Care discussed with on-call nephrology Dr. Lowry for emergent dialysis. Recheck BMP in the morning (2) Acute hyperkalemia Current Visit: Yes Status: Acute Plan to address problem: Patient received albuterol, calcium chloride, insulin and dextrose. discussed the patient with Dr. Lowry, biofuels production associate on-call for the patient he stated that he will put dialysis order. (3) Hypertensive emergency Current Visit: Yes Status: Acute Plan to address problem: Hydralazine 10 mg IV every 6 hours as needed. We will continue the home medication. We will monitor the patient closely (4) Volume overload Current Visit: Yes Status: Acute Plan to address problem: Avoid volume overload. Case discussed with on-call biofuels production associate Dr. Lowry for emergent dialysis. (5) DVT prophylaxis Current Visit: Yes Status: Acute Plan to address problem: Heparin 5000 units subcu every 8 hours for DVT prophylaxis. Pepcid 20 mg p.o. twice daily for GI prophylaxis. Patient is a full code
[2021-10-26 06:19] LABS: Basophils # (Auto) 0.1 K/mm3 (0.0-0.1); Basophils % (Auto) 1.1 % (0.0-1.8); Eosinophils # (Auto) 0.2 K/mm3 (0.0-0.4); Eosinophils % (Auto) 2.7 % (0.0-4.3); Hematocrit 22.3 % (35.5-45.6); Hemoglobin 7.1 gm/dl (11.8-15.2); Lymphocytes % (Auto) 13.8 % (13.4-35.0); Mean Corpuscular HGB Conc 32 % (32-34); Mean Corpuscular Volume 94 fl (84-94); Monocytes # (Auto) 0.7 K/mm3 (0.0-0.8); Monocytes % (Auto) 9.5 % (0.0-7.3); Platelet Count 169 K/mm3 (140-440); Red Blood Count 2.37 M/mm3 (3.65-5.03); Red Cell Distribution Width 14.7 % (13.2-15.2)
[2021-10-26 06:38] LABS: Calcium 9.9 mg/dL (8.4-10.2)
[2021-10-26] MEDS: HEPARIN 5,000 UNIT/1 ML VIAL SUB-Q SCH ×2 (07:07→14:41)
[2021-10-26] MEDS: SEVELAMER CARBONATE 800 MG TAB PO SCH ×3 (08:05→16:44)
[2021-10-26] MEDS: IPRATROPIUM/ALBUTEROL SULFATE 3 ML AMPUL.NEB IH SCH ×3 (08:09→20:52)
[2021-10-26] MEDS ORDERED: SODIUM CHLORIDE 0.9% 100 ML IV PRN (09:00)
[2021-10-26] MEDS ORDERED: EPOETIN ALFA-EPBX 20,000 UNIT/1 ML VIAL IV PRN (09:00)
--- NOTE | 2021-10-26 09:43 | Electrocardiograph Report ---
[facility] Test Date: 2021-10-26 Test Time: 02:18:45 Pat Name: TRAVIS COLON Department: Room: [place] [address] Gender: M Bowl Attendant: KIESHA : 1980 Requested By: JODY INFANTE Order Number: [id number] Reading MD: Ralph Houston Measurements Intervals [place] Rate: 87 P: 86 DC: 184 QRS: 79 QRSD: 102 T: 59 QT: 392 QTc: 471 Interpretive Statements Sinus rhythm Left atrial enlargement Borderline ST depression, lateral leads Compared to ECG 08/13/2021 00:21:25 Atrial abnormality now present Sinus bradycardia no longer present Intraventricular conduction delay no longer present Left ventricular hypertrophy no longer present Early repolarization no longer present ST (T wave) deviation still present Electronically Signed On 10-26-2021 9:42:37 EST by Ralph Houston
[2021-10-26] MEDS ORDERED: NIFEdipine XL 30 MG TAB PO SCH (10:00)
[2021-10-26] MEDS ORDERED: LOSARTAN 50 MG TAB PO SCH (10:00)
[2021-10-26] MEDS ORDERED: FAMOTIDINE 20 MG TAB PO SCH (10:00)
--- NOTE | 2021-10-26 10:01 | Consultation ---
History of Present Illness - Reason for Consult Consult date: 10/26/21 end stage renal disease - History of Present Illness This is a 41 year-old man with ESRD who presents for missed HD Patient usually dialyzes // at [facility]. Last HD 10/22 due to holiday schedule, missed treatment 10/24 and presented to hospital. Denies any recent issues with HD, including dizziness, lightheadedness, cramping, chest pain on HD. Currently, patient denies any issues including dyspnea, edema, access issues, nausea, vomiting, headaches. Past History Past Medical History: ESRD, hypertension, migraines, renal failure, other (Headache migraine) Medications and Allergies Allergies Allergy/AdvReac Type Severity Reaction Status Date / Time cefazolin Allergy Severe Anaphylaxis Verified 10/26/21 02:29 Home Medications Medication Instructions Recorded Confirmed Last Taken Type Sevelamer Carbonate [Renvela] 1,600 mg PO AC #90 tablet 03/13/19 08/12/21 08/11/21 19:30 Rx 1,600 mg Famotidine [Pepcid] 10 mg PO BID #60 tablet 03/15/19 08/12/21 Unknown Rx Losartan [Cozaar] 100 mg PO QDAY #30 tablet 03/15/19 08/12/21 Unknown Rx Losartan [Cozaar] 100 mg PO QDAY tablet 08/13/21 Unknown Rx NIFEdipine XL [Procardia Xl] 30 mg PO Q12HR 30 Days #60 tablet 08/13/21 Unknown Rx Sevelamer Carbonate [Renvela] 1,600 mg PO AC tablet 08/13/21 Unknown Rx Active Meds: Active Medications Acetaminophen (Acetaminophen 325 Mg Tab) 650 mg PO Q4H PRN PRN Reason: Pain MILD(1-3)/Fever >100.5/[place]OL[place] Albuterol (Albuterol 2.5 Mg/3 Ml Nebu) 2.5 mg IH Q4HRT PRN PRN Reason: Shortness Of Breath Albuterol/Ipratropium (Ipratropium/Albuterol Sulfate 3 Ml Ampul.Neb) 1 ampul IH Q6HRT DAO Last Admin: 10/26/21 08:09 Dose: 1 ampul Documented by: Aspirin (Aspirin 81 Mg Tab Chew) 81 mg PO QDAY DAO Atorvastatin Calcium (Atorvastatin 40 Mg Tab) 40 mg PO QHS DAO Famotidine (Famotidine 20 Mg Tab) 20 mg PO QAM [facility] Heparin Sodium (Porcine) (Heparin 5,000 Unit/1 Ml Vial) 5,000 unit SUB-Q Q8HR [facility] Last Admin: 10/26/21 07:07 Dose: 5,000 unit Documented by: Hydromorphone HCl (Hydromorphone 1 Mg/1 Ml Inj) 0.5 mg IV Q3H PRN PRN Reason: Pain , Severe (7-10) Sodium Chloride (Nacl 0.9%) 100 mls @ 999 mls/hr IV TASHA PRN PRN Reason: Hypotension Losartan Potassium (Losartan 50 Mg Tab) 100 mg PO QDAY [facility] Morphine Sulfate (Morphine 2 Mg/1 Ml Inj) 2 mg IV Q4H PRN PRN Reason: Pain, Moderate (4-6) Nifedipine (Nifedipine Xl 30 Mg Tab) 30 mg PO Q12HR [facility] Nitroglycerin (Nitroglycerin 0.4 Mg Tab Subl) 0.4 mg SL Q5M PRN PRN Reason: Chest Pain Ondansetron HCl (Ondansetron 4 Mg/2 Ml Inj) 4 mg IV Q8H PRN PRN Reason: Nausea And Vomiting Sevelamer Carbonate (Sevelamer Carbonate 800 Mg Tab) 1,600 mg PO [facility] Last Admin: 10/26/21 08:05 Dose: 1,600 mg Documented by: Sodium Chloride (Sodium Chloride 0.9% 10 Ml Flush Syringe) 10 ml IV BID [facility] Sodium Chloride (Sodium Chloride 0.9% 10 Ml Flush Syringe) 10 ml IV PRN PRN PRN Reason: LINE FLUSH Tramadol HCl (Tramadol 50 Mg Tab) 50 mg PO Q6H PRN PRN Reason: Pain, Moderate (4-6) Review of Systems All systems: negative (as per HPI) Exam - Vital Signs Vital signs: Vital Signs Pulse Ox 100 10/26/21 02:16 - Physical Exam Narrative exam: Constitutional: no acute distress Head: NC/AT Neck: supple Lungs: clear to auscultation CV: RRR, no M/R/G Abdomen: soft, non-tender, bowel sounds present Back: nontender Extremities: no edema, pulses WNL Skin: intact Neuro: no focal deficits, alert and oriented x4 Results - Lab Results 10/26/21 06:06 10/26/21 06:06 Most recent lab results Calcium 9.9 mg/dL (8.4-10.2) 10/26/21 06:06 Assessment and Plan This is a 41 year old man who presents with hyperkalemia, missed HD. # ESRD: HD today for hyperkalemia/electrolyte management, volume/toxin removal. Plan to continue HD // or prn - daily labs - renally dose meds - avoid nephrotoxins - renal diet - verbal consent obtained for HD # Anemia: last hemoglobin 7.1, ESAs with HD ordered # HTN: UF as tolerated. BP stable # Secondary Hyperparathyroidism: continue home binders as needed, vitamin D analogs prn
[2021-10-26 13:13] LABS: Hepatitis C Virus Antibody Non-Reactive (NonReactive)
--- NOTE | 2021-10-26 13:19 | Consultation ---
History of Present Illness Consult date: 10/26/21 Consult reason: chest pain History of present illness: Patient is a 41-year-old man with chronic hypertension and end-stage renal di sease on hemodialysis. No prior cardiac history. He is admitted with chest pressure and shortness of breath 2 days after he missed a scheduled routine dialysis session. He states that he was unable to present to dialysis due to transportation problems. In the emergency room, he was found markedly hypertensive with a systolic blood pressure of 205, EKG was a sinus rhythm with left ventricular hypertrophy and nonspecific ST changes, chest x-ray demonstrated very mild cardiomegaly, with mild interstitial edema. His symptoms resolved, and clinical status returned to baseline after resumption of dialysis. An echocardiogram done today shows normal left ventricular systolic function, ejection fraction 55%, there was heavy calcification of the posterior mitral leaflet, associated with a small transmitral gradient and mild to moderate mitral regurgitation. Patient is currently still in the emergency room, awaiting bed placement, looks and feels well, no acute distress. Remains hemodynamically stable. Past History Past Medical History: ESRD, hypertension, migraines, renal failure, other (Headache migraine) Medications and Allergies Allergies Allergy/AdvReac Type Severity Reaction Status Date / Time cefazolin Allergy Severe Anaphylaxis Verified 10/26/21 02:29 Home Medications Medication Instructions Recorded Confirmed Last Taken Type Sevelamer Carbonate [Renvela] 1,600 mg PO AC #90 tablet 03/13/19 08/12/21 08/11/21 19:30 Rx 1,600 mg Famotidine [Pepcid] 10 mg PO BID #60 tablet 03/15/19 08/12/21 Unknown Rx Losartan [Cozaar] 100 mg PO QDAY #30 tablet 03/15/19 08/12/21 Unknown Rx Losartan [Cozaar] 100 mg PO QDAY tablet 08/13/21 Unknown Rx NIFEdipine XL [Procardia Xl] 30 mg PO Q12HR 30 Days #60 tablet 08/13/21 Unknown Rx Sevelamer Carbonate [Renvela] 1,600 mg PO AC tablet 08/13/21 Unknown Rx Active Meds: Active Medications Acetaminophen (Acetaminophen 325 Mg Tab) 650 mg PO Q4H PRN PRN Reason: Pain MILD(1-3)/Fever >100.5/HOLLEY Albuterol (Albuterol 2.5 Mg/3 Ml Nebu) 2.5 mg IH Q4HRT PRN PRN Reason: Shortness Of Breath Albuterol/Ipratropium (Ipratropium/Albuterol Sulfate 3 Ml Ampul.Neb) 1 ampul IH Q6HRT [facility] Last Admin: 10/26/21 08:09 Dose: 1 ampul Documented by: Aspirin (Aspirin 81 Mg Tab Chew) 81 mg PO QDAY [facility] Atorvastatin Calcium (Atorvastatin 40 Mg Tab) 40 mg PO QHS [facility] Famotidine (Famotidine 20 Mg Tab) 20 mg PO QAM [facility] Last Admin: 10/26/21 10:26 Dose: 20 mg Documented by: Heparin Sodium (Porcine) (Heparin 5,000 Unit/1 Ml Vial) 5,000 unit SUB-Q Q8HR [facility] Last Admin: 10/26/21 07:07 Dose: 5,000 unit Documented by: Hydromorphone HCl (Hydromorphone 1 Mg/1 Ml Inj) 0.5 mg IV Q3H PRN PRN Reason: Pain , Severe (7-10) Sodium Chloride (Nacl 0.9%) 100 mls @ 999 mls/hr IV TASHA PRN PRN Reason: Hypotension Losartan Potassium (Losartan 50 Mg Tab) 100 mg PO QDAY [facility] Last Admin: 10/26/21 10:25 Dose: 100 mg Documented by: Morphine Sulfate (Morphine 2 Mg/1 Ml Inj) 2 mg IV Q4H PRN PRN Reason: Pain, Moderate (4-6) Nifedipine (Nifedipine Xl 30 Mg Tab) 30 mg PO Q12HR [facility] Last Admin: 10/26/21 10:26 Dose: 30 mg Documented by: Nitroglycerin (Nitroglycerin 0.4 Mg Tab Subl) 0.4 mg SL Q5M PRN PRN Reason: Chest Pain Ondansetron HCl (Ondansetron 4 Mg/2 Ml Inj) 4 mg IV Q8H PRN PRN Reason: Nausea And Vomiting Sevelamer Carbonate (Sevelamer Carbonate 800 Mg Tab) 1,600 mg PO AC [facility] Last Admin: 10/26/21 12:13 Dose: 1,600 mg Documented by: Sodium Chloride (Sodium Chloride 0.9% 10 Ml Flush Syringe) 10 ml IV BID [facility] Last Admin: 10/26/21 10:33 Dose: 10 ml Documented by: Sodium Chloride (Sodium Chloride 0.9% 10 Ml Flush Syringe) 10 ml IV PRN PRN PRN Reason: LINE FLUSH Tramadol HCl (Tramadol 50 Mg Tab) 50 mg PO Q6H PRN PRN Reason: Pain, Moderate (4-6) Review of Systems Cardiovascular: chest pain, shortness of breath, no orthopnea, no palpitations, no rapid/irregular heart beat, no edema, no syncope, no lightheadedness Physical Examination Vital Signs Pulse Ox 100 10/26/21 02:16 General appearance: no acute distress HEENT: Positive: PERRL Neck: Positive: neck supple Cardiac: Positive: Reg Rate and Rhythm Lungs: Positive: Decreased Breath Sounds Neuro: Positive: Grossly Intact Abdomen: Positive: Soft Male genitourinary: Positive: deferred Skin: Positive: Clear Extremities: Absent: edema Results 10/26/21 06:06 10/26/21 06:06 Coagulation 10/26/21 Range/Units 02:23 PT 13.7 (12.2-14.9) Sec. INR 0.95 (0.87-1.13) APTT 38.2 H (24.2-36.6) Sec. Lipids 10/26/21 Range/Units 02:23 Triglycerides 90 (2-149) mg/dL Cholesterol 176 (50-199) mg/dL HDL Cholesterol 58 (40-59) mg/dL Cholesterol/HDL Ratio 3.03 % CBC 10/26/21 10/26/21 Range/Units 02:23 06:06 WBC 9.0 7.1 (4.5-11.0) K/mm3 RBC 2.48 L 2.37 L (3.65-5.03) M/mm3 Hgb 7.7 L 7.1 L (11.8-15.2) gm/dl Hct 23.2 L 22.3 L (35.5-45.6) % Plt Count 171 169 (140-440) K/mm3 Lymph # (Auto) 0.8 L 1.0 L (1.2-5.4) K/mm3 [place] # (Auto) 0.5 0.7 (0.0-0.8) K/mm3 Eos # (Auto) 0.1 0.2 (0.0-0.4) K/mm3 Baso # (Auto) 0.1 0.1 (0.0-0.1) K/mm3 Comprehensive Metabolic Panel 10/26/21 10/26/21 Range/Units 02:23 06:06 Sodium 139 138 (137-145) mmol/L Potassium 6.4 H* 5.6 H (3.6-5.0) mmol/L Chloride 96.9 L 99.1 (98-107) mmol/L Carbon Dioxide 20 L 19 L (22-30) mmol/L BUN 60 H 61 H (9-20) mg/dL Creatinine 11.5 H 11.4 H (0.8-1.3) mg/dL Glucose 108 H 75 (75-100) mg/dL Calcium 9.8 9.9 (8.4-10.2) mg/dL EKG interpretations - Telemetry EKG Rhythm: Sinus Rhythm Assessment and Plan - Patient Problems (1) Uncontrolled hypertension Current Visit: Yes Status: Acute Plan to address problem: Patient presented with uncontrolled hypertension, resulting from noncompliance w ith medical therapy and routine hemodialysis treatments. We will resume his regular antihypertensive management. (2) Volume overload Current Visit: Yes Status: Acute Plan to address problem: Patient presents with symptoms some signs of volume overload, following noncompliance with routine hemodialysis. Symptoms have resolved that he appears clinically stable following resumption of hemodialysis. Continue current medical management.
[2021-10-26 13:27] LABS: Hepatitis B Surface Antigen Nonreactive (Negative)
--- NOTE | 2021-10-26 19:45 | Discharge Summary ---
Providers - Providers Date of Admission: 10/26/21 03:35 Date of discharge: 10/26/21 Attending physician: MARJORIE CORTEZ 10/26/21 Consult to Cardiac Rehabilitation [CONS] Routine Reason For Exam: Phase I 10/26/21 03:33 Consult to Physician [CONS] Stat Comment: Dr. Gutierrez spoke with Dr. 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 No prior cardiac history. He is admitted with chest pressure and shortness of breath 2 days after he missed a scheduled routine di alysis session. He states that he was unable to present to dialysis due to transportation problems. In the emergency room, he was found markedly hypertensive with a systolic blood pressure of 205, EKG was a sinus rhythm with left ventricular hypertrophy and nonspecific ST changes, chest x-ray demonstrated very mild cardiomegaly, with mild interstitial edema. His symptoms resolved, and clinical status returned to baseline after resumption of dialysis. An echocardiogram done today shows normal left ventricular systolic function, ejection fraction 55%, there was heavy calcification of the posterior mitral leaflet, associated with a small transmitral gradient and mild to moderate mitral regurgitation. Patient is currently still in the emergency room, awaiting bed placement, looks and feels well, no acute distress. Remains hemodynamically stable. Assessment and Plan VTE prophylaxis?: Chemical Plan of care discussed with patient/family: Yes - Patient Problems (1) ESRD needing dialysis Current Visit: Yes Status: Acute Plan to address problem: Admit to the medical telemetry. Avoid nephrotoxic drug. Renally dose medication. Continue home medication. Care discussed with on-call nephrology Dr. Lozano for emergent dialysis. Recheck BMP in the morning (2) Acute hyperkalemia Current Visit: Yes Status: Acute Plan to address problem: Potassium level corrected (3) Hypertensive emergency Current Visit: Yes Status: Acute Plan to address problem: Blood pressure is improved (4) Volume overload Current Visit: Yes Status: Acute Plan to address problem: Avoid volume overload. Case discussed with on-call fisher mussel Dr. Lozano for emergent dialysis. Disposition: 01 HOME / SELF CARE / HOMELESS Final Discharge Diagnosis (Prints w/discharge instructions): Volume overload. Hyperkalemia. Hypertensive emergency. ESRD needing hemodialysis Time spent for discharge: 35 minutes Core Measure Documentation - Palliative Care Palliative Care/ Comfort Measures: Not Applicable - Core Measures Any of the following diagnoses?: none Exam - Constitutional Vitals: Temp Pulse Resp BP Pulse Ox 98.0 F 88 14 145/91 100 10/26/21 19:30 10/26/21 19:30 10/26/21 19:30 10/26/21 19:30 10/26/21 19:30 General appearance: Present: no acute distress, well-nourished - EENT Eyes: Present: PERRL ENT: hearing intact, clear oral mucosa - Neck Neck: Present: supple, normal ROM - Respiratory Respiratory effort: normal Respiratory: bilateral: CTA - Cardiovascular Heart rate: 78 Rhythm: regular Heart Sounds: Present: S1 & S2. Absent: rub, click - Extremities Extremities: no ischemia, pulses intact, pulses symmetrical, No edema Peripheral Pulses: within normal limits - Abdominal General gastrointestinal: Present: soft, non-tender, non-distended, normal bowel sounds Male genitourinary: Present: normal - Rectal Rectal Exam: deferred - Integumentary Integumentary: Present: clear, warm, dry - Musculoskeletal Musculoskeletal: gait normal, strength equal bilaterally - Psychiatric Psychiatric: appropriate mood/affect, intact judgment & insight - Neurologic Neurologic: CNII-XII intact, moves all extremities - Allied Health Allied health notes reviewed: nursing, case management Plan Activity: no restrictions Diet: low salt Follow up with: PRIMARY CARE, [Primary Care Provider] - 7 Days
[2021-10-26 21:45] VITALS: BP 156/94
[2021-10-27] MEDS ORDERED: ASPIRIN 81 MG TAB CHEW PO SCH (10:00)
== END 2021-10-26 21:30 | disposition home or self-care (01) | DRG 640 ==
LOC: ED 02:01 → 4A 03:35 → CC1 06:42
PROVIDERS: ADMIT Hospitalist; ATTEND Internal Medicine
PROC: 5A1D70Z Performance of Urinary Filtration, Intermittent, Less than 6 Hours Per Day (ICD-10-PCS; principal; 2021-10-26)
DX: E87.5 Hyperkalemia (principal); N18.6 End stage renal disease; I12.0 Hypertensive chronic kidney disease with stage 5 chronic kidney disease or end stage renal disease; I16.1 Hypertensive emergency; N25.81 Secondary hyperparathyroidism of renal origin; R77.8 Other specified abnormalities of plasma proteins; Z88.8 Allergy status to other drugs, medicaments and biological substances; G43.909 Migraine, unspecified, not intractable, without status migrainosus; F17.200 Nicotine dependence, unspecified, uncomplicated; Z79.899 Other long term (current) drug therapy; D64.9 Anemia, unspecified
CPT/HCPCS: 36415; 71045; 80048; 80061; 80074; 83690; 84484; 85025; 85610; 85730; 93005; 93306; 94640; 94644; 94760; 99291; G0378; J3490; Q9967; J0360; J1644; J1815; J2270; J2405

== ENCOUNTER 2021-12-18 06:51 | Observation (INO) | payer SELFPAY ==
--- NOTE | 2021-12-18 07:16 | Emergency Department Report ---
HPI - General Chief Complaint: Recheck/Abnormal Lab/Rx Time Seen by Provider: 12/18/21 07:03 - HPI HPI: Room 6 The patient is a 41-year-old male present with a chief complaint of shortness of breath. The patient states he went to his [facility] this morning for hemodialysis but was told his potassium was elevated, his blood pressure was too elevated and he admitted to shortness of breath. When I asked the patient how did they determine his potassium was elevated he states he does not know. Patient admits to shortness of breath for the past 5 days intermittent. Patient denies history of cough or fever. Patient complains of some cramping to the left ribs since last night as well as a headache. Patient states has been compliant with his medication. Patient states he was last dialyzed 2 days ago (, 12/16/2021) ED Past Medical Hx - Past Medical History Previous Medical History?: Yes Hx Hypertension: Yes Hx Congestive Heart Failure: No (BNP >16767) Hx Renal Disease: Yes (ESRD, dialysis , , Mon) Hx Headaches / Migraines: Yes Additional medical history: arianne meds. senispar, vit b complex, clonidine, lisinopril, minoxidil, norvask, ran- renal; kaexalate - Surgical History Past Surgical History?: Yes Additional Surgical History: Left upper extremity fistula (no longer uses). Vas-Cath (right subclavicular) - Family History Family history: no significant - Social History Smoking Status: Current Some Day Smoker Substance Use Type: None (Denies illicit drug use) - Medications Home Medications: Home Medications Medication Instructions Recorded Confirmed Last Taken Type Sevelamer Carbonate [Renvela] 1,600 mg PO AC #90 tablet 03/13/19 08/12/21 08/11/21 19:30 Rx 1,600 mg Aspirin [Aspirin BABY CHEW TAB] 81 mg PO QDAY #90 tab.chew 10/26/21 Unknown Rx AtorvaSTATin [Lipitor] 40 mg PO QHS #90 tablet 10/26/21 Unknown Rx Famotidine [Pepcid] 10 mg PO BID #60 tablet 10/26/21 Unknown Rx Losartan [Cozaar] 100 mg PO QDAY #90 tablet 10/26/21 Unknown Rx Losartan [Cozaar] 100 mg PO QDAY #90 tablet 10/26/21 Unknown Rx NIFEdipine XL [Procardia Xl] 30 mg PO Q12HR #60 tablet 10/26/21 Unknown Rx Sevelamer Carbonate [Renvela] 1,600 mg PO AC #90 tablet 10/26/21 Unknown Rx traMADoL [Ultram 50 MG tab] 50 mg PO Q6H PRN #20 tablet 10/26/21 Unknown Rx ED Review of Systems ROS: Stated complaint: ABNORMAL LABS FROM DIALYSIS Other details as noted in HPI Constitutional: denies: fever Eyes: denies: eye pain ENT: denies: throat pain Respiratory: shortness of breath. denies: cough Cardiovascular: denies: chest pain Endocrine: no symptoms reported Gastrointestinal: denies: nausea, vomiting Genitourinary: denies: testicular pain Musculoskeletal: other (Left rib pain). denies: back pain Neurological: headache Physical Exam - Physical Exam Physical Exam: GENERAL: The patient is well-developed well-nourished male lying on stretcher not appearing to be in acute distress. [] HEENT: Normocephalic. Atraumatic. Extraocular motions are intact. Patient has moist mucous membranes. NECK: Supple. Trachea midline CHEST/LUNGS: Clear to auscultation. There is no respiratory distress noted. HEART/CARDIOVASCULAR: Regular. There is no tachycardia. There is no gallop rub or murmur. ABDOMEN: Abdomen is soft, nontender. Patient has normal bowel sounds. There is no abdominal distention. SKIN: There is no rash. There is no edema. There is no diaphoresis. NEURO: The patient is awake, alert, and oriented. The patient is cooperative. The patient has no focal neurologic deficits. The patient has normal speech. GCS 15 MUSCULOSKELETAL: There is no evidence of acute injury. ED Course - Consultations Consultation #1: 12/18/21 09:01 Nephrology paged 12/18/21 09:11 Case discussed with senior industrial engineer Dr. Hilton- Will arrange for hemodialysis. Have hospitalist admit ED Medical Decision Making - Lab Data Result diagrams: 12/18/21 07:21 12/18/21 07:21 Laboratory Tests 12/18/21 12/18/21 07:21 07:21 WBC 8.0 RBC 3.11 L Hgb 9.7 L Hct 28.4 L MCV 92 MCH 31 MCHC 34 RDW 16.3 H Plt Count 232 Eos % (Auto) Shipping Weigher Sodium 139 Potassium 5.4 H Chloride 95.2 L Carbon Dioxide 23 Anion Gap 26 BUN 49 H Creatinine 8.4 H Estimated GFR 7 BUN/Creatinine Ratio 6 Glucose 93 Calcium 9.5 Total Creatine Kinase 78 CK-MB (CK-2) 2.0 CK-MB (CK-2) Rel Index 2.5 Troponin T 0.079 H - EKG Data -: EKG Interpreted by Me EKG shows normal: sinus rhythm Rate: normal - EKG Data When compared to previous EKG there are: no significant change Interpretation: unchanged when compared t (10/18/2021), [facility] - Radiology Data Radiology results: report reviewed (Chest x-ray), image reviewed (Chest x-ray) interpreted by me: Chest [id number] congestion. No pneumothorax. No definite focal infiltrate [facility] [address] [place] [address] XRay Report Signed Patient: TRAVIS COLON MR# : [id number] : 1980 Acct:[id number] Age/Sex: 41 / M ADM Date: 12/18/21 Loc: ED Attending Dr: Ordering Physician: BILL SPANN MD Date of Service: 12/18/21 Procedure(s): XR chest 1V ap Accession Number(s): [id number] cc: BILL SPANN MD Fluoro Time In Minutes: . XR chest 1V ap INDICATION / CLINICAL INFORMATION: Shortness of breath. COMPARISON: 10/18/2021 FINDINGS: SUPPORT DEVICES: None. HEART /PULMONARY VASCULATURE: Cardiac enlargement with pulmonary vasculature congestion. LUNGS / PLEURA: Moderate diffuse increased interstitial markings. No focal airspace consolidation. No sizable pleural effusion. No pneumothorax. IMPRESSION: 1. Findings suggestive of CHF/fluid overload with moderate pulmonary edema. Signer Name: Yue Andersen MD Signed: 12/18/2021 7:42 AM Workstation Name: [id number] Transcribed By: LONNIE Dictated By: YUE ANDERSEN MD Electronically Authenticated By: YUE ANDERSEN MD Signed Date/Time: 12/18/21741 DD/ 0 TD/TT: Print Cancel - Differential Diagnosis ESRD, volume overload, hyperkalemia Critical care attestation.: If time is entered above; I have spent that time in minutes in the direct care of this critically ill patient, excluding procedure time. ED Disposition Clinical Impression: ESRD needing dialysis, Pulmonary edema, Hyperkalemia Disposition: ADMITTED INPATIENT Is pt being admited?: Yes Does the pt Need Aspirin: No Condition: Fair Instructions: Pulmonary Edema (ED) Referrals: PRIMARY CARE,MD [Primary Care Provider] - 3-5 Days Time of Disposition: 09:12 (Hospitalist called (Dr. Pan))
[2021-12-18 07:45] LABS: Hematocrit 28.4 % (35.5-45.6); Hemoglobin 9.7 gm/dl (11.8-15.2); Mean Corpuscular HGB Conc 34 % (32-34); Mean Corpuscular Volume 92 fl (84-94); Platelet Count 232 K/mm3 (140-440); Red Blood Count 3.11 M/mm3 (3.65-5.03); Red Cell Distribution Width 16.3 % (13.2-15.2)
--- NOTE | 2021-12-18 07:46 | XRay Report ---
. XR chest 1V ap INDICATION / CLINICAL INFORMATION: Shortness of breath. COMPARISON: 10/18/2021 FINDINGS: SUPPORT DEVICES: None. HEART /PULMONARY VASCULATURE: Cardiac enlargement with pulmonary vasculature congestion. LUNGS / PLEURA: Moderate diffuse increased interstitial markings. No focal airspace consolidation. No sizable pleural effusion. No pneumothorax. IMPRESSION: 1. Findings suggestive of CHF/fluid overload with moderate pulmonary edema. Signer Name: Eyad Andersen MD Signed: 12/18/2021 7:42 AM Workstation Name: [id number]
[2021-12-18 08:21] LABS: Calcium 9.5 mg/dL (8.4-10.2)
[2021-12-18] MEDS ORDERED: cloNIDine 0.1 MG TAB PO ONE (09:11)
[2021-12-18] MEDS ORDERED: ONDANSETRON 4 MG/2 ML INJ IV PRN (10:16)
[2021-12-18] MEDS ORDERED: oxyCODONE /ACETAMINOPHEN 5-325MG TAB PO PRN (10:16)
[2021-12-18] MEDS ORDERED: MORPHINE 4 MG/1 ML INJ IV PRN (10:16)
[2021-12-18] MEDS ORDERED: ACETAMINOPHEN 325 MG TAB PO PRN (10:16)
[2021-12-18 10:31] LABS: Basophils % (Manual) 0 % (0.0-1.8); Total Cells Counted 100
[2021-12-18 10:32] LABS: Ovalocytes Few; Platelet Estimate Consistent w Auto
--- NOTE | 2021-12-18 10:51 | History and Physical Report ---
History of Present Illness Date of admission: 12/18/21 History of present illness: 41-year-old male with history of ESRD on HD and hypertension who presents from dialysis center. He was told that his potassium was high and was not dialyzed. He does endorse shortness of breath for the last 5 days. Dyspnea is worsened wi th exertion and he endorses a productive cough. He was last dialyzed on Monday. The sessions usually last one hour. He denies early termination of his most recent session. He denies chest pain, palpitations or general malaise. He is not vaccinated against COVID-19 or influenza. Labs were notable for K 5.4 and SCr 8.9. CXR revealed vascular congestion without infiltrate. Nephrology was consulted for dialysis. He was admitted for further care. Past History Past Medical History: dialysis, hypertension Past Surgical History: Other (avf formation) Social history: smoking (1-2 cigarettes daily) Family history: no significant family history Medications and Allergies Allergies Allergy/AdvReac Type Severity Reaction Status Date / Time cefazolin Allergy Severe Anaphylaxis Verified 10/26/21 02:29 Home Medications Medication Instructions Recorded Confirmed Last Taken Type Sevelamer Carbonate [Renvela] 1,600 mg PO AC #90 tablet 03/13/19 12/18/21 12/17/21 Rx Aspirin [Aspirin BABY CHEW TAB] 81 mg PO QDAY #90 tab.chew 10/26/21 12/18/21 12/17/21 Rx AtorvaSTATin [Lipitor] 40 mg PO QHS #90 tablet 10/26/21 12/18/21 12/17/21 Rx Famotidine [Pepcid] 10 mg PO BID #60 tablet 10/26/21 12/18/21 12/17/21 Rx Losartan [Cozaar] 100 mg PO QDAY #90 tablet 10/26/21 12/18/21 12/17/21 Rx Losartan [Cozaar] 100 mg PO QDAY #90 tablet 10/26/21 12/18/21 12/17/21 Rx NIFEdipine XL [Procardia Xl] 30 mg PO Q12HR #60 tablet 10/26/21 12/18/21 12/17/21 Rx Sevelamer Carbonate [Renvela] 1,600 mg PO AC #90 tablet 10/26/21 12/18/21 12/17/21 Rx traMADoL [Ultram 50 MG tab] 50 mg PO Q6H PRN #20 tablet 10/26/21 12/18/21 12/17/21 Rx Active Meds: Active Medications Acetaminophen (Acetaminophen 325 Mg Tab) 650 mg PO Q4H PRN PRN Reason: Pain MILD(1-3)/Fever >100.5/HOLLEY Aspirin (Aspirin 81 Mg Tab Chew) 81 mg PO QDAY DAO Atorvastatin Calcium (Atorvastatin 40 Mg Tab) 40 mg PO QHS DAO Famotidine (Famotidine 10 Mg Tab) 10 mg PO BID DAO Losartan Potassium (Losartan 50 Mg Tab) 100 mg PO QDAY DAO Morphine Sulfate (Morphine 4 Mg/1 Ml Inj) 4 mg IV Q4H PRN PRN Reason: Pain , Severe (7-10) Nifedipine (Nifedipine Xl 30 Mg Tab) 30 mg PO Q12HR DAO Ondansetron HCl (Ondansetron 4 Mg/2 Ml Inj) 4 mg IV Q8H PRN PRN Reason: Nausea And Vomiting Oxycodone/Acetaminophen (Oxycodone /Acetaminophen 5-325mg Tab) 1 tab PO Q6H PRN PRN Reason: Pain, Moderate (4-6) Sevelamer Carbonate (Sevelamer Carbonate 800 Mg Tab) 1,600 mg PO AC DAO Sodium Chloride (Sodium Chloride 0.9% 10 Ml Flush Syringe) 10 ml IV BID DAO Sodium Chloride (Sodium Chloride 0.9% 10 Ml Flush Syringe) 10 ml IV PRN PRN PRN Reason: LINE FLUSH Exam - Constitutional Vitals: Temp Pulse Resp BP Pulse Ox 98.0 F 61 15 147/103 100 12/18/21 09:28 12/18/21 09:15 12/18/21 09:15 12/18/21 09:15 12/18/21 09:15 HEART Score - HEART Score Troponin: Troponin T 0.079 ng/mL (0.00-0.029) H 12/18/21 07:21 Results - Labs CBC & Chem 7: 12/18/21 07:21 12/18/21 07:21 Labs: Laboratory Last Values WBC 8.0 K/mm3 (4.5-11.0) 12/18/21 07:21 RBC 3.11 M/mm3 (3.65-5.03) L 12/18/21 07:21 Hgb 9.7 gm/dl (11.8-15.2) L 12/18/21 07:21 Hct 28.4 % (35.5-45.6) L 12/18/21 07:21 MCV 92 fl (84-94) 12/18/21 07:21 MCH 31 pg (28-32) 12/18/21 07:21 MCHC 34 % (32-34) 12/18/21 07:21 RDW 16.3 % (13.2-15.2) H 12/18/21 07:21 Plt Count 232 K/mm3 (140-440) 12/18/21 07:21 Eos % (Auto) Silk Spotter 12/18/21 07:21 Add Manual Diff Complete 12/18/21 07:21 Total Counted 100 12/18/21 07:21 Seg Neuts % (Manual) 66.0 % (40.0-70.0) 12/18/21 07:21 Band Neutrophils % 0 % 12/18/21 07:21 Lymphocytes % (Manual) 10.0 % (13.4-35.0) L 12/18/21 07:21 Reactive Lymphs % (Man) 0 % 12/18/21 07:21 Monocytes % (Manual) 4.0 % (0.0-7.3) 12/18/21 07:21 Eosinophils % (Manual) 20.0 % (0.0-4.3) H 12/18/21 07:21 Basophils % (Manual) 0 % (0.0-1.8) 12/18/21 07:21 Metamyelocytes % 0 % 12/18/21 07:21 Myelocytes % 0 % 12/18/21 07:21 Promyelocytes % 0 % 12/18/21 07:21 Blast Cells % 0 % 12/18/21 07:21 Nucleated RBC % Not Reportable 12/18/21 07:21 Seg Neutrophils # Man 5.3 K/mm3 (1.8-7.7) 12/18/21 07:21 Band Neutrophils # 0.0 K/mm3 12/18/21 07:21 Lymphocytes # (Manual) 0.8 K/mm3 (1.2-5.4) L 12/18/21 07:21 Abs React Lymphs (Man) 0.0 K/mm3 12/18/21 07:21 Monocytes # (Manual) 0.3 K/mm3 (0.0-0.8) 12/18/21 07:21 Eosinophils # (Manual) 1.6 K/mm3 (0.0-0.4) H 12/18/21 07:21 Basophils # (Manual) 0.0 K/mm3 (0.0-0.1) 12/18/21 07:21 Metamyelocytes # 0.0 K/mm3 12/18/21 07:21 Myelocytes # 0.0 K/mm3 12/18/21 07:21 Promyelocytes # 0.0 K/mm3 12/18/21 07:21 Blast Cells # 0.0 K/mm3 12/18/21 07:21 WBC Morphology Not Reportable 12/18/21 07:21 Hypersegmented Neuts Not Reportable 12/18/21 07:21 Hyposegmented Neuts Not Reportable 12/18/21 07:21 Hypogranular Neuts Not Reportable 12/18/21 07:21 Smudge Cells Not Reportable 12/18/21 07:21 Toxic Granulation Not Reportable 12/18/21 07:21 Toxic Vacuolation Not Reportable 12/18/21 07:21 Dohle Bodies Not Reportable 12/18/21 07:21 Pelger-Huet Anomaly Not Reportable 12/18/21 07:21 Michael Rods Not Reportable 12/18/21 07:21 Platelet Estimate Consistent w auto 12/18/21 07:21 Clumped Platelets Not Reportable 12/18/21 07:21 Plt Clumps, EDTA Not Reportable 12/18/21 07:21 Large Platelets Not Reportable 12/18/21 07:21 Giant Platelets Not Reportable 12/18/21 07:21 Platelet Satelliting Not Reportable 12/18/21 07:21 Plt Morphology Comment Not Reportable 12/18/21 07:21 RBC Morphology Not Reportable 12/18/21 07:21 Dimorphic RBCs Not Reportable 12/18/21 07:21 Polychromasia Not Reportable 12/18/21 07:21 Hypochromasia Not Reportable 12/18/21 07:21 Poikilocytosis Not Reportable 12/18/21 07:21 Anisocytosis Not Reportable 12/18/21 07:21 Microcytosis Not Reportable 12/18/21 07:21 Macrocytosis Not Reportable 12/18/21 07:21 Spherocytes Not Reportable 12/18/21 07:21 Pappenheimer Bodies Not Reportable 12/18/21 07:21 Sickle Cells Not Reportable 12/18/21 07:21 Target Cells Not Reportable 12/18/21 07:21 Tear Drop Cells Not Reportable 12/18/21 07:21 Ovalocytes Few 12/18/21 07:21 Helmet Cells Not Reportable 12/18/21 07:21 Reyes-Kidder Bodies Not Reportable 12/18/21 07:21 Amorita Rings Not Reportable 12/18/21 07:21 Jairo Cells Not Reportable 12/18/21 07:21 Bite Cells Not Reportable 12/18/21 07:21 Crenated Cell Not Reportable 12/18/21 07:21 Elliptocytes Few 12/18/21 07:21 Acanthocytes (Spur) Not Reportable 12/18/21 07:21 Rouleaux Not Reportable 12/18/21 07:21 Hemoglobin C Crystals Not Reportable 12/18/21 07:21 Schistocytes Not Reportable 12/18/21 07:21 Malaria parasites Not Reportable 12/18/21 07:21 Rui Bodies Not Reportable 12/18/21 07:21 Hem Pathologist Commnt No 12/18/21 07:21 Sodium 139 mmol/L (137-145) 12/18/21 07:21 Potassium 5.4 mmol/L (3.6-5.0) H 12/18/21 07:21 Chloride 95.2 mmol/L (98-107) L 12/18/21 07:21 Carbon Dioxide 23 mmol/L (22-30) 12/18/21 07:21 Anion Gap 26 mmol/L 12/18/21 07:21 BUN 49 mg/dL (9-20) H 12/18/21 07:21 Creatinine 8.4 mg/dL (0.8-1.3) H 12/18/21 07:21 Estimated GFR 7 ml/min 12/18/21 07:21 BUN/Creatinine Ratio 6 % 12/18/21 07:21 Glucose 93 mg/dL (75-100) 12/18/21 07:21 Calcium 9.5 mg/dL (8.4-10.2) 12/18/21 07:21 Total Creatine Kinase 78 units/L (55-170) 12/18/21 07:21 CK-MB (CK-2) 2.0 ng/mL (0.0-4.0) 12/18/21 07:21 CK-MB (CK-2) Rel Index 2.5 (0-4) 12/18/21 07:21 Troponin T 0.079 ng/mL (0.00-0.029) H 12/18/21 07:21 Assessment and Plan Assessment and plan: #Pulmonary edema #ESRD requiring HD #Hypertension -restarted home BP medications: nifedipine, losartan #Hyperkalemia -k 5.4, no changes on EKG -will be corrected by K bath during dialysis Advance Directives: No VTE prophylaxis?: Mechanical Plan of care discussed with patient/family: Yes
[2021-12-18] MEDS: SEVELAMER CARBONATE 800 MG TAB PO SCH ×2 (11:41→16:30)
[2021-12-18] MEDS: LOSARTAN 50 MG TAB PO SCH (11:41)
[2021-12-18] MEDS: ASPIRIN 81 MG TAB CHEW PO SCH (11:41)
[2021-12-18 14:14] LABS: Hepatitis B Surface Antigen Non-Reactive (Negative); Hepatitis C Virus Antibody Non-Reactive (NonReactive)
[2021-12-18] MEDS: NIFEdipine XL 30 MG TAB PO SCH (21:37)
[2021-12-18] MEDS: FAMOTIDINE 10 MG TAB PO SCH (21:37)
[2021-12-19 05:51] LABS: Hematocrit 30.1 % (35.5-45.6); Hemoglobin 9.8 gm/dl (11.8-15.2); Mean Corpuscular HGB Conc 32 % (32-34); Mean Corpuscular Volume 94 fl (84-94); Platelet Count 208 K/mm3 (140-440); Red Blood Count 3.22 M/mm3 (3.65-5.03)
[2021-12-19 05:59] LABS: Calcium 9.3 mg/dL (8.4-10.2)
[2021-12-19 07:19] LABS: Anisocytosis Few; Basophils % (Manual) 0 % (0.0-1.8); Platelet Estimate Consistent w Auto; Total Cells Counted 100
--- NOTE | 2021-12-19 08:14 | Discharge Summary ---
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 Follow up with: PRIMARY MD CHELY [Primary Care Provider] - 3-5 Days
[2021-12-19] MEDS: SEVELAMER CARBONATE 800 MG TAB PO SCH ×2 (08:19→11:46)
[2021-12-19] MEDS: ASPIRIN 81 MG TAB CHEW PO SCH (09:11)
[2021-12-19] MEDS: NIFEdipine XL 30 MG TAB PO SCH (09:11)
[2021-12-19] MEDS: FAMOTIDINE 10 MG TAB PO SCH (09:11)
[2021-12-19] MEDS: LOSARTAN 50 MG TAB PO SCH (09:11)
[2021-12-19 14:15] VITALS: BP 168/76
--- NOTE | 2021-12-22 17:09 | Electrocardiograph Report ---
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
== END 2021-12-19 14:00 | disposition home or self-care (01) ==
LOC: ED 06:51 → 3A 10:16
PROVIDERS: ADMIT Student in an Organized Health Care Education/Training Program; ATTEND Student in an Organized Health Care Education/Training Program
DX: I12.0 Hypertensive chronic kidney disease with stage 5 chronic kidney disease or end stage renal disease (principal); N18.6 End stage renal disease; E87.5 Hyperkalemia; J81.1 Chronic pulmonary edema; G43.909 Migraine, unspecified, not intractable, without status migrainosus; F17.210 Nicotine dependence, cigarettes, uncomplicated; Z99.2 Dependence on renal dialysis; Z79.82 Long term (current) use of aspirin; Z79.899 Other long term (current) drug therapy; Z98.890 Other specified postprocedural states
CPT/HCPCS: 36415; 71045; 80048; 80074; 82550; 82553; 84484; 85025; 93005; 93010; 99285; G0257; G0378; 85007